=== PATIENT | male | born 1940 | race Caucasian/White ===

== ENCOUNTER 2019-03-23 14:05 | Outpatient (CLI) | payer MEDICARE, BC, SELFPAY ==
--- NOTE | 2019-03-23 14:14 | XR_ITS ---
WS: [id number] DEXA (DUAL ENERGY X-RAY ABSORPTIOMETRY) Bone mineral density was performed using a [employer] machine. HISTORY: AGE RELATED OSTEOPOROSIS WITHOUT CURRENT PATHOLOGICAL FRACTURE, 76-year-old male. COMPARISON: None available. Lumbar spine BMD (L1-L4): 1.057 g/cm2 T score: -1.4 Z score: -1.2 Total hip BMD: Left: 0.802 g/cm2. T score: -2.1 Z score: -1.4 Right: 0.763 g/cm2. T score: -2.3 Z score: -1.7 10 year probability of a major osteoporotic fracture is 13%. XR/XR DEXA axial skeleton* [id number] IMPRESSION: OSTEOPENIA.
== END 2019-03-23 14:06 | disposition home or self-care (01) ==
LOC: RADWPI 14:13
PROVIDERS: Family Provider Family Medicine; PCP Family Medicine; Visit Provider Nurse Practitioner
DX: M81.0 Age-related osteoporosis without current pathological fracture (principal)
CPT/HCPCS: 77080

== ENCOUNTER → 2019-10-19 10:33 | Outpatient (BNVA) | payer MEDICARE, BC, SELFPAY | PROVIDERS: Family Provider Family Medicine; PCP Family Medicine; Visit Provider Internal Medicine Rheumatology | DX: Z79.899 Other long term (current) drug therapy (principal); M81.0 Age-related osteoporosis without current pathological fracture | CPT/HCPCS: 36415; 82310 ==

== ENCOUNTER 2019-10-27 12:59 | Outpatient (CLI) | payer MEDICARE, BC, SELFPAY ==
[2019-10-27 13:00] VITALS: BP 138/74; PULSE 50; RESP 16; TEMP 36.9; O2SAT 94
[2019-10-27] MEDS: denosumab 60 mg SDV SUBCUT (13:20)
[2019-10-27 13:54] VITALS: BP 145/76; PULSE 53; RESP 16; TEMP 36.6; O2SAT 97
== END 2019-10-27 13:00 | disposition home or self-care (01) ==
LOC: RHEOACUTE 13:01
PROVIDERS: Family Provider Family Medicine; PCP Family Medicine; Visit Provider Internal Medicine Rheumatology
DX: M81.0 Age-related osteoporosis without current pathological fracture (principal)
CPT/HCPCS: 96372; J0897

== ENCOUNTER 2020-05-08 08:07 | Outpatient (CLI) | payer MEDICARE, BC, SELFPAY ==
[2020-05-08 09:02] LABS: Calcium 9.3 mg/dL (8.5-10.5)
== END 2020-05-08 08:08 | disposition home or self-care (01) ==
LOC: LAB 08:12
PROVIDERS: Family Provider Family Medicine; PCP Family Medicine; Visit Provider Nurse Practitioner
DX: M80.021A Age-related osteoporosis with current pathological fracture, right humerus, initial encounter for fracture (principal); X58.XXXA Exposure to other specified factors, initial encounter
CPT/HCPCS: 82310

== ENCOUNTER 2020-05-16 13:14 | Outpatient (CLI) | payer MEDICARE, BC, SELFPAY ==
[2020-05-16 13:25] VITALS: BP 148/84; PULSE 52; RESP 16; TEMP 37.2; O2SAT 97
[2020-05-16 13:35] VITALS: BP 148/84; PULSE 52; RESP 16; TEMP 37.2; O2SAT 97
[2020-05-16] MEDS: denosumab 60 mg SDV SUBCUT (13:35)
== END 2020-05-16 13:15 | disposition home or self-care (01) ==
PROVIDERS: Family Provider Family Medicine; PCP Family Medicine; Visit Provider Nurse Practitioner
DX: M80.021A Age-related osteoporosis with current pathological fracture, right humerus, initial encounter for fracture (principal)
CPT/HCPCS: 96372; J0897

== ENCOUNTER 2020-11-09 10:47 | Outpatient (CLI) | payer MEDICARE, BC, SELFPAY ==
[2020-11-09 12:48] LABS: Albumin Level 4.4 g/dL (3.5-5.2); Calcium 8.7 mg/dL (8.5-10.5)
== END 2020-11-09 10:48 | disposition home or self-care (01) ==
PROVIDERS: PCP Family Medicine; Referring Provider Nurse Practitioner; Visit Provider Nurse Practitioner
DX: M81.0 Age-related osteoporosis without current pathological fracture (principal)
CPT/HCPCS: 36415; 82040; 82310

== ENCOUNTER 2020-11-17 05:52 | Outpatient (CLI) | payer MEDICARE, BC, SELFPAY ==
[2020-11-17 09:37] VITALS: BP 150/78; PULSE 56; RESP 18; TEMP 36.8; O2SAT 96
[2020-11-17] MEDS: denosumab 60 mg SDV SUBCUT (09:45)
[2020-11-17 09:59] VITALS: BP 142/76; PULSE 55; RESP 18; TEMP 36.6; O2SAT 96
== END 2020-11-17 05:53 | disposition home or self-care (01) ==
LOC: ONCMED 05:53
PROVIDERS: PCP Family Medicine; Referring Provider Nurse Practitioner; Visit Provider Nurse Practitioner
DX: M81.0 Age-related osteoporosis without current pathological fracture (principal)
CPT/HCPCS: 96372; J0897

== ENCOUNTER 2021-02-03 09:40 | Emergency (ER) | payer MEDICARE, BC, SELFPAY ==
[2021-02-03 09:42] VITALS: BP 183/87; PULSE 62; RESP 15; O2SAT 97; BMI 27.3
--- NOTE | 2021-02-03 09:45 | CTR_ITS ---
PROCEDURE INFORMATION: Exam: CT Head Without Contrast Exam date and time: 02/03/2021 9:45 AM Age: 80 years old Clinical indication: Injury or trauma; Blunt trauma (contusions or hematomas); Patient HX: Fall hitting head on concrete TECHNIQUE: Imaging protocol: Computed tomography of the head without contrast. Total images: 208 Radiation optimization: All CT scans at this facility use at least one of these dose optimization techniques: automated exposure control; mA and/or kV adjustment per patient size (includes targeted exams where dose is matched to clinical indication); or iterative reconstruction. COMPARISON: No relevant prior studies available. RADIATION DOSE METRICS: Total DLP (mGy-cm): 950.16 FINDINGS: Brain: Global brain atrophy and chronic white matter ischemic changes are present. Cerebral ventricles: Ventricles are appropriate in size for degree of atrophy. Paranasal sinuses: Air-fluid level present in the left maxillary sinus. Mastoid air cells: Visualized mastoid air cells are well aerated. Bones/joints: Unremarkable. No acute fracture. Soft tissues: Unremarkable. CT/CT head wo con* [id number] IMPRESSION: No acute intracranial abnormality. Radiation Dose CTDIVOL = (mGy): DLP = 950.16 (mGy-cm)
--- NOTE | 2021-02-03 09:45 | CTR_ITS ---
PROCEDURE INFORMATION: Exam: CT Maxillofacial Without Contrast Exam date and time: 02/03/2021 9:45 AM Age: 80 years old Clinical indication: Injury or trauma; Fall; Blunt trauma (contusions or hematomas); Patient HX: PT fell hitting forehead on concrete. Laceration to R forehead TECHNIQUE: Imaging protocol: Computed tomography images of the face without contrast. Total images: 255 Radiation optimization: All CT scans at this facility use at least one of these dose optimization techniques: automated exposure control; mA and/or kV adjustment per patient size (includes targeted exams where dose is matched to clinical indication); or iterative reconstruction. COMPARISON: CT head wo con* [id number] 02/03/2021 9:59 AM RADIATION DOSE METRICS: Total DLP (mGy-cm): 734.23 FINDINGS: Orbital cavity: Orbits are normal. Globes are unremarkable. Bones/joints: Cervical spine pathology previously discussed on CT of the cervical spine. No facial fractures detected. Paranasal sinuses: Mucosal thickening of the paranasal sinuses noted. Air-fluid level present in the left maxillary sinus. Soft tissues: Unremarkable. Other findings: Streak artifact from dental amalgam. CT/CT facial bones wo con* [id number] IMPRESSION: No facial fractures detected. Radiation Dose CTDIVOL = (mGy): DLP = 734.23 (mGy-cm)
--- NOTE | 2021-02-03 09:45 | CTR_ITS ---
PROCEDURE INFORMATION: Exam: CT Cervical Spine Without Contrast Exam date and time: 02/03/2021 9:45 AM Age: 80 years old Clinical indication: Injury or trauma; Fall; Blunt trauma; Prior surgery; Surgery date: 6+ months; Surgery type: Cervical fusion; Patient HX: PT fell this a. M hitting forehead on concrete TECHNIQUE: Imaging protocol: Computed tomography images of the cervical spine without contrast. Total images: 336 Radiation optimization: All CT scans at this facility use at least one of these dose optimization techniques: automated exposure control; mA and/or kV adjustment per patient size (includes targeted exams where dose is matched to clinical indication); or iterative reconstruction. COMPARISON: CT facial bones wo con* [id number] 02/03/2021 10:01 AM RADIATION DOSE METRICS: Total DLP (mGy-cm): 660.53 FINDINGS: Bones/joints: Remote healed type 2 dens fracture with surgical occipital to C3 fusion. C4-6 anterior cervical spine fusion. Plate and screws in place with no evidence of hardware failure. Discs/Spinal canal/Neural foramina: Prominent atlantodental degenerative changes. C3-C4 Degenerative disc disease with disc space narrowing and osteophyte formation. Facet joint degenerative changes are present. C6-C7 Degenerative disc disease with disc space narrowing and osteophyte formation. Facet joint degenerative changes are present. Lungs: Lung apices are normal. Soft tissues: Unremarkable. CT/CT cervical spin wo con* [id number] IMPRESSION: No acute findings. Radiation Dose CTDIVOL = (mGy): DLP = 660.53 (mGy-cm)
--- NOTE | 2021-02-03 10:30 | W.ED.GENADLT ---
HPI - General Adult General: Chief complaint: Fall Stated complaint: HEAD LACERATION FROM FALL Time Seen by Provider: 02/03/21 09:43 History of Present Illness: HPI narrative: 82-year-old male with a history of Parkinson's disease, atrial fibrillation not on anticoagulation presented to the emergency room after an episode of mechanical fall. Patient reportedly tripped on his right toe and fell to the ground. Patient denies LOC. He has a mild bruise over the right forehead. Patient came to the emergency room for an eval. No other focal complaints of pain. No associated chest pain, shortness breath, palpitation, nausea/vomiting, diarrhea, lightheadedness prior to the episode of fall. Onset:9am Duration:1 hr ago Location:home Severity:mild Review of Systems Narrative: Constitutional: No fever, no chills. HEENT: No vision changes CV: No chest pain, no palpitations PULM: no cough, no dyspnea. GI: No abdominal pain, no N/V/D. : No dysuria MSKEL: No muscle pain SKIN: +R forehead bruise NEURO: No headache, no focal weakness. HEME: No visible bruises PSYCH: Normal mood PFS ED PFSH: Medical History Atrial fibrillation Diastolic dysfunction HTN (hypertension) Family History Mother , CHF age 66 CHF (congestive heart failure) Social History Smoking and tobacco status: never smoked Physical Exam Narrative: EXAM NARRATIVE: Head: Atraumatic Eyes: PERRL, conjunctiva without injection ENT: Mucous membrane moist NECK: Supple, ROM intact LUNGS: LCTAB, no crackles/rhonchi CV: RRR ABDOMEN: Soft, nontender in all quadrants EXTREMITY: Normal ROM SKIN: +R forehead bruise NEURO: Awake and alert, no focal motor deficits PSYCH: Normal mood and affect Course Vital Signs: Vital signs: Vital Signs Pulse Rate 57 L 02/03/21 10:48 Respiratory Rate 16 02/03/21 10:48 Blood Pressure 183/87 02/03/21 10:48 Pulse Oximetry 93 02/03/21 10:48 MDM - General Adult MDM Narrative: Medical decision making narrative: 80-year-old male with a history of atrial fibrillation Parkinson's disease presented to the emergency room with chest episode mechanical fall. Patient has a mild abrasion of her of the right forehead was cleaned today. Patient is given bacitracin ointment to apply daily. CT brain, CT face, CT C-spine negative for any acute findings. Rx Tylenol as needed concussion/headache Disposition: Discharge. Patient counseled regarding diagnostic impression, treatment plan. Patient given ED strict return precautions to return for continuation, worsening, or development of new symptoms. Instructed to f/u w/ PCP regarding symptoms today. Patient verbalized understanding. Imaging Data^: Other Imaging: Radiologist's impression: [employer] [id number] Scan ReportSigned Patient: Naun Schneider #: [id number]: 3Acct#:[id number]/Sex: 80 / MADM Date: 02/03/21Loc: [facility]/Bed:Attending Dr: Ordering Provider/Ordering MD: Caitlyn Andrews MD Date of Service: 02/03/21 Procedure(s): CT head wo con* [id number] Accession Number(s): [id number] Report Number: [id number] PROCEDURE INFORMATION: Exam: CT Head Without Contrast Exam date and time: 02/03/2021 9:45 AM Age: 80 years old Clinical indication: Injury or trauma; Blunt trauma (contusions or hematomas); Patient HX: Fall hitting head on concrete TECHNIQUE: Imaging protocol: Computed tomography of the head without contrast. Total images: 208 Radiation optimization: All CT scans at this facility use at least one of these dose optimization techniques: automated exposure control; mA and/or kV adjustment per patient size (includes targeted exams where dose is matched to clinical indication); or iterative reconstruction. COMPARISON: No relevant prior studies available. RADIATION DOSE METRICS: Total DLP (mGy-cm): 950.16 FINDINGS: Brain: Global brain atrophy and chronic white matter ischemic changes are present. Cerebral ventricles: Ventricles are appropriate in size for degree of atrophy. Paranasal sinuses: Air-fluid level present in the left maxillary sinus. Mastoid air cells: Visualized mastoid air cells are well aerated. Bones/joints: Unremarkable. No acute fracture. Soft tissues: Unremarkable. CT/CT head wo con* [id number] IMPRESSION: No acute intracranial abnormality. Radiation Dose CTDIVOL = (mGy): DLP = 950.16 (mGy-cm) Dictated By:Steven Guzman MDSigned By:Steven Guzman MDSigned Date/Time:02/03/21 1021DD/ [address] [id number] Scan ReportSigned Patient: Naun Schneider #: [id number]: 1942cct#:[id number]/Sex: 80 / MADM Date: 02/03/21Loc: ERRoom/Bed:Attending Dr: Ordering Provider/Ordering MD: Caitlyn Andrews MD Date of Service: 02/03/21 Procedure(s): CT facial bones wo con* [id number] Accession Number(s): [id number] Report Number: [id number] PROCEDURE INFORMATION: Exam: CT Maxillofacial Without Contrast Exam date and time: 02/03/2021 9:45 AM Age: 80 years old Clinical indication: Injury or trauma; Fall; Blunt trauma (contusions or hematomas); Patient HX: PT fell hitting forehead on concrete. Laceration to R forehead TECHNIQUE: Imaging protocol: Computed tomography images of the face without contrast. Total images: 255 Radiation optimization: All CT scans at this facility use at least one of these dose optimization techniques: automated exposure control; mA and/or kV adjustment per patient size (includes targeted exams where dose is matched to clinical indication); or iterative reconstruction. COMPARISON: CT head wo con* [id number] 02/03/2021 9:59 AM RADIATION DOSE METRICS: Total DLP (mGy-cm): 734.23 FINDINGS: Orbital cavity: Orbits are normal. Globes are unremarkable. Bones/joints: Cervical spine pathology previously discussed on CT of the cervical spine. No facial fractures detected. Paranasal sinuses: Mucosal thickening of the paranasal sinuses noted. Air-fluid level present in the left maxillary sinus. Soft tissues: Unremarkable. Other findings: Streak artifact from dental amalgam. CT/CT facial bones wo con* [id number] IMPRESSION: No facial fractures detected. Radiation Dose CTDIVOL = (mGy): DLP = 734.23 (mGy-cm) Dictated By:Steven Guzman MDSigned By:Steven Guzman MDSigned Date/Time:02/03/21 1027DD/ 0945 [facility]ike[facility]qlq[address] [place], [place] [address]AH Scan ReportSigned Patient: Naun Schneider #: [id number]: 1942cct#:[id number]/Sex: 80 / MADM Date: 02/03/21Loc: ERRoom/Bed:Attending Dr: Ordering Provider/Ordering MD: Caitlyn Andrews MD Date of Service: 02/03/21 Procedure(s): CT cervical spin wo con* [id number] Accession Number(s): [id number] Report Number: [id number] PROCEDURE INFORMATION: Exam: CT Cervical Spine Without Contrast Exam date and time: 02/03/2021 9:45 AM Age: 80 years old Clinical indication: Injury or trauma; Fall; Blunt trauma; Prior surgery; Surgery date: 6+ months; Surgery type: Cervical fusion; Patient HX: PT fell this a. M hitting forehead on concrete TECHNIQUE: Imaging protocol: Computed tomography images of the cervical spine without contrast. Total images: 336 Radiation optimization: All CT scans at this facility use at least one of these dose optimization techniques: automated exposure control; mA and/or kV adjustment per patient size (includes targeted exams where dose is matched to clinical indication); or iterative reconstruction. COMPARISON: CT facial bones wo con* [id number] 02/03/2021 10:01 AM RADIATION DOSE METRICS: Total DLP (mGy-cm): 660.53 FINDINGS: Bones/joints: Remote healed type 2 dens fracture with surgical occipital to C3 fusion. C4-6 anterior cervical spine fusion. Plate and screws in place with no evidence of hardware failure. Discs/Spinal canal/Neural foramina: Prominent atlantodental degenerative changes. C3-C4 Degenerative disc disease with disc space narrowing and osteophyte formation. Facet joint degenerative changes are present. C6-C7 Degenerative disc disease with disc space narrowing and osteophyte formation. Facet joint degenerative changes are present. Lungs: Lung apices are normal. Soft tissues: Unremarkable. CT/CT cervical spin wo con* [id number] IMPRESSION: No acute findings. Radiation Dose CTDIVOL = (mGy): DLP = 660.53 (mGy-cm) Dictated By:Steven Guzman MDSigned By:Steven Guzman MDSigned Date/Time:02/03/21 1025DD/ 0945 Discharge Plan Discharge Patient Disposition: Home Clinical Impression: Fall, Abrasion of face Condition: Stable Prescriptions: New acetaminophen 500 mg tablet 500 mg PO Q6H PRN (Reason: pain) 5 Days Qty: 20 RF: 0 No Action multivitamin Tablet 1 tab PO DAILY RF: 0 omega-3 fatty acids [Fish Oil Concentrate] 1,000 mg capsule 1,000 mg PO DAILY RF: 0 coQ10 (ubiquinol) 200 mg capsule 200 mg PO DAILY RF: 0 tamsulosin 0.4 mg capsule 0.4 mg PO DAILY RF: 0 aspirin 325 mg tablet 325 mg PO DAILY RF: 0 paroxetine HCl 40 mg tablet 40 mg PO DAILY RF: 0 ropinirole 2 mg tablet 3 mg PO TID RF: 0 cholecalciferol (vitamin D3) 50 mcg (2,000 unit) capsule 50 mcg PO DAILY RF: 0 calcium carbonate 600 mg calcium (1,500 mg) tablet 600 mg PO DAILY RF: 0 furosemide 20 mg tablet 20 mg PO DAILY PRN (Reason: edema) Qty: 90 RF: 3 potassium chloride 10 mEq tablet extended release 10 meq PO DAILY PRN (Reason: Take with Lasix) Qty: 90 RF: 3 diltiazem HCl [Cardizem] 60 mg tablet 60 mg PO DAILY PRN (Reason: atrial fibrillation) Qty: 30 RF: 6 carbidopa-levodopa 25-100 mg tablet 1 tab PO TID RF: 0 rivastigmine tartrate 1.5 mg capsule 1.5 mg PO BID RF: 0 zinc 50 mg tablet 50 mg PO DAILY RF: 0 Prolia 60 mg/mL syringe 60 mg SUBCUT Q7D RF: 0 clonidine HCl 0.1 mg tablet 0.1 mg PO DIRECTED PRN (Reason: hypertensive emergency) Qty: 90 RF: 3 famotidine 20 mg tablet 20 mg PO BID Qty: 60 RF: 3 amlodipine 2.5 mg tablet 2.5 mg PO BID Qty: 60 RF: 3 Discharge Orders: Discharge ED (Routine); Ordered 02/03/21 Ordered By: Caitlyn Andrews Referrals: Maxim Wang MD [Primary Care Provider] - Discharge Diet: Advance as tolerated Discharge Activity: Resume usual activity Patient Instructions: Concussion (ED), Fall Prevention (ED) Activity Restrictions/Additional Instructions: Our funeral location manager will have you follow-up with a primary care provider in the next few days. You would be expected to have a phone call with our funeral location manager who will put you on the schedule. Please come back to the emergency room you have any more episodes of fall, if you have any injuries, or any new concerning complaints. Coding Level of Care Code ED Licensed Psychologist Manager for [facility]
[2021-02-03] MEDS: bacitracin ointment Pkt 1 EACH TOPICAL (10:40)
[2021-02-03] MEDS: tetanus-dipt-pertussis 0.5 mL SDV IM (10:40)
[2021-02-03 10:48] VITALS: BP 183/87; PULSE 57; RESP 16; O2SAT 93
== END 2021-02-03 10:57 | disposition home or self-care (01) ==
PROVIDERS: Emergency Provider Emergency Medicine; PCP Family Medicine
DX: S00.81XA Abrasion of other part of head, initial encounter (principal); Z79.82 Long term (current) use of aspirin; I10 Essential (primary) hypertension; Z23 Encounter for immunization; G20 Parkinson's disease; W01.0XXA Fall on same level from slipping, tripping and stumbling without subsequent striking against object, initial encounter
CPT/HCPCS: 70450; 70486; 72125; 90471; 90715; 99283

== ENCOUNTER 2021-05-16 11:05 | Outpatient (CLI) | payer MEDICARE, BC, SELFPAY ==
[2021-05-16 12:00] LABS: Albumin Level 4.8 g/dL (3.5-5.2); Calcium 9.8 mg/dL (8.5-10.5)
== END 2021-05-16 11:06 | disposition home or self-care (01) ==
PROVIDERS: PCP Family Medicine; Referring Provider Nurse Practitioner; Visit Provider Nurse Practitioner
DX: M81.0 Age-related osteoporosis without current pathological fracture (principal); Z79.899 Other long term (current) drug therapy
CPT/HCPCS: 36415; 82040; 82310

== ENCOUNTER 2021-05-24 10:48 | Outpatient (CLI) | payer MEDICARE, BC, SELFPAY ==
[2021-05-24 11:05] VITALS: BP 162/83; PULSE 58; RESP 18; TEMP 36.8; O2SAT 98
[2021-05-24] MEDS: denosumab 60 mg SDV SUBCUT (11:09)
[2021-05-24 11:19] VITALS: BP 143/77; PULSE 59; RESP 18; TEMP 36.8; O2SAT 97
== END 2021-05-24 10:49 | disposition home or self-care (01) ==
PROVIDERS: PCP Family Medicine; Referring Provider Nurse Practitioner; Visit Provider Nurse Practitioner
DX: M81.0 Age-related osteoporosis without current pathological fracture (principal)
CPT/HCPCS: 96372; J0897

== ENCOUNTER 2021-12-31 11:54 | Outpatient (CLI) | payer MEDICARE, BC, SELFPAY ==
[2021-12-31 12:47] LABS: Albumin Level 4.3 g/dL (3.5-5.2); Calcium 9.4 mg/dL (8.5-10.5)
[2021-12-31 12:55] VITALS: BP 151/81; PULSE 67; RESP 18; TEMP 36.5; O2SAT 95
[2021-12-31] MEDS: denosumab 60 mg SDV SUBCUT (13:01)
[2021-12-31 13:06] VITALS: BP 140/78; PULSE 57; RESP 18; TEMP 36.7; O2SAT 95
== END 2021-12-31 11:55 | disposition home or self-care (01) ==
PROVIDERS: PCP Family Medicine; Visit Provider Nurse Practitioner
DX: M81.0 Age-related osteoporosis without current pathological fracture (principal)
CPT/HCPCS: 36415; 82040; 82310; 96372; 96401; J0897

== ENCOUNTER 2022-01-15 12:53 | Outpatient (CLI) | payer MEDICARE, BC, SELFPAY ==
--- NOTE | 2022-01-15 13:27 | XR_ITS ---
WS: [id number] DEXA (DUAL ENERGY X-RAY ABSORPTIOMETRY) Bone mineral density was performed using a [employer] machine. HISTORY: OSTEOPOROSIS COMPARISON: 03/23/2019 Lumbar spine BMD (L1-L4): 1.186 g/cm2 T score: -0.3 Z score: -0.3 Total hip BMD: Left: 0.818 g/cm2. T score: -2.0 Z score: -1.3 Right: 0.805 g/cm2. T score: -2.1 Z score: -1.4 10 year probability of a major osteoporotic fracture is 13.1%. Compared to the prior study from 03/23/2019. Lumbar spine bone mineral density has increased by 12.2%. Bilateral hips bone mineral density has increased by 3.7%. XR/XR DEXA axial skeleton* [id number] IMPRESSION: OSTEOPENIA based upon the WHO classification for females. Significant increase in bone mineral density within the lumbar spine and hips since the prior study.
== END 2022-01-15 12:54 | disposition home or self-care (01) ==
LOC: RAD 12:53
PROVIDERS: PCP Family Medicine; Visit Provider Family Medicine
DX: M81.0 Age-related osteoporosis without current pathological fracture (principal)
CPT/HCPCS: 77080

== ENCOUNTER → 2022-02-05 13:27 | Outpatient (BNVA) | payer MEDICARE, BC, SELFPAY | PROVIDERS: PCP Family Medicine; Visit Provider Internal Medicine Cardiovascular Disease | DX: I11.9 Hypertensive heart disease without heart failure (principal); I48.91 Unspecified atrial fibrillation; G20 Parkinson's disease | CPT/HCPCS: 99213 ==

== ENCOUNTER 2022-08-14 16:12 | Outpatient (CLI) | payer MEDICARE, BC, SELFPAY ==
[2022-08-14 17:02] LABS: Add Urine Microscopic? YES; Bilirubin Urine 1+ (Negative); Blood Urine 3+ (Negative); Glucose Urine UA Norm (Normal); Ketones Urine 1+ (Negative); Leukocyte Esterase Urine Negative (Negative); Nitrate Urine Positive (Negative); Protein Urine Trace (Negative); Specific Gravity, Urine 1.025 (1.005-1.030); Urine Appearance Cloudy (CLEAR); Urine Color Orange (Yellow); pH Urine 6 (5-7)
[2022-08-14 17:12] LABS: Bacteria Urine 1+ /hpf; Mucus Urine 2+ /hpf; RBC Urine 15-25 /hpf (0-2); Squamous Epithelial Cell Urine RARE /hpf (0-5); WBC Urine >100 /hpf (0-5)
[2022-08-14 17:13] LABS: Add Urine Culture? No; Calcium Oxalate Crystals Urine TOO NUMEROUS TO CNT /hpf
[2022-08-14 17:42] LABS: Urobilinogen Urine Norm (Negative)
== END 2022-08-14 16:13 | disposition home or self-care (01) ==
LOC: LAB 16:15
PROVIDERS: PCP Family Medicine; Visit Provider Family Medicine
DX: N40.1 Benign prostatic hyperplasia with lower urinary tract symptoms (principal); R33.8 Other retention of urine
CPT/HCPCS: 81001

== ENCOUNTER 2022-10-03 11:05 | Oncology outpatient (recurring) (ONCR) | payer MEDICARE, BC, SELFPAY ==
[2022-10-03] MEDS: denosumab 60 mg SDV SUBCUT (11:10)
== END 2022-10-31 23:59 | disposition home or self-care (01) ==
LOC: ONCMED 11:06
PROVIDERS: PCP Family Medicine; Visit Provider Family Medicine
DX: M81.0 Age-related osteoporosis without current pathological fracture (principal)
CPT/HCPCS: 96372; J0897

== ENCOUNTER 2022-12-25 14:40 | Outpatient (CLI) | payer MEDICARE, BC, SELFPAY ==
[2022-12-25 15:06] LABS: Bilirubin Urine Neg (Negative); Blood Urine 3+ (Negative); Glucose Urine UA Norm (Normal); Ketones Urine 1+ (Negative); Nitrate Urine Positive (Negative); Protein Urine 1+ (Negative); Urine Appearance Cloudy (CLEAR); Urine Color Yellow (Yellow); Urobilinogen Urine Norm (Negative); pH Urine 6 (5-7)
[2022-12-25 15:07] LABS: Add Urine Microscopic? YES; Leukocyte Esterase Urine 2+ (Negative)
[2022-12-25 15:25] LABS: RBC Urine 15-25 /hpf (0-2); WBC Urine >100 /hpf (0-5)
[2022-12-25 15:26] LABS: Amorphous Sediment Urine 1+ /hpf; Bacteria Urine 4+ /hpf; Calcium Oxalate Crystals Urine 0-4 /hpf; Mucus Urine 1+ /hpf
[2022-12-25 15:28] LABS: Add Urine Culture? No
== END 2022-12-25 14:41 | disposition home or self-care (01) ==
LOC: LAB 14:43
PROVIDERS: PCP Family Medicine; Visit Provider Family Medicine
DX: N40.1 Benign prostatic hyperplasia with lower urinary tract symptoms (principal)
CPT/HCPCS: 81001; 87077; 87086; 87186

== ENCOUNTER 2023-01-13 16:05 | Outpatient (CLI) | payer MEDICARE, BC, SELFPAY ==
[2023-01-13 16:49] LABS: Add Urine Microscopic? YES; Bacteria Urine TRACE /hpf; Bilirubin Urine Neg (Negative); Blood Urine 2+ (Negative); Glucose Urine UA Norm (Normal); Ketones Urine 1+ (Negative); Leukocyte Esterase Urine 2+ (Negative); Mucus Urine 2+ /hpf; Nitrate Urine Negative (Negative); Protein Urine 2+ (Negative); RBC Urine 0-4 /hpf (0-2); Squamous Epithelial Cell Urine 0-4 /hpf (0-5); Urine Appearance SL Hazy (CLEAR); Urine Color Yellow (Yellow); Urobilinogen Urine Norm (Negative); WBC Urine >100 /hpf (0-5); pH Urine 5 (5-7)
[2023-01-13 16:50] LABS: Add Urine Culture? No
== END 2023-01-13 16:06 | disposition home or self-care (01) ==
PROVIDERS: PCP Family Medicine; Visit Provider Family Medicine
DX: R33.8 Other retention of urine (principal)
CPT/HCPCS: 81001; 87077; 87086; 87186

== ENCOUNTER → 2023-01-28 13:43 | Outpatient (BNVA) | payer MEDICARE, BC, SELFPAY | PROVIDERS: PCP Family Medicine; Visit Provider Podiatrist Foot & Ankle Surgery | DX: L60.8 Other nail disorders (principal); M20.41 Other hammer toe(s) (acquired), right foot; M20.42 Other hammer toe(s) (acquired), left foot; L60.3 Nail dystrophy; I73.9 Peripheral vascular disease, unspecified | CPT/HCPCS: 11721; 99203 ==

== ENCOUNTER 2023-03-16 21:09 | Inpatient (IN) | payer MEDICARE, BC, SELFPAY ==
[2023-03-16] VITALS (12 sets, daily range): BP systolic 107–185; BP diastolic 59–90; PULSE 64–97; RESP 14–34; TEMP 37.9; O2SAT 90–99; BMI 26.2
--- NOTE | 2023-03-16 21:15 | CTR_ITS ---
PROCEDURE INFORMATION: Exam: CT Head Without Contrast Exam date and time: 03/16/2023 10:19 PM Age: 82 years old Clinical indication: Altered mental status/memory loss; Patient HX: EMS arrival for AMS and hypoxia. Intubated immediately upon arrival. History of parkinson's. TECHNIQUE: Imaging protocol: Computed tomography of the head without contrast. Radiation optimization: All CT scans at this facility use at least one of these dose optimization techniques: automated exposure control; mA and/or kV adjustment per patient size (includes targeted exams where dose is matched to clinical indication); or iterative reconstruction. COMPARISON: CT head wo con* [id number] 02/03/2021 9:59 AM RADIATION DOSE METRICS: Total DLP (mGy-cm): 2208.44 FINDINGS: Brain: Moderate diffuse white matter disease likely reflecting chronic microvascular ischemic changes. Cerebral ventricles: No ventriculomegaly. Paranasal sinuses: Visualized sinuses are unremarkable. No fluid levels. Mastoid air cells: Visualized mastoid air cells are well aerated. Bones/joints: Unremarkable. No acute fracture. Soft tissues: Unremarkable. CT/CT head wo con* [id number] IMPRESSION: Negative for intracranial hemorrhage or mass effect.
--- NOTE | 2023-03-16 21:15 | XRR_ITS ---
PROCEDURE INFORMATION: Exam: XR Chest Exam date and time: 03/16/2023 9:36 PM Age: 82 years old Clinical indication: Device placement; Ett placement (vent status); Patient HX: Respiratory distress; Ett, og, central line placement TECHNIQUE: Imaging protocol: Radiologic exam of the chest. Views: 1 view. COMPARISON: CR XR abdomen 1V* [id number] 09/24/2022 11:18 AM FINDINGS: Tubes, catheters and devices: Endotracheal tube tip in place 3.8 cm above the barrie. Right central venous catheter tip at the atrial caval junction. Enteric tube tip extending below the diaphragm over the gastric bubble. Lungs: Emphysematous changes. Left mid to lower lung field pneumonia. Pleural spaces: Unremarkable. No pleural effusion. No pneumothorax. Heart/Mediastinum: Unremarkable. No cardiomegaly. Bones/joints: Unremarkable. XR/XR chest 1V portable [id number] IMPRESSION: 1. Endotracheal tube tip in place 3.8 cm above the barrie. 2. Right central venous catheter tip at the atrial caval junction. 3. Enteric tube tip extending below the diaphragm over the gastric bubble. 4. Emphysematous changes. 5. Left mid to lower lung field pneumonia.
[2023-03-16 21:23] LABS: Basophils # 0.1 10^3/uL (0.0-0.1); Basophils % 0.4 %; Eosinophils % 0.1 %; Hematocrit 45.6 % (37-53); Lymphocytes % 7.1 %; Mean Corpuscular HGB Conc 31.8 g/dL (30-55); Mean Corpuscular Hemoglobin 27.6 pg (27-33); Mean Corpuscular Volume 86.9 fl (82-101); Mean Platelet Volume 12.3 fL (7.4-10.4); Monocytes # 0.6 10^3/uL (0.2-0.9); Monocytes % 4.6 %; Neutrophils # 11.65 10^3/uL (1.8-7.7); Neutrophils % 87.4 %; Nucleated Red Blood Cells % 0 %; Platelet Count 187 10^3/cmm (157-399); Red Blood Count 5.25 10^6/uL (3.85-5.65); Red Cell Distribution Width 14.9 % (12.1-15.1); White Blood Count 13.34 10^3/uL (3.29-11.43)
[2023-03-16] MEDS: etomidate 2 mg/mL INJ SDV 10 mL 15 MG IVP (21:23)
[2023-03-16] MEDS: succinylcholine 20 mg/mL SDV 10mL 150 MG IVP (21:23)
[2023-03-16] MEDS: propofol 1,000 MG/100 ML INJ 2.93 MG IV (21:35)
[2023-03-16] MEDS: fentaNYL 1,000 MCG/100 ML BAG 0.5 MCG IV (21:36)
--- NOTE | 2023-03-16 21:41 | PC.NURSE ---
per Dr Linder verbal order 30mg bolus was drawn from vile and given to pt prior to drip being started.
--- NOTE | 2023-03-16 21:42 | PC.NURSE ---
Pt was given 30mg bolus at 2142
[2023-03-16 21:51] LABS: ABG PH Result 7.32 (7.35-7.45); Arterial Blood Gas Hematocrit 44.9 % (42-52); Base Excess ABG -1.7 mmol/L (-2.0-2.0); Blood Gas Allen Test Pos; Blood Gas Sample Site Radial, left; Blood Gas Sample Type Arterial; Fractionated Inspired Oxygen 0.8 %; HCO3 ABG 24.9 mmol/L (22-26); Oxygen Device VENT; PO2 ABG 98.2 mmHg (80.0-100.0); PO2 FiO2 Ratio Arterial Blood 0
[2023-03-16 21:55] LABS: INR 1.11 (0.8-1.2)
[2023-03-16 21:56] LABS: Partial Thromboplastin Time 27.1 SECONDS (23.9-36.7)
[2023-03-16 21:58] LABS: Bilirubin Urine 1+ (Negative); Glucose Urine UA 2+ (Normal); Ketones Urine 2+ (Negative); Nitrate Urine Positive (Negative); Protein Urine 2+ (Negative); Urine Appearance Cloudy (CLEAR); Urine Color Brown (Yellow); pH Urine 5 (5-7)
[2023-03-16 21:59] LABS: Add Urine Microscopic? YES; Blood Urine 3+ (Negative); Leukocyte Esterase Urine 2+ (Negative); Urobilinogen Urine Norm (Negative)
[2023-03-16 22:04] LABS: Add Urine Culture? Yes; Amorphous Sediment Urine 1+ /hpf; Bacteria Urine 2+ /hpf; Hyaline Casts Urine 0-4 /lpf; Mucus Urine 1+ /hpf; RBC Urine 15-25 /hpf (0-2); Squamous Epithelial Cell Urine 0-4 /hpf (0-5); WBC Urine 55-80 /hpf (0-5)
[2023-03-16 22:14] LABS: Alanine Aminotransferase 21 U/L (0-41); Albumin Level 4.3 g/dL (3.5-5.2); Alkaline Phosphatase 81 U/L (40-130); Anion Gap 19.2 (5-19); Aspartate Amino Transferase 14 U/L (0-40); Blood Urea Nitrogen 13 mg/dL (8-23); Calcium 9.1 mg/dL (8.5-10.5); Carbon Dioxide 24 mmol/L (22-29); Chloride 99 mmol/L (98-107); Globulin 2.7 g/dL (1.3-4.6); Glucose 205 mg/dL (65-115); Magnesium 1.9 mg/dL (1.7-2.3); NT Pro B Type Natriuretic Pept 910 pg/mL (0-450); Osmolality Calculated 292 mOsm/kg (285-295); Potassium 4.2 mmol/L (3.5-5.1); Sodium 138 mmol/L (136-145); Total Bilirubin 1.2 mg/dL (0.15-1.2)
--- NOTE | 2023-03-16 22:30 | ED_ITS ---
HPI - General Adult 2 General: Chief complaint: General Medical Stated complaint: WEAKNESS Time Seen by Provider: 03/16/23 21:10 History of Present Illness: 82-year-old male with a history of parki nsonism intermittent atrial fibrillation, and UTI. He has an indwelling Moreau catheter, as well as a PEG tube. He presents with increasing shortness of breath over the course of today. He has not felt well in a couple of days his says. He has had intermittent increased confusion, generalized weakness. He coughs more today, and began to get significantly short of breath this evening. Lift assist was called yesterday for weakness, but he seemed to do okay last night. Tonight became acutely short of breath, with respiratory distress. EMS called. He presents on 15 L nonrebreather satting 85% in respiratory distress. He is awake eyes open with some purposeful movement, but not following commands. He is unable to give a history. Associated symptoms: Reports confusion and dyspnea; Deny vomiting Review of Systems 2 Const: Reports: fever(s) Resp: Reports: dyspnea and non-productive cough GI: Denies: vomiting Musc: Reports: neck pain (Chronic) Neuro: Reports: weakness in extremities and confusion PFSH ED 2 PFSH: Medical History BPH (benign prostatic hyperplasia) Parkinsons disease Atrial fibrillation Rate control HTN (hypertension) Diastolic dysfunction Surgical History S/P cervical spinal fusion S/P tonsillectomy and adenoidectomy S/P appendectomy S/P hemilaminotomy Foraminotomy Family History Mother , CHF age 66 CHF (congestive heart failure) Social History (Updated 03/16/23 @ 23:50 by Justin Santoyo MD) Smoking and tobacco/nicotine status: never used tobacco/nicotine Alcohol intake: never Substance/Drug Use: never Physical Exam 2 Const: GENERAL APPEARANCE: in distress, ill appearing and frail appearing HENMT: COMMON NORMALS: normocephalic, atraumatic and Normal external nose present HEAD & SCALP: normocephalic and atraumatic FACE & SINUS: face symmetric NOSE: Normal external nose present Eye: COMMON NORMALS: Equal, round and reactive pupils present and EOMs intact bilaterally PUPIL: Yes Equal, round and reactive pupils present Neck/C-Spine: GENERAL: Yes trachea midline and No anterior neck swelling Chest: CHEST: Yes Symmetrical chest wall rise Resp: EFFORT & INSPECTION: Yes respiratory distress and Yes labored A USCULTATION: diminished lung sounds Cardio: COMMON NORMALS: regular rhythm RATE: tachycardic RHYTHM: regular rhythm GI: COMMON NORMALS: Normal to inspection, nondistended, normoactive bowel sounds present and Soft to palpation PALPATION: Yes Soft to palpation Extremity: COMMON NORMALS: no pedal edema Neuro: [place] COMA SCALE: document GCS findings [place] coma scale eye opening: Spontaneous [place] coma scale verbal response: Sounds [place] coma scale motor response: Normal flexion [place] coma scale total score: 10 Procedures Central Line Placement Right IJ: Time Out Performed: No Patient Placed on Monitor/Pulse Ox: Yes MD Prep: mask, gown and gloves Central Line Prep: Chlorhexidine scrub Local Anesthetic: lidocaine 1% Amount of anesthesia used (mL): 3 Central Line Lumen Inserted: triple Post Procedure: sutured in place, good blood return, all ports aspirated, flushed, capped and sterile dressing applied Post Procedure X-Ray: tip of catheter in good position and no pneumothorax seen Patient Tolerated Procedure: no complications Complications: none Intubation Time out performed: No sedative: Etomidate Mg Given: 15 paralytic: Succinylcholine Mg Given: 150 Laryngoscope: fiber optic video scope ET Tube Size: 7.5 ET Tube Uncuffed: No Tube Secured Depth (cm): 24 Tube Secured Location: lips Tube Placement Confirmation: visualized tube passing through cords, equal breath sounds bilaterally and confirmation by capnometry Patient Tolerated Procedure: well and no complications Intubation Complications: none Course 2 Vital Signs: Vital signs: Vital Signs Temperature 100.3 F H 03/16/23 21:12 Pulse Rate 72 03/16/23 23:25 Respiratory Rate 18 03/16/23 23:25 Blood Pressure 116/64 03/16/23 23:25 Pulse Oximetry 98 03/16/23 23:25 Oxygen Delivery Me thod Mechanical Ventil ation 03/16/23 23:01 Oxygen Flow Rate 15 03/16/23 21:12 Fraction of Inspir ed Oxygen 80 03/16/23 23:01 MDM - General Adult Medical Decision Making Patient presents in respiratory distress with significant decrease in mentation. Distress was significant. He was hypertensive. He was significantly hypoxic. Due to significant respiratory distress and hypoxia with decreased mentation, elected to proceed with intubation. Intubation proceeded without complication. He has a history of neck fusion, so use videoscope. Central line placed. Patient is given a sepsis bolus, antibiotics started after blood cultures. Chest x-ray reveals left lower and midlung field pneumonia. ET tube is a bit high, but appropriate. Other tubes in place on chest x-ray. Head CT is pending. The patient does have a urinary tract infection with chronic indwelling catheter. Previous cultures indicate E. coli sensitive to some antibiotics. He has received vancomycin and Zosyn here. He is sedated with propofol and fentanyl. Lab Data 03/16/23 20:23 03/16/23 21:35 Radiology Impressions Chest X-Ray 03/16/23 21:15 IMPRESSION: 1. Endotracheal tube tip in place 3.8 cm above the barrie. 2. Right central venous catheter tip at the atrial caval junction. 3. Enteric tube tip extending below the diaphragm over the gastric bubble. 4. Emphysematous changes. 5. Left mid to lower lung field pneumonia. Head CT 03/16/23 21:15 IMPRESSION: Negative for intracranial hemorrhage or mass effect. Laboratory Results WBC 13.34 10^3/uL (3.29-11.43) H 03/16/23 20:23 RBC 5.25 10^6/uL (3.85-5.65) 03/16/23 20:23 Hgb 14.50 g/dL (11.27-16.99) 03/16/23 20: Hct 45.6 % (37-53) 03/16/23 20:23 MCV 86.9 fl (82-101) 03/16/23 20:23 MCH 27.6 pg (27-33) 03/16/23 20: MCHC 31.8 g/dL (30-55) 03/16/23 20: RDW 14.9 % (12.1-15.1) 03/16/23 20:23 Plt Count 187 10^3/cmm (157-399) 03/16/23 20: MPV 12.3 fL (7.4-10.4) H 03/16/23 20:23 Neut % (Auto) 87.4 % 03/16/23 20:23 Lymph % (Auto) 7.1 % 03/16/23 20:23 [place] % (Auto) 4.6 % 03/16/23 20: Eos % (Auto) 0.1 % 03/16/23 20:23 Baso % (Auto) 0.4 % 03/16/23 20:23 Neut # (Auto) 11.65 10^3/uL (1.8-7.7) H 03/16/23 20:23 Lymph # (Auto) 1.0 10^3/uL (0.8-4.8) 03/16/23 20:23 [place] # (Auto) 0.6 10^3/uL (0.2-0.9) 03/16/23 20: Eos # (Auto) 0.0 10^3/uL (0.0-0.8) 03/16/23 20:23 Baso # (Auto) 0.1 10^3/uL (0.0-0.1) 03/16/23 20: Nucleated RBC % (auto) 0 % 03/16/23 20: Nucleated RBCs # 0.0 /100WBC 03/16/23 20:23 PT 14.70 SECONDS (12.1-14.9) 03/16/23 21:35 INR 1.11 (0.8-1.2) 03/16/23 21:35 APTT 27.1 SECONDS (23.9-36.7) 03/16/23 21:35 D-Dimer 2.12 ug/mLFEU (0-0.59) H 03/16/23 20:23 Specimen Type Arterial 03/16/23 21:45 Sample Site Radial, left 03/16/23 21:45 ABG pH 7.32 (7.35-7.45) L 03/16/23 21:45 ABG pCO2 48.0 mmHg (35-45) H 03/16/23 21:45 ABG pO2 98.2 mmHg (80.0-100.0) 03/16/23 21:45 ABG PO2/FiO2 Ratio 0 03/16/23 21:45 ABG HCO3 24.9 mmol/L (22-26) 03/16/23 21:45 ABG Base Excess -1.7 mmol/L (-2.0-2.0) 03/16/23 21:45 Ruben Test Pos 03/16/23 21:45 Hematocrit 44.9 % (42-52) 03/16/23 21:45 O2 Delivery Device Vent 03/16/23 21:45 Mechanical Rate 14.0 03/16/23 21:45 FiO2 0.8 % 03/16/23 21:45 Tidal Volume 0.50 03/16/23 21:45 PEEP 8.0 cmH20 03/16/23 21:45 Chief Growth Officer ID Alewe 03/16/23 21:45 Sodium 138 mmol/L (136-145) 03/16/23 21:35 Potassium 4.2 mmol/L (3.5-5.1) 03/16/23 21:35 Chloride 99 mmol/L (98-107) 03/16/23 21:35 Carbon Dioxide 24 mmol/L (22-29) 03/16/23 21:35 Anion Gap 19.2 (5-19) H 03/16/23 21:35 BUN 13 mg/dL (8-23) 03/16/23 21:35 Creatinine 0.9 mg/dL (0.7-1.2) 03/16/23 21:35 GFR Calculation Not Reportable 03/16/23 21:35 Glucose 205 mg/dL (65-115) H 03/16/23 21:35 Calculated Osmolality 292 mOsm/kg (285-295) 03/16/23 21:35 Lactic Acid 2.7 mmol/L (0.5-2.2) H 03/16/23 22:47 Calcium 9.1 mg/dL (8.5-10.5) 03/16/23 21:35 Magnesium 1.9 mg/dL (1.7-2.3) 03/16/23 21:35 Total Bilirubin 1.2 mg/dL (0.15-1.2) 03/16/23 21:35 AST 14 U/L (0-40) 03/16/23 21:35 ALT 21 U/L (0-41) 03/16/23 21:35 Alkaline Phosphatase 81 U/L (40-130) 03/16/23 21:35 C-Reactive Protein 3.0 mg/L (0.0-4.9) 03/16/23 21:35 NT-Pro-B Natriuret Pep 910 pg/mL (0-450) H 03/16/23 21:35 Total Protein 7.0 g/dL (6.6-8.7) 03/16/23 21:35 Albumin 4.3 g/dL (3.5-5.2) 03/16/23 21:35 Globulin 2.7 g/dL (1.3-4.6) 03/16/23 21:35 Urine Color Brown (Yellow) A 03/16/23 21:15 Urine Appearance Cloudy (CLEAR) A 03/16/23 21:15 Urine pH 5 (5-7) 03/16/23 21:15 Ur Specific [place] 1.030 (1.005-1.030) 03/16/23 21:15 Urine Protein 2+ (Negative) H 03/16/23 21:15 Urine Glucose (UA) 2+ (Normal) H 03/16/23 21:15 Urine Ketones 2+ (Negative) H 03/16/23 21:15 Urine Blood 3+ (Negative) H 03/16/23 21:15 Urine Nitrate Positive (Negative) H 03/16/23 21:15 Urine Bilirubin 1+ (Negative) H 03/16/23 21:15 Urine Urobilinogen Norm mg/dL (Negative) 03/16/23 21:15 Ur Leukocyte Esterase 2+ (Negative) H 03/16/23 21:15 Urine RBC 15-25 /hpf (0-2) H 03/16/23 21:15 Urine WBC 55-80 /hpf (0-5) H 03/16/23 21:15 Ur Squamous Epith Cells 0-4 /hpf (0-5) H 03/16/23 21:15 Amorphous Sediment 1+ /hpf 03/16/23 21:15 Urine Bacteria 2+ /hpf (NONE) H 03/16/23 21:15 Hyaline Casts 0-4 /lpf H 03/16/23 21:15 Urine Mucus 1+ /hpf 03/16/23 21:15 Urine Yeast 1+ /hpf H 03/16/23 21:15 All radiology interpretation(s) finalized by discharge Critical Care Time 2 Critical Care Time: Critical Care Time: Yes Total Critical Care Time: 40 Attestation: This case had a high probability of a clinically significant, sudden, or life threatening deterioration of this patient's condition which required my full and direct attention, intervention and personal management. Time excludes any procedures performed such as an ablation or central line placement Discharge Plan Discharge Patient Disposition: Admitted As Inpatient Admit Provider: Justin Santoyo Clinical Impression: Pneumonia, Acute hypoxic respiratory failure, Sepsis, Urinary tract infection Condition: Stable Coding Level of Care Code ED Heel Slugger for Miguel Cote
[2023-03-16] MEDS: sodium chloride 0.9% 2,925.66 ML 2925.66 ML IV (22:51)
[2023-03-16] MEDS: vancomycin 1,250 MG/250 ML PIGGYBACK 250 MG IV (22:56)
[2023-03-16] MEDS: piperacillin-tazobactam 4.5 GM in sodium chloride 0.9% (plus) 50 ML IV (22:57)
--- NOTE | 2023-03-16 22:58 | P.HP_ITS ---
Providers/Chief Complaint 2 Admitting Physician: Justin Santoyo MD Primary Care Provider: Maxim Wang MD Chief Complaint: WEAKNESS History of Present Illness Naun Schneider is a 82 year old male with a past medical history significant for Parkinson's disease, atrial fibrillation, diastolic dysfunction, and hypertension who presents to the emergency department with respiratory distress with onset prior to arrival. Upon evaluation, patient is intubated and sedated on propofol and fentanyl. His spouse and son are bedside. They provide collateral information. Patient was in his usual state of health until about 2 days ago when he was acting more tired and possibly a little bit more confused. The symptoms are not uncommon with his Parkinson's disease. He then developed shortness of breath today. They report there were a birthday constitution party earlier today. Patient was brought in by EMS. Is reportedly in severe respiratory distress. Required intubation which was challenging per ED provider given his history of cervical fusions. Further workup revealed patient was septic from left-sided community-acquired pneumonia. He started on broad-spectrum antibiotics. Family denies prior intubations for respiratory failure. They deny prior known pulmonary disease. 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 He has been intubated before for various procedures. They report patient was actually quite healthy up until about May of 2022. He contracted COVID-19 while they were down in [place]. Spent about 5 months in between hospitals. His mentation is never returned to baseline since. His Parkinson's dementia now. Feeding tube was placed due to him failing repeat swallow studies. Swallow eventually has improved and they are not using his feeding tube other than her flushing it once daily. They plan to leave it for the winter to see how he did. He also has a chronic Moreau catheter after failing multiple voiding trials. He follows with a neurologist for many years out of the [facility]. Review of Systems 2 Narrative: Attempted to obtain a complete review of systems but was unable due to clinical status of intubation/sedated status. Medications/Allergies Home Medications Medication Instructions Recorded Confirmed Last Taken Type aspirin 325 mg tablet 325 mg PO DAILY 10/25/19 01/28/23 Unknown History calcium carbonate 600 mg calcium 600 mg PO DAILY 10/25/19 01/28/23 Unknown History (1,500 mg) tablet cholecalciferol (vitamin D3) 50 50 mcg PO DAILY 10/25/19 01/28/23 Unknown History mcg (2,000 unit) capsule coQ10 (ubiquinol) 200 mg capsule 200 mg PO DAILY 10/25/19 01/28/23 Unknown History furosemide 20 mg tablet 20 mg PO DAILY PRN edema #90 tabs 10/25/19 01/28/23 Unknown Rx multivitamin 1 tab PO DAILY 10/25/19 01/28/23 Unknown History omega-3 fatty acids 1,000 mg 1,000 mg PO DAILY 10/25/19 01/28/23 Unknown History capsule (Fish Oil Concentrate) paroxetine HCl 40 mg tablet 40 mg PO DAILY 10/25/19 01/28/23 Unknown History potassium chloride 10 mEq 10 meq PO DAILY PRN Take with 10/25/19 01/28/23 Unknown Rx tablet,extended release Lasix #90 tabs ropinirole 2 mg tablet 3 mg PO TID 10/25/19 01/28/23 Unknown History tamsulosin 0.4 mg capsule 0.4 mg PO DAILY 10/25/19 01/28/23 Unknown History carbidopa 25 mg-levodopa 100 mg 1 tab PO TID 04/26/20 01/28/23 Unknown History tablet rivastigmine tartrate 1.5 mg 1.5 mg PO BID 04/26/20 01/28/23 Unknown History capsule zinc 50 mg tablet 50 mg PO DAILY 04/26/20 01/28/23 Unknown History clonidine HCl 0.1 mg tablet 0.1 mg PO DIRECTED PRN 05/17/20 01/28/23 Unknown Rx hypertensive emergency #90 tabs famotidine 20 mg tablet 20 mg PO BID #60 tabs 09/27/20 01/28/23 Unknown Rx denosumab 60 mg/mL subcutaneous 60 mg SUBCUT .twice yearly 02/06/21 01/28/23 Unknown History syringe (Prolia) diltiazem HCl 60 mg tablet 60 mg PO DAILY PRN atrial 02/06/22 01/28/23 Unknown Rx (Cardizem) fibrillation #90 tabs amlodipine 2.5 mg tablet 2.5 mg PO BID #180 tabs 05/29/22 01/28/23 Unknown Rx Allergies Allergy/AdvReac Type Severity Reaction Status Date / Time Sulfa (Sulfonamide Allergy Unknown Unknown Verified 03/16/23 21:19 Antibiotics) PFSH Acute 2 PFSH: Medical History BPH (benign prostatic hyperplasia) Parkinsons disease Atrial fibrillation Rate control HTN (hypertension) Diastolic dysfunction Surgical History S/P cervical spinal fusion S/P tonsillectomy and adenoidectomy S/P appendectomy S/P hemilaminotomy Foraminotomy Family History Mother , CHF age 66 CHF (congestive heart failure) Social History Smoking and tobacco/nicotine status: never used tobacco/nicotine Alcohol intake: never Substance/Drug Use: never Vitals/I&O/Wt Last Vital Signs Temp 100.3 F H 03/16/23 21:12 Pulse 97 03/16/23 21:12 Resp 24 H 03/16/23 21:38 BP 185/90 03/16/23 21:12 Pulse Ox 90 03/16/23 21:12 O2 Del Method Non-Rebreather 03/16/23 21:12 O2 Flow Rate 15 03/16/23 21:12 FiO2 0.80 03/16/23 21:38 03/16/23 03/16/23 03/16/23 06:59 14:59 22:59 Intake Total 3.576 / 3.576 Balance 3.576 / 3.576 Weight last 48 hrs Weight 97.522 kg Physical Exam 2 Narrative: General: Patient is intubated and sedated. Febrile. Head: Normocephalic. Intubated. Neck: No JVD. Cardiovascular: RRR. No gallops. No murmurs. Trace lower extremity edema. Lungs: Breath sounds are coarse, left-sided rhonchi, no use of accessory muscles, no crackles or wheezes. Intubated. Skin: No jaundice. No rashes. Abdomen: Hypoactive bowel sounds, abdomen soft. Feeding tube present. Genito Urinary: Catheter Rectal: Rectal exam not performed since no symptoms indicated blood loss. Extremities: No cyanosis or clubbing. Musculoskeletal:No swollen or erythematous joints. Neurological: Intubated and sedated. No myoclonus. Data 03/16/23 20:23 03/16/23 21:35 A&P Assessment and plan (1) Sepsis: Source: Community-acquired pneumonia Endorgan damage: Respiratory failure Blood cultures x 2 Vanco and Zosyn Qualifiers: Acute respiratory failure type: with hypoxia Sepsis acute organ dysfunction status: with acute organ dysfunction Sepsis type: sepsis due to unspecified organism Severe sepsis acute organ dysfunction type: acute respiratory failure Severe sepsis shock status: without septic shock Qualified Code(s): A41.9 - Sepsis, unspecified organism; R65.20 - Severe sepsis without septic shock; J96.01 - Acute respiratory failure with hypoxia (2) Acute hypoxic respiratory failure: Intubated 03/16 Daily chest x-ray ABG Vent management Fentanyl for analgesia Propofol for sedation (3) Pneumonia: In the setting of history of silent aspiration Hold off on initiation of tube feeds tonight, monitor closely for development of shock Check inflammatory markers Bacterial antigens Broad-spectrum antibiotics Qualifiers: Pneumonia type: due to unspecified organism (4) Parkinsons disease: Continue home medications Anticipate may complicate extubation Qualifiers: Dyskinesia presence: unspecified whether dyskinesia Fluctuating manifestations: unspecified whether manifestations fluctuate Qualified Code(s): G20.A1 - Parkinson's disease without dyskinesia, without mention of fluctuations (5) Urinary tract infection: Suspect colonization On antibiotics which will cover UTIs Follow cultures Qualifiers: Encounter type: initial encounter Indwelling urinary catheter type: i ndwelling urethral catheter Urinary tract infection type: catheter-associated UTI Qualified Code(s): T83.511A - Infection and inflammatory reaction due to indwelling urethral catheter, initial encounter; N39.0 - Urinary tract infection, site not specified (6) Atrial fibrillation: Does not appear to be on anticoagulation Monitor blood pressure closely Respiratory status increases risk for RVR (7) Diastolic dysfunction: Daily assessments of volume Strict I's and O's Daily weights (8) HTN (hypertension): Blood pressure soft, likely multifactorial Hold home medications Qualifiers: Hypertension type: essential hypertension Qualified Code(s): I10 - Essential (primary) hypertension Plan DVT prophylaxis: Lovenox GI prophylaxis: PPI Attestations 2 Medical Necessity Statement*: Patient presents in respiratory distress requiring intubation mechanical ventilation secondary to left-sided community-acquired pneumonia with expected hospitalization to 2 midnights. Critical Care Time: The high probability of a clinically significant, sudden or life threatening deterioration of the patient's respiratory system(s) required my full and direct attention, intervention and personal management. The critical care time is as shown. This time is in addition to time spent performing any reported procedures but includes the following: [x] Data and vital sign review and interpretation [x] Patient assessment, examination and intervention [x] Documentation [x] Medication orders and management Critical Care Time (min): 45 Coding Level of Care Code Acute Code for Chg Fwd Diagnoses Sepsis with acute hypoxic respiratory failure without septic shock, due to unspecified organism A41.9; R65.20; J96.01 Acute respiratory failure type: with hypoxia Sepsis acute organ dysfunction status: with acute organ dysfunction Sepsis type: sepsis due to unspecified organism Severe sepsis acute organ dysfunction type: acute respiratory failure Severe sepsis shock status: without septic shock Acute hypoxic respiratory failure J96.01 Pneumonia J18.9 Pneumonia type: due to unspecified organism Parkinson's disease, unspecified whether dyskinesia present, unspecified whether manifestations fluctuate G20.A1 Dyskinesia presence: unspecified whether dyskinesia Fluctuating manifestations: unspecified whether manifestations fluctuate Urinary tract infection associated with indwelling urethral catheter, initial encounter T83.511A; N39.0 Encounter type: initial encounter Indwelling urinary catheter type: indwelling urethral catheter Urinary tract infection type: catheter-associated UTI Atrial fibrillation I48.91 Diastolic dysfunction I51.89 Essential hypertension I10 Hypertension type: essential hypertension
[2023-03-16 23:21] LABS: D Dimer 2.12 ug/mLFEU (0-0.59)
[2023-03-16 23:24] LABS: Lactic Sepsis W/Reflex 2.7 mmol/L (0.5-2.2)
[2023-03-17] VITALS (125 sets, daily range): BP systolic 75–189; BP diastolic 45–105; PULSE 56–120; RESP 13–26; TEMP 36.7–37.2; O2SAT 94–100; BMI 25.6
--- NOTE | 2023-03-17 00:17 | CTR_ITS ---
PROCEDURE INFORMATION: Exam: CTA Chest With Contrast Exam date and time: 03/17/2023 4:13 AM Age: 82 years old Clinical indication: Abnormal findings; Abnormal diagnostic tests; Elevated d-dimer; Shortness of breath; Prior surgery; Surgery date: 6+ months; Surgery type: Cervical fusion. Humeral fixation; Patient HX: SOB with hypoxia. Dimer 2.1. Intubated with RT central line. ; Additional info: SOB, hypoxia, increased d dimer TECHNIQUE: Imaging protocol: Computed tomographic angiography of the chest with contrast. Exam focused on the arteries. 3D rendering (Not supervised by radiologist): MIP and/or 3D reconstructed images were created by the technologist. Radiation optimization: All CT scans at this facility use at least one of these dose optimization techniques: automated exposure control; mA and/or kV adjustment per patient size (includes targeted exams where dose is matched to clinical indication); or iterative reconstruction. Contrast material: OMNI 350; Contrast volume: 46 ml; Contrast route: INTRAVENOUS (IV); COMPARISON: CR (CHEST, ) 03/16/2023 9:36 PM RADIATION DOSE METRICS: Total DLP (mGy-cm): 556.05 FINDINGS: Tubes, catheters and devices: Right IJ line, NGT and ETT in place. Pulmonary arteries: No evidence of main, lobar, or segmental occlusive PE. The heart is large. Aorta: Unremarkable. No aortic aneurysm. No aortic dissection. Lungs: Mild COPD. Mild areas of bilateral mid to lower lung atelectasis, edema or developing airspace disease. Rpsi-[id number]-rryy-right areas of bibasilar atelectasis or developing pneumonia. Few lung nodular opacities are probably airspace disease. No definite lung mass. Pleural spaces: No pneumothorax or effusion. Heart: The heart is large. No pericardial effusion. Lymph nodes: No bulky hilar or mediastinal lymphadenopathy noted. Stomach and bowel: The colon is rather fecal filled. Bones/joints: Right humeral ORIF. Insy-xz-aughlshm spine DJD. Soft tissues: Unremarkable. CT/CT angio chest PE protcl [id number] IMPRESSION: 1. No evidence of PE. 2. Large heart with scattered hazy areas of atelectasis, edema or developing pneumonia with lcqz-ruebsbv-hiir-right areas of bibasilar consolidation. 3. Lines and tubes in place as discussed. 4. Other findings above. Recommend three-month follow-up.
[2023-03-17 00:48] LABS: Reflex Lactate Order REFLEX LACTIC ORDERD
[2023-03-17 00:49] LABS: Adenovirus Not Detected (NOT DETECT); Chlamydia Pneumoniae Not Detected (NOT DETECT); Coronavirus 229E,HKU1,NL63,OC4 Not Detected (NOT DETECT); Human Metapneumovirus Not Detected (NOT DETECT); Human Rhinovirus/Enterovirus Not Detected (NOT DETECT); Influenza A Not Detected (NOT DETECT); Influenza A H1 Not Detected (NOT DETECT); Influenza A H1-2009 Not Detected (NOT DETECT); Influenza A H3 Not Detected (NOT DETECT); Influenza B Not Detected (NOT DETECT); Mycoplasma Pneumoniae Not Detected (NOT DETECT); Parainfluenza Virus Type 1 Not Detected (NOT DETECT); Parainfluenza Virus Type 2 Not Detected (NOT DETECT); Parainfluenza Virus Type 3 Not Detected (NOT DETECT); Parainfluenza Virus Type 4 Not Detected (NOT DETECT); Respiratory Syncytial Virus A Not Detected (NOT DETECT); Respiratory Syncytial Virus B Not Detected (NOT DETECT); SARS-COV-2 Not Detected (NOT DETECT)
[2023-03-17] MEDS: enoxaparin 40 mg/0.4 mL Syringe SUBCUT (01:34)
[2023-03-17] MEDS: pantoprazole 40 mg SDV IVP (01:36)
--- NOTE | 2023-03-17 01:40 | PC.NURSE ---
Pt's stated the pt's decubitus ulcer on his bottom has been being managed by Dr. Wang. Pt's stated the wound is being taken care of by a home health nurse. Pt's stated he was recently placed on Triad paste that has been helping with his wound healing. Pt's wound is normally covered with heart shaped coccyx bandage but today she was unable to place due to his condition.
[2023-03-17 02:35] LABS: Basophils % 0.2 %; Hematocrit 39.3 % (37-53); Lymphocytes # 0.6 10^3/uL (0.8-4.8); Lymphocytes % 4.3 %; Mean Corpuscular HGB Conc 31.6 g/dL (30-55); Mean Corpuscular Hemoglobin 27.7 pg (27-33); Mean Corpuscular Volume 87.9 fl (82-101); Mean Platelet Volume 11.3 fL (7.4-10.4); Monocytes # 0.8 10^3/uL (0.2-0.9); Monocytes % 5.9 %; Neutrophils # 11.94 10^3/uL (1.8-7.7); Neutrophils % 89.3 %; Nucleated Red Blood Cells % 0 %; Platelet Count 166 10^3/cmm (157-399); Red Blood Count 4.47 10^6/uL (3.85-5.65); Red Cell Distribution Width 14.9 % (12.1-15.1); White Blood Count 13.37 10^3/uL (3.29-11.43)
[2023-03-17 02:56] LABS: Lactic Acid level (Lactate) 2.3 mmol/L (0.5-2.2)
[2023-03-17 02:58] LABS: Albumin Level 3.6 g/dL (3.5-5.2); Alkaline Phosphatase 70 U/L (40-130); Anion Gap 16.7 (5-19); Blood Urea Nitrogen 10 mg/dL (8-23); Calcium 7.9 mg/dL (8.5-10.5); Carbon Dioxide 22 mmol/L (22-29); Chloride 105 mmol/L (98-107); Globulin 2.1 g/dL (1.3-4.6); Glucose 164 mg/dL (65-115); Magnesium 1.8 mg/dL (1.7-2.3); Osmolality Calculated 293 mOsm/kg (285-295); Phosphorus 2.5 mg/dL (2.5-4.5); Potassium 3.7 mmol/L (3.5-5.1); Sodium 140 mmol/L (136-145); Total Bilirubin 1.7 mg/dL (0.15-1.2); Total Protein 5.7 g/dL (6.6-8.7)
[2023-03-17 03:02] LABS: Procalcitonin 3.48 ng/mL (0-0.5)
[2023-03-17 03:20] LABS: Alanine Aminotransferase 18 U/L (0-41); Aspartate Amino Transferase 10 U/L (0-40)
[2023-03-17] MEDS: sodium chloride 0.9% 250 ML 999 ML IV (03:41)
[2023-03-17] MEDS: sodium chloride 0.9% 1,000 ML 125 ML IV (03:43)
[2023-03-17] MEDS: iohexol 350 mg/mL 500 mL Btl (per mL) IV (04:19)
[2023-03-17 05:52] LABS: ABG PH Result 7.32 (7.35-7.45); Arterial Blood Gas Hematocrit 39.1 % (42-52); Base Excess ABG -3.2 mmol/L (-2.0-2.0); Blood Gas Allen Test Pos; Blood Gas Sample Type Arterial; HCO3 ABG 23.1 mmol/L (22-26)
[2023-03-17 05:53] LABS: Blood Gas Operator Identificat JB; Blood Gas Sample Site Radial, right; Oxygen Device VENT; PO2 FiO2 Ratio Arterial Blood 0
--- NOTE | 2023-03-17 06:00 | XRR_ITS ---
PROCEDURE INFORMATION: Exam: XR Chest Exam date and time: 03/17/2023 7:08 AM Age: 82 years old Clinical indication: Condition or disease; Lung condition and disease; Respiratory failure; Status not specified; Additional info: Evaluate respiratory failure TECHNIQUE: Imaging protocol: Radiologic exam of the chest. Views: 1 view. COMPARISON: CT angio chest PE protcl [id number] 03/17/2023 4:13 AM FINDINGS: Lungs: Stable left lower lobe pneumonia. Pleural spaces: Unremarkable. No pleural effusion. No pneumothorax. Heart/Mediastinum: No change in the heart or mediastinum. Bones/joints: Unremarkable. Other findings: Unchanged life support lines. XR/XR chest 1V portable [id number] IMPRESSION: No significant change.
[2023-03-17] MEDS: piperacillin-tazobactam 3.375 GM in sodium chloride 0.9% (plus) 50 ML IV ×3 (06:13→22:09)
[2023-03-17] MEDS: norepinephrine 4 MG/250 ML BAG 7.5 MG IV (06:52)
--- NOTE | 2023-03-17 07:46 | US_ITS ---
WS: [id number] ULTRASOUND RENAL TECHNIQUE: Ultrasound examination of both kidneys. CLINICAL INFORMATION: UTI, sepsis COMPARISON: None. FINDINGS: Technically limited examination. RIGHT: Right kidney is normal in size and appearance. Echogenicity: Normal. Cortical thickness: cm; Normal. Hydronephrosis: None. Perinephric fluid: None. Right kidney measures: 10.8 cm x 6.1 cm x 4.7 cm. LEFT: Left kidney is normal in size and appearance. Echogenicity: Normal. Cortical thickness: cm; Normal. Hydronephrosis: None. Perinephric fluid: None. Left kidney measures: 12.5 cm x 5.7 cm x 6.0 cm. Normal visualized aorta. Moreau catheter. IMPRESSION: 1. Normal renal ultrasound. 2. Moreau catheter.
--- NOTE | 2023-03-17 07:46 | USCV_ITS ---
Naun Schneider Age: 82 Gender: M : 1940 Exam Date: 03/17/2023 08:26 Ordering Phys: Trav Leavitt MD Technologist: Dereck Cuba Exam Location: [facility] [place] Indication: septis ? ef BP: 74 / 54 HR: 61 Rhythm: Sinus Technical Quality: Adequate MEASUREMENTS (Male / Female) Normal Values 2D ECHO LV Diastolic Diameter PLAX 3.6 cm 4.2 - 5.9 / 3.9 - 5.3 cm LV Systolic Diameter PLAX 2.2 cm IVS Diastolic Thickness 1.0 cm 0.6 - 1.0 / 0.6 - 0.9 cm IVS Systolic Thickness 1.5 cm LVPW Diastolic Thickness 0.9 cm 0.6 - 1.0 / 0.6 - 0.9 cm LVPW Systolic Thickness 1.5 cm LVOT Diameter 2.1 cm LV Ejection Fraction 2D Teich 70.8 % LV Ejection Fraction MOD 2C 61.6 % LV Ejection Fraction 2C AL 61.8 % LA Diameter 3.1 cm M-MODE Aortic Annulus Diameter 3.4 cm LA Ao Ratio MM 0.7 MV E Point Septal Separation 0.9 cm DOPPLER AV Peak Velocity 171.0 cm/s LVOT Peak Velocity 97.0 cm/s AV Area Cont Eq vti 2.4 cm squared AV Area Cont Eq pk 2.0 cm squared MV Area PHT 2.5 cm squared Mitral E to A Ratio 0.7 MV E' Velocity 39.5 cm/s Mitral E to MV E' Ratio 13.5 Mitral E to LV E' Lateral Ratio 12.6 Mitral E to LV E' Septal Ratio 14.6 TR Peak Velocity 254.3 cm/s TR Peak Gradient 25.9 mmHg Right Atrial Pressure 5.0 mmHg Pulmonary Artery Systolic Pressu 30.9 mmHg RV Acceleration Time 0.1 s FINDINGS Left Ventricle Normal left ventricular size and systolic function, EF 66 %. Mild left ventricular hypertrophy. No regional wall motion abnormalities. Grade I/IV diastolic dysfunction (abnormal relaxation filling pattern), normal to mildly elevated filling pressures. Right Ventricle The right ventricle is normal in size and function. Right Atrium The right atrium is normal in size. Left Atrium The left atrium is normal in size. Mitral Valve Trace mitral valve regurgitation. Aortic Valve Thickened aortic valve. Tricuspid Valve Trace tricuspid valve regurgitation. Pulmonic Valve No gross abnormalities noted Pericardium Normal pericardium without effusion. Aorta Normal ascending aorta dimension. IVC The inferior vena cava appears normal. CONCLUSIONS Normal left ventricular size and systolic function, EF 66 %. Mild left ventricular hypertrophy. No regional wall motion abnormalities. Grade I/IV diastolic dysfunction (abnormal relaxation filling pattern), normal to mildly elevated filling pressures. Thickened aortic valve. Trace of mitral and tricuspid regurgitation Estimated PA pressure of 30 mmHg There is no pericardial effusion. There are no intracardiac masses. Compared to the study from 11/25/2013, there may not be a significant change Dr Terrance Davila MD FACC (Electronically Signed) Final Date: 17 March 2023 15:24 S
--- NOTE | 2023-03-17 07:46 | ECG_ITS ---
[facility] Test Date: 2023-03-17 Pat Name: Naun Schneider Department: Room: ICU11 Gender: Male Support Director: : 1940 Requested By: Trav Posey Order Number: [id number] Joaquin MD: Ernesto Gray M.D. Measurements Intervals [place] Rate: 59 P: 29 [place]: 166 QRS: 39 QRSD: 105 T: 48 QT: 422 QTc: 419 Interpretive Statements SINUS BRADYCARDIA POSSIBLE RIGHT VENTRICULAR CONDUCTION DELAY [RSR (QR) IN V1/V2] SEPTAL MYOCARDIAL INFARCTION , OF INDETERMINATE AGE [40+ ms Q WAVE IN V1/V2] Compared to ECG 04/30/2017 10:18:44 Myocardial infarct finding now present Electronically Signed On 03-17-2023 11:23:30 BOW MAKER MACHINE TENDER by Ernesto Gray M.D. [id number]
[2023-03-17] MEDS: ipratropium-albuterol 3 mL Neb INHALATION ×4 (08:02→20:34)
[2023-03-17 08:39] LABS: Troponin T (5th) Once 21 ng/L (0-15)
[2023-03-17 08:44] LABS: Estmated Average Glucose 100; Hemoglobin A1C 5.1 % (4.0-6.0)
[2023-03-17 08:45] LABS: Thyroid Stimulating Hormone 1.52 uIU/mL (0.27-4.20)
[2023-03-17] MEDS: aspirin 81 mg Chew Tablet PEG-TUBE (09:30)
[2023-03-17] MEDS: ropinirole 2 mg Tablet 3 MG PEG-TUBE ×3 (09:30→21:16)
[2023-03-17] MEDS: carbidopa-levodopa 25-100mg Tablet 1 EACH PEG-TUBE ×3 (09:30→21:16)
[2023-03-17] MEDS: vancomycin 1,250 MG/250 ML PIGGYBACK 250 MG IV (11:51)
--- NOTE | 2023-03-17 12:01 | P.PN_ITS ---
Subjective 2 Subjective: History and physical reviewed. Patient intubated and sedated. at bedside. Corollary history obtained from her. She reports that he had increasing confusion prior to the point of shortness of breath and ultimately intubation in the ER. Medications: Reviewed: Yes Vitals/I&O/Wt Last Vital Signs Temp 98.0 F 03/17/23 09:15 Pulse 68 03/17/23 10:15 Resp 17 03/17/23 10:34 BP 117/62 03/17/23 10:15 Pulse Ox 97 03/17/23 10:34 O2 Del Method Mechanical Ventilation 03/17/23 09:15 O2 Flow Rate 15 03/16/23 21:12 FiO2 40 03/17/23 10:34 03/16/23 03/17/23 03/17/23 22:59 06:59 14:59 Intake Total 6.891 / 6.891 3679.478 / 3686.369 50 / 50 Output Total 350 / 350 Balance 6.891 / 6.891 3329.478 / 3336.369 50 / 50 Weight last 48 hrs Weight 95.617 kg Weight 95.481 kg Weight 97.522 kg Physical Exam 2 Narrative: General exam is a white male, intubated and sedated HEENT: Endotracheal and oropharyngeal tube noted Neck is supple Cardiovascular regular rate and rhythm, no murmur Lungs clear Abdomen is soft, PEG tube noted. exam demonstrates Moreau Extremities trace edema Skin no rash but back not examined. Urinary Catheter Management: Moreau: Cath Placed During This Visit: yes Reason for Continuing Indwelling Catheter: Accurate Measurement of Urinary Output in Critically Ill Patients Urinary Catheter Date of Insertion: 03/17/23 Urinary Catheter Time of Insertion: 06:00 Data 03/17/23 02:19 03/17/23 02:19 Micro: Microbiology 03/17/23 05:00 Gram Stain - Final Sputum - Endotracheal Tube Aspirate A&P Assessment and plan (1) Sepsis: Patient presents with sepsis He has received an appropriate sepsis bolus Continue IV fluids at maintenance currently. Blood cultures were obtained Qualifiers: Acute respiratory failure type: with hypoxia Sepsis acute organ dysfunction status: with acute organ dysfunction Sepsis type: sepsis due to unspecified organism Severe sepsis acute organ dysfunction type: acute respiratory failure Severe sepsis shock status: without septic shock Qualified Code(s): A41.9 - Sepsis, unspecified organism; R65.20 - Severe sepsis without septic shock; J96.01 - Acute respiratory failure with hypoxia (2) Acute hypoxic respiratory failure: And abated in the emergency department Correct to position on chest x-ray which I reviewed Fentanyl, propofol for sedation Wean ventilator as tolerated. ABGs and settings reviewed. Chest x-ray in the morning (3) Pneumonia: IV antibiotics consisting of Zosyn, vancomycin Sputum culture Blood culture Qualifiers: Pneumonia type: due to unspecified organism (4) Parkinsons disease: Restart his home medications Qualifiers: Dyskinesia presence: unspecified whether dyskinesia Fluctuating manifestations: unspecified whether manifestations fluctuate Qualified Code(s): G20.A1 - Parkinson's disease without dyskinesia, without mention of fluctuations (5) Hypotension: Currently on norepinephrine, adjust as tolerated. Likely secondary to sepsis as well as sedative medicines Check EKG, echo, troponin (6) Urinary tract infection: Concern of UTI Await urine culture IV antibiotics of Zosyn should cover this Qualifiers: Encounter type: initial encounter Indwelling urinary catheter type: i ndwelling urethral catheter Urinary tract infection type: catheter-associated UTI Qualified Code(s): T83.511A - Infection and inflammatory reaction due to indwelling urethral catheter, initial encounter; N39.0 - Urinary tract infection, site not specified Plan Underlying dementia Full code currently Lovenox for DVT prophylaxis Protonix for GI prophylaxis Attestations 2 Medical Necessity Statement*: Needs continued hospitalization secondary to respiratory failure requiring mechanical ventilation Critical Care Time: The high probability of a clinically significant, sudden or life threatening deterioration of the patient's [pulmonary, neurologic, infectious disease] s ystem(s) required my full and direct attention, intervention and personal management. The critical care time is as shown. This time is in addition to time spent performing any reported procedures but includes the following: [x] Data and vital sign review and interpretation [x] Patient assessment, examination and intervention [x] Documentation [x] Medication orders and management Critical Care Time (min): 35 Coding Level of Care Code Critical Care >/= 30 minutes Critical care time (in minutes): 35 The high probability of a clinically significant, sudden or life threatening deterioration, as referenced in this documentation, required my full and direct attention, intervention and personal management. The critical care time shown is in addition to time spent performing any reported separately billable procedures and includes the following: [x] Data and vital sign review and interpretation [x ] Patient assessment, examination and intervention [x] Medication orders and management [x] Patient/Family updates as able [x] Care Coordination and Documentation. Diagnoses Sepsis with acute hypoxic respiratory failure without septic shock, due to unspecified organism A41.9; R65.20; J96.01 Acute respiratory failure type: with hypoxia Sepsis acute organ dysfunction status: with acute organ dysfunction Sepsis type: sepsis due to unspecified organism Severe sepsis acute organ dysfunction type: acute respiratory failure Severe sepsis shock status: without septic shock Acute hypoxic respiratory failure J96.01 Pneumonia J18.9 Pneumonia type: due to unspecified organism Parkinson's disease, unspecified whether dyskinesia present, unspecified whether manifestations fluctuate G20.A1 Dyskinesia presence: unspecified whether dyskinesia Fluctuating manifestations: unspecified whether manifestations fluctuate Hypotension I95.9 Urinary tract infection associated with indwelling urethral catheter, initial encounter T83.511A; N39.0 Encounter type: initial encounter Indwelling urinary catheter type: indwelling urethral catheter Urinary tract infection type: catheter-associated UTI
[2023-03-17] MEDS: sodium chloride 0.9% 1,000 ML 50 ML IV (12:52)
--- NOTE | 2023-03-17 12:59 | PC.PHAR ---
STATES PT TAKES 81 MG ASA NOW AND FISH OIL HAS BEEN DISCONTINUED. 03/17/23
--- NOTE | 2023-03-17 14:05 | PC.NUTR ---
Addendum entered and electronically signed by Archana Quijano 03/17/23 14:10: FWF 150 mls Q6H (not Q4H) or per MD discretion Original Note: PEG TF consult received. Spoke with on the phone who said that they haven't really used the PEG tube since July and when they did it was an occasional Boost or Ensure. If medically necessary/appropriate, recommend Jevity 1.2 beginning at 15 mls/hr and increasing 20 mls Q8H as tolerated until goal rate of 55 mls/hr is reached with 150 mls FWF Q4H or per MD discretion. Details in RD assessment.
[2023-03-17] MEDS: fentaNYL 1,000 MCG/100 ML BAG 5 MCG IV (15:25)
[2023-03-17] MEDS: propofol 1,000 MG/100 ML INJ 8.78 MG IV (15:31)
[2023-03-17] MEDS: zinc oxide oint 30 gm 1 APPLIC TOPICAL (19:11)
[2023-03-17] MEDS: PARoxetine 20 mg Tablet 40 MG PO (21:16)
[2023-03-18] VITALS (95 sets, daily range): BP systolic 85–158; BP diastolic 49–74; PULSE 57–77; RESP 16–18; TEMP 36.8–37.6; O2SAT 95–100; BMI 26.7
[2023-03-18] MEDS: pantoprazole 40 mg SDV IVP (00:34)
[2023-03-18] MEDS: enoxaparin 40 mg/0.4 mL Syringe SUBCUT (00:34)
[2023-03-18] MEDS: vancomycin 1,250 MG/250 ML PIGGYBACK 250 MG IV ×3 (00:39→23:58)
[2023-03-18] MEDS: ipratropium-albuterol 3 mL Neb INHALATION ×7 (00:44→23:37)
[2023-03-18 03:46] LABS: Basophils % 0.4 %; Eosinophils # 0.3 10^3/uL (0.0-0.8); Hematocrit 34.6 % (37-53); Lymphocytes # 1.1 10^3/uL (0.8-4.8); Lymphocytes % 11.8 %; Mean Corpuscular HGB Conc 31.2 g/dL (30-55); Mean Corpuscular Hemoglobin 27.8 pg (27-33); Mean Corpuscular Volume 89.2 fl (82-101); Mean Platelet Volume 11.4 fL (7.4-10.4); Monocytes # 0.5 10^3/uL (0.2-0.9); Monocytes % 5.5 %; Neutrophils # 7.53 10^3/uL (1.8-7.7); Nucleated Red Blood Cells % 0 %; Platelet Count 136 10^3/cmm (157-399); Red Blood Count 3.88 10^6/uL (3.85-5.65); Red Cell Distribution Width 15.4 % (12.1-15.1); White Blood Count 9.53 10^3/uL (3.29-11.43)
[2023-03-18] MEDS: propofol 1,000 MG/100 ML INJ 8.78 MG IV ×2 (03:46→13:38)
[2023-03-18] MEDS: chlorhexidine gluconate 4% Btl 118 mL 1 APPLIC TOPICAL (03:48)
[2023-03-18 04:08] LABS: Alanine Aminotransferase < 5 U/L (0-41); Albumin Level 3.3 g/dL (3.5-5.2); Alkaline Phosphatase 79 U/L (40-130); Anion Gap 10.5 (5-19); Aspartate Amino Transferase 12 U/L (0-40); Blood Urea Nitrogen 18 mg/dL (8-23); Calcium 7.5 mg/dL (8.5-10.5); Carbon Dioxide 26 mmol/L (22-29); Chloride 106 mmol/L (98-107); Globulin 2.3 g/dL (1.3-4.6); Glucose 102 mg/dL (65-115); Osmolality Calculated 290 mOsm/kg (285-295); Potassium 3.5 mmol/L (3.5-5.1); Sodium 139 mmol/L (136-145); Total Bilirubin 0.5 mg/dL (0.15-1.2); Total Protein 5.6 g/dL (6.6-8.7)
[2023-03-18 04:09] LABS: ABG PCO2 48.8 mmHg (35-45); ABG PH Result 7.34 (7.35-7.45); Arterial Blood Gas Hematocrit 35.2 % (42-52); Base Excess ABG 0.3 mmol/L (-2.0-2.0); Blood Gas Allen Test Pos; Blood Gas Sample Site Radial, left; Blood Gas Sample Type Arterial; HCO3 ABG 26.5 mmol/L (22-26); Oxygen Device VENT; PO2 ABG 98.2 mmHg (80.0-100.0); PO2 FiO2 Ratio Arterial Blood 0
[2023-03-18] MEDS: zinc oxide oint 30 gm 1 APPLIC TOPICAL (05:40)
[2023-03-18] MEDS: piperacillin-tazobactam 3.375 GM in sodium chloride 0.9% (plus) 50 ML IV ×3 (06:49→23:58)
--- NOTE | 2023-03-18 07:00 | XR_ITS ---
WS: [id number] Exam: XR chest 1V portable [id number] Date/Time of Exam: 03/18/2023 6:59 AM Reason For Exam: resp failure Comparison 03/17/2023. COMPARISON: 1523. LEFT lower lobe consolidating pneumonia shows little change. Remaining lung martinez are clear. Cardiom ediastinal silhouette is unremarkable. No pleural effusion. RIGHT IJ catheter ends at the cavoatrial junction. NG tube extends into the stomach. ET tube ends about 6 cm above the barrie in satisfactory position. Hardware partially visualized in the upper RIGHT humerus. Mild DJD of the thoracic spine. IMPRESSION: 1. Unchanged left-sided pneumonia since previous study. 2. Central line, NG tube and ET tube all in satisfactory location.
[2023-03-18] MEDS: ropinirole 2 mg Tablet 3 MG PEG-TUBE ×3 (08:12→20:44)
[2023-03-18] MEDS: carbidopa-levodopa 25-100mg Tablet 1 EACH PEG-TUBE ×3 (08:12→20:44)
[2023-03-18] MEDS: aspirin 81 mg Chew Tablet PEG-TUBE (08:12)
[2023-03-18] MEDS: fentaNYL 1,000 MCG/100 ML BAG 2.5 MCG IV (08:27)
--- NOTE | 2023-03-18 09:11 | P.PN_ITS ---
Documented by User: MARV Saels STDTHOMAS 03/18/23 09:28 Subjective 2 Subjective: Patient intubated and sedated. Plans to continue to wean down ventilator requirements as tolerated with possible extubation tomorrow AM. Medications: Reviewed: Yes Vitals/I&O/Wt Last Vital Signs Temp 99.6 F 03/18/23 05:15 Pulse 60 03/18/23 07:35 Resp 16 03/18/23 07:35 BP 119/59 03/18/23 06:00 Pulse Ox 98 03/18/23 07:35 O2 Del Method Mechanical Ventilation 03/18/23 07:35 O2 Flow Rate 15 03/16/23 21:12 FiO2 35 03/18/23 07:35 03/17/23 03/18/23 03/18/23 22:59 06:59 14:59 Intake Total 326.769 / 666.852 521.75 / 1171.092 5241.292 / 1009.292 Output Total 200 / 200 525 / 725 Balance 126.769 / 466.852 -3.25 / 964.840 6984.292 / 1009.292 Weight last 48 hrs Weight 219 lb 12.8 oz Weight 210 lb 12.8 oz Weight 210 lb 8 oz Weight 215 lb Physical Exam 2 Narrative: General exam is a white male, intubated and sedated HEENT: Endotracheal and oropharyngeal tube noted Neck is supple, no lymphadenopathy, Cardiovascular regular rate and rhythm, no murmur Lungs sounds noted to be coarse on right anterior, left anterior noted to be diminished range. Abdomen is soft, PEG tube noted. exam demonstrates Moreau Extremities noted to have 2+ pitting edema bilateral lower extremities. Skin no rash but back not examined. Urinary Catheter Management: Moreau: Cath Placed During This Visit: yes Reason for Continuing Indwelling Catheter: Accurate Measurement of Urinary Output in Critically Ill Patients Urinary Catheter Date of Insertion: 03/17/23 Urinary Catheter Time of Insertion: 06:00 Data 03/18/23 03:27 03/18/23 03:27 Micro: Microbiology 03/16/23 21:15 Urine Culture - Preliminary Urine,Clean Catch Gram Negative Rods 03/17/23 05:00 Gram Stain - Final Sputum - Endotracheal Tube Aspirate A&P Assessment and plan (1) Sepsis: Patient presents with sepsis Received an appropriate sepsis bolus on 03/17/23. Discontinue IV fluids. Blood cultures were obtained, pending. Qualifiers: Acute respiratory failure type: with hypoxia Sepsis acute organ dysfunction status: with acute organ dysfunction Sepsis type: sepsis due to unspecified organism Severe sepsis acute organ dysfunction type: acute respiratory failure Severe sepsis shock status: without septic shock Qualified Code(s): A41.9 - Sepsis, unspecified organism; R65.20 - Severe sepsis without septic shock; J96.01 - Acute respiratory failure with hypoxia (2) Acute hypoxic respiratory failure: Patient was intubated in the emergency department 03/17/23. Correct to position on chest x-ray which I reviewed Continue Fentanyl, propofol for sedation Wean ventilator as tolerated. ABGs and settings reviewed. Chest x-ray in the morning (3) Pneumonia: Continue IV antibiotics consisting of Zosyn, vancomycin Sputum culture, pending. Blood culture, pending. Qualifiers: Pneumonia type: due to unspecified organism (4) Parkinsons disease: Restart his home medications Qualifiers: Dyskinesia presence: unspecified whether dyskinesia Fluctuating manifestations: unspecified whether manifestations fluctuate Qualified Code(s): G20.A1 - Parkinson's disease without dyskinesia, without mention of fluctuations (5) Hypotension: Norepinephrine paused at 2348 on 03/17/23, adjust as tolerated. Likely secondary to sepsis as well as sedative medicines Tropoin Echo on 03/17/23 demonstrated a normal EF of 66%. EKG demonstrated sinus bradycardia with a HR of 59.1. (6) Urinary tract infection: Concern of UTI Await urine culture IV antibiotics of Zosyn should cover this Qualifiers: Encounter type: initial encounter Indwelling urinary catheter type: i ndwelling urethral catheter Urinary tract infection type: catheter-associated UTI Qualified Code(s): T83.511A - Infection and inflammatory reaction due to indwelling urethral catheter, initial encounter; N39.0 - Urinary tract infection, site not specified Plan Underlying dementia Full code currently Lovenox for DVT prophylaxis Protonix for GI prophylaxis Coding Level of Care Code Critical Care >/= 30 minutes Diagnoses Sepsis with acute hypoxic respiratory failure without septic shock, due to unspecified organism A41.9; R65.20; J96.01 Acute respiratory failure type: with hypoxia Sepsis acute organ dysfunction status: with acute organ dysfunction Sepsis type: sepsis due to unspecified organism Severe sepsis acute organ dysfunction type: acute respiratory failure Severe sepsis shock status: without septic shock Acute hypoxic respiratory failure J96.01 Pneumonia J18.9 Pneumonia type: due to unspecified organism Parkinson's disease, unspecified whether dyskinesia present, unspecified whether manifestations fluctuate G20.A1 Dyskinesia presence: unspecified whether dyskinesia Fluctuating manifestations: unspecified whether manifestations fluctuate Hypotension I95.9 Urinary tract infection associated with indwelling urethral catheter, initial encounter T83.511A; N39.0 Encounter type: initial encounter Indwelling urinary catheter type: indwelling urethral catheter Urinary tract infection type: catheter-associated UTI Documented by User: Trav Leavitt MD 03/18/23 10:12 Physical Exam 2 Narrative: General exam is a white male, intubated and sedated, significant secretions HEENT: Endotracheal and oropharyngeal tube noted Neck is supple, no lymphadenopathy, Cardiovascular regular rate and rhythm, no murmur Lungs sounds noted to be coarse on right anterior, left anterior noted to be diminished range. Abdomen is soft, PEG tube noted. exam demonstrates Moreau Extremities noted to have 2+ pitting edema bilateral lower extremities. Skin no rash but back not examined. Urinary Catheter Management: Moreau: Cath Placed During This Visit: yes Data 03/18/23 03:27 03/18/23 03:27 Other Labs: Chest x-ray reviewed. Tubes okay. Slight increase infiltrate right lung ABG and ventilator settings reviewed A&P Assessment and plan (1) Sepsis: Qualifiers: Acute respiratory failure type: with hypoxia Sepsis acute organ dysfunction status: with acute organ dysfunction Sepsis type: sepsis due to unspecified organism Severe sepsis acute organ dysfunction type: acute respiratory failure Severe sepsis shock status: without septic shock Qualified Code(s): A41.9 - Sepsis, unspecified organism; R65.20 - Severe sepsis without septic shock; J96.01 - Acute respiratory failure with hypoxia (2) Acute hypoxic respiratory failure: (3) Pneumonia: Continue IV antibiotics consisting of Zosyn, vancomycin Sputum culture, pending. Blood culture, pending. Await MRSA PCR COVID and flu negative Qualifiers: Pneumonia type: due to unspecified organism (4) Parkinsons disease: Continue his home medications Qualifiers: Dyskinesia presence: unspecified whether dyskinesia Fluctuating manifestations: unspecified whether manifestations fluctuate Qualified Code(s): G20.A1 - Parkinson's disease without dyskinesia, without mention of fluctuations (5) Hypotension: (6) Urinary tract infection: Qualifiers: Encounter type: initial encounter Indwelling urinary catheter type: i ndwelling urethral catheter Urinary tract infection type: catheter-associated UTI Qualified Code(s): T83.511A - Infection and inflammatory reaction due to indwelling urethral catheter, initial encounter; N39.0 - Urinary tract infection, site not specified Attestations 2 Medical Necessity Statement*: Needs continued hospitalization secondary to respiratory failure requiring mechanical ventilation. Critical Care Time: The high probability of a clinically significant, sudden or life threatening deterioration of the patient's [respiratory, cardiovascular, infectious] s ystem(s) required my full and direct attention, intervention and personal management. The critical care time is as shown. This time is in addition to time spent performing any reported procedures but includes the following: [x] Data and vital sign review and interpretation [x] Patient assessment, examination and intervention [x] Documentation [x] Medication orders and management Critical Care Time (min): 31 Coding Level of Care Code Critical Care >/= 30 minutes Critical care time (in minutes): 31 The high probability of a clinically significant, sudden or life threatening deterioration, as referenced in this documentation, required my full and direct attention, intervention and personal management. The critical care time shown is in addition to time spent performing any reported separately billable procedures and includes the following: [x] Data and vital sign review and interpretation [x ] Patient assessment, examination and intervention [x] Medication orders and management [x] Patient/Family updates as able [x] Care Coordination and Documentation. Diagnoses Sepsis with acute hypoxic respiratory failure without septic shock, due to unspecified organism A41.9; R65.20; J96.01 Acute respiratory failure type: with hypoxia Sepsis acute organ dysfunction status: with acute organ dysfunction Sepsis type: sepsis due to unspecified organism Severe sepsis acute organ dysfunction type: acute respiratory failure Severe sepsis shock status: without septic shock Acute hypoxic respiratory failure J96.01 Pneumonia J18.9 Pneumonia type: due to unspecified organism Parkinson's disease, unspecified whether dyskinesia present, unspecified whether manifestations fluctuate G20.A1 Dyskinesia presence: unspecified whether dyskinesia Fluctuating manifestations: unspecified whether manifestations fluctuate Hypotension I95.9 Urinary tract infection associated with indwelling urethral catheter, initial encounter T83.511A; N39.0 Encounter type: initial encounter Indwelling urinary catheter type: indwelling urethral catheter Urinary tract infection type: catheter-associated UTI
[2023-03-18] MEDS: PARoxetine 20 mg Tablet 40 MG PO (20:43)
[2023-03-19] VITALS (58 sets, daily range): BP systolic 105–195; BP diastolic 55–98; PULSE 56–90; RESP 10–22; TEMP 36.5–37.7; O2SAT 90–100; BMI 26.7
[2023-03-19] MEDS: pantoprazole 40 mg SDV IVP (01:40)
[2023-03-19] MEDS: propofol 1,000 MG/100 ML INJ 8.78 MG IV (01:41)
[2023-03-19] MEDS: enoxaparin 40 mg/0.4 mL Syringe SUBCUT (01:41)
[2023-03-19] MEDS: fentaNYL 1,000 MCG/100 ML BAG 10 MCG IV (02:16)
[2023-03-19 03:20] LABS: Basophils % 0.2 %; Eosinophils # 0.3 10^3/uL (0.0-0.8); Eosinophils % 4.1 %; Lymphocytes # 0.9 10^3/uL (0.8-4.8); Lymphocytes % 10.9 %; Mean Corpuscular HGB Conc 31.4 g/dL (30-55); Mean Corpuscular Hemoglobin 27.9 pg (27-33); Mean Corpuscular Volume 88.8 fl (82-101); Mean Platelet Volume 11.2 fL (7.4-10.4); Monocytes # 0.6 10^3/uL (0.2-0.9); Monocytes % 7.2 %; Neutrophils # 6.36 10^3/uL (1.8-7.7); Neutrophils % 77.2 %; Nucleated Red Blood Cells % 0 %; Platelet Count 131 10^3/cmm (157-399); Red Blood Count 3.94 10^6/uL (3.85-5.65); Red Cell Distribution Width 15.2 % (12.1-15.1); White Blood Count 8.24 10^3/uL (3.29-11.43)
[2023-03-19 03:37] LABS: Alanine Aminotransferase < 5 U/L (0-41); Albumin Level 3.2 g/dL (3.5-5.2); Alkaline Phosphatase 54 U/L (40-130); Anion Gap 11.5 (5-19); Aspartate Amino Transferase 12 U/L (0-40); Blood Urea Nitrogen 10 mg/dL (8-23); Calcium 7.9 mg/dL (8.5-10.5); Carbon Dioxide 26 mmol/L (22-29); Chloride 104 mmol/L (98-107); Globulin 2.3 g/dL (1.3-4.6); Glucose 84 mg/dL (65-115); Magnesium 2.1 mg/dL (1.7-2.3); Osmolality Calculated 284 mOsm/kg (285-295); Potassium 3.5 mmol/L (3.5-5.1); Sodium 138 mmol/L (136-145); Total Bilirubin 0.6 mg/dL (0.15-1.2); Total Protein 5.5 g/dL (6.6-8.7)
[2023-03-19] MEDS: ipratropium-albuterol 3 mL Neb INHALATION ×5 (04:19→20:20)
[2023-03-19 04:34] LABS: ABG PCO2 47.3 mmHg (35-45); ABG PH Result 7.37 (7.35-7.45); Arterial Blood Gas Hematocrit 35.9 % (42-52); Base Excess ABG 1.1 mmol/L (-2.0-2.0); Blood Gas Allen Test Pos; Blood Gas Sample Site Brachial, right; Blood Gas Sample Type Arterial; Oxygen Device VENT; PO2 ABG 95.2 mmHg (80.0-100.0); PO2 FiO2 Ratio Arterial Blood 0
[2023-03-19] MEDS: piperacillin-tazobactam 3.375 GM in sodium chloride 0.9% (plus) 50 ML IV ×3 (06:11→22:25)
--- NOTE | 2023-03-19 07:00 | XRR_ITS ---
PROCEDURE INFORMATION: Exam: XR Chest Exam date and time: 03/19/2023 6:34 AM Age: 82 years old Clinical indication: Shortness of breath; Additional info: Resp failure TECHNIQUE: Imaging protocol: Radiologic exam of the chest. Views: 1 view. COMPARISON: CR XR chest 1V portable [id number] 03/18/2023 7:05 AM FINDINGS: Lungs: Persistent left-sided pulmonary infiltrate, slightly increasing in the upper lobes. Stable infiltrate at the medial right lung base. Pleural spaces: Stable small left pleural effusion. Heart/Mediastinum: No change in the heart or mediastinum. Bones/joints: ORIF of the right humerus. Other findings: Stable life support lines. XR/XR chest 1V portable [id number] IMPRESSION: Little change although the left upper lobe infiltrate is increasing slightly.
--- NOTE | 2023-03-19 08:09 | P.PN_ITS ---
Documented by User: stanley Mcwilliams 03/19/23 08:26 Subjective 2 Subjective: Patient was evaluated this morning while lying in bed mechanically ventilated. Nursing/respiratory staff in at same time and was performing sedation vacation. Patient currently on propofol and fentanyl. Plan is to continue to wean down ventilator settings and extubate as soon as tolerated. Medications: Reviewed: Yes Vitals/I&O/Wt Last Vital Signs Temp 97.7 F 03/19/23 01:00 Pulse 57 L 03/19/23 07:17 Resp 12 03/19/23 07:25 BP 105/55 03/19/23 06:00 Pulse Ox 97 03/19/23 07:25 O2 Del Method Mechanical Ventilation 03/19/23 07:17 O2 Flow Rate 15 03/16/23 21:12 FiO2 30 03/19/23 07:25 03/18/23 03/19/23 03/19/23 22:59 06:59 14:59 Intake Total 113.417 / 1513.463 182.458 / 1695.921 99.662 / 99.662 Output Total 925 / 925 850 / 1775 Balance -811.583 / 588.463 -667.542 / -79.079 99.662 / 99.662 Weight last 48 hrs Weight 99.7 kg Weight 99.7 kg Physical Exam 2 Narrative: General exam is a white male, intubated and sedated, significant secretions HEENT: Endotracheal and oropharyngeal tube noted Neck is supple, no lymphadenopathy, Cardiovascular regular rate and rhythm, no murmur, sinus bradycardia on telemetry (58) Lungs sounds noted to be clear on right anterior, left anterior noted to be coarse diminished. Abdomen is soft. Active bowel sounds per auscultation. exam demonstrates Moreau Extremities noted to have 2+ pitting edema bilateral lower extremities. Skin no rash but back not examined. Urinary Catheter Management: Moreau: Cath Placed During This Visit: yes Reason for Continuing Indwelling Catheter: Accurate Measurement of Urinary Output in Critically Ill Patients Urinary Catheter Date of Insertion: 03/17/23 Urinary Catheter Time of Insertion: 06:00 Data 03/19/23 03:11 03/19/23 03:11 Micro: Microbiology 03/18/23 17:32 Bacterial Antigens - Final Urine,Clean Catch 03/17/23 05:00 Gram Stain - Final Sputum - Endotracheal Tube Aspirate Sputum Culture - Preliminary 03/16/23 21:15 Urine Culture - Preliminary Urine,Clean Catch Gram Negative Rods CXR: My impression: Per my interpretation, left upper lobe infiltration is slightly increasing than previous chest x-ray. Radiologist's impression: IMPRESSION: Little change although the left upper lobe infiltrate is increasing slightly. ABG Interpretation 1: 03/16/23 03/17/23 03/18/23 21:45 05:35 04:00 ABG pH 7.32 L 7.32 L 7.34 L ABG pCO2 48.0 H 45.0 48.8 H ABG pO2 98.2 122.0 H 98.2 ABG HCO3 24.9 23.1 26.5 H ABG Base Excess -1.7 -3.2 L 0.3 03/19/23 04:25 ABG pH 7.37 ABG pCO2 47.3 H ABG pO2 95.2 ABG HCO3 27.0 H ABG Base Excess 1.1 A&P Assessment and plan (1) Sepsis: Patient presents with sepsis. Multifactorial due to pneumonia and possible UTI. Pending blood cultures. Qualifiers: Acute respiratory failure type: with hypoxia Sepsis acute organ dysfunction status: with acute organ dysfunction Sepsis type: sepsis due to unspecified organism Severe sepsis acute organ dysfunction type: acute respiratory failure Severe sepsis shock status: without septic shock Qualified Code(s): A41.9 - Sepsis, unspecified organism; R65.20 - Severe sepsis without septic shock; J96.01 - Acute respiratory failure with hypoxia (2) Acute hypoxic respiratory failure: Patient was intubated in the emergency department 03/17/23. Slightly worsening infiltrate on left upper lobe per x-ray this a.m. Continue Fentanyl, propofol for sedation Wean ventilator as tolerated. ABGs and settings reviewed. Once patient more alert and able to follow commands, we will potentiate extubation as patient is on minimal settings. FiO2 30% with a oxygen saturation of 98%. (3) Pneumonia: Continue IV antibiotics consisting of Zosyn, vancomycin Sputum culture, pending. Blood culture, pending. Await MRSA PCR COVID and flu negative Qualifiers: Pneumonia type: due to unspecified organism (4) Parkinsons disease: Continue home medication, carbidopa levodopa. Qualifiers: Dyskinesia presence: unspecified whether dyskinesia Fluctuating manifestations: unspecified whether manifestations fluctuate Qualified Code(s): G20.A1 - Parkinson's disease without dyskinesia, without mention of fluctuations (5) Hypotension: Resolved Normotensive this a.m. Sinus bradycardia on telemetry with a heart rate of 59. Norepinephrine drip as needed for hypotensive episodes. (6) Urinary tract infection: Urine culture pending. Bacterial antigens negative. Continue IV Zosyn for coverage. Qualifiers: Encounter type: initial encounter Indwelling urinary catheter type: i ndwelling urethral catheter Urinary tract infection type: catheter-associated UTI Qualified Code(s): T83.511A - Infection and inflammatory reaction due to indwelling urethral catheter, initial encounter; N39.0 - Urinary tract infection, site not specified Plan Plan as stated above. We will continue to wean ventilator settings as tolerated. Patient currently undergoing sedation vacation this a.m. Once patient more alert and able to follow commands, we will potentiate extubation. Full code currently Lovenox for DVT prophylaxis Protonix for GI prophylaxis Attestations 2 Medical Necessity Statement*: Needs continued hospitalization secondary to respiratory failure requiring mechanical ventilation. Coding Level of Care Code Critical Care >/= 30 minutes Diagnoses Sepsis with acute hypoxic respiratory failure without septic shock, due to unspecified organism A41.9; R65.20; J96.01 Acute respiratory failure type: with hypoxia Sepsis acute organ dysfunction status: with acute organ dysfunction Sepsis type: sepsis due to unspecified organism Severe sepsis acute organ dysfunction type: acute respiratory failure Severe sepsis shock status: without septic shock Acute hypoxic respiratory failure J96.01 Pneumonia J18.9 Pneumonia type: due to unspecified organism Parkinson's disease, unspecified whether dyskinesia present, unspecified whether manifestations fluctuate G20.A1 Dyskinesia presence: unspecified whether dyskinesia Fluctuating manifestations: unspecified whether manifestations fluctuate Hypotension I95.9 Urinary tract infection associated with indwelling urethral catheter, initial encounter T83.511A; N39.0 Encounter type: initial encounter Indwelling urinary catheter type: indwelling urethral catheter Urinary tract infection type: catheter-associated UTI Documented by User: Trav Leavitt MD 03/19/23 08:43 Physical Exam 2 Narrative: General exam is a white male, intubated and sedated, significant secretions HEENT: Endotracheal and oropharyngeal tube noted Neck is supple, no lymphadenopathy, Cardiovascular regular rate and rhythm, no murmur, sinus bradycardia on telemetry (58) Lungs sounds noted to be clear on right anterior, left anterior noted to be coarse diminished. Abdomen is soft. Active bowel sounds per auscultation. exam demonstrates Moreau Extremities noted to have 1 plus pitting edema bilateral lower extremities. Skin no rash but back not examined. Urinary Catheter Management: Moreau: Cath Placed During This Visit: yes Data 03/19/23 03:11 03/19/23 03:11 CXR: My impression: Per my interpretation, not much change from yesterday. A&P Assessment and plan (1) Sepsis: Qualifiers: Acute respiratory failure type: with hypoxia Sepsis acute organ dysfunction status: with acute organ dysfunction Sepsis type: sepsis due to unspecified organism Severe sepsis acute organ dysfunction type: acute respiratory failure Severe sepsis shock status: without septic shock Qualified Code(s): A41.9 - Sepsis, unspecified organism; R65.20 - Severe sepsis without septic shock; J96.01 - Acute respiratory failure with hypoxia (2) Acute hypoxic respiratory failure: Patient was intubated in the emergency department 03/17/23. Slightly worsening infiltrate on left upper lobe per x-ray this a.m. Continue Fentanyl, propofol for sedation Wean ventilator as tolerated. ABGs and settings reviewed. Once patient more alert and able to follow commands, we will potentiate extubation as patient is on minimal settings. FiO2 30% with a oxygen saturation of 98%. Possible extubation today Lasix 40 mg IV to facilitate extubation. When extubated, will need speech therapy evaluation as aspiration not excluded for cause of pneumonia in this patient with Parkinson's and dementia. (3) Pneumonia: Qualifiers: Pneumonia type: due to unspecified organism (4) Parkinsons disease: Qualifiers: Dyskinesia presence: unspecified whether dyskinesia Fluctuating manifestations: unspecified whether manifestations fluctuate Qualified Code(s): G20.A1 - Parkinson's disease without dyskinesia, without mention of fluctuations (5) Hypotension: Resolved Normotensive this a.m. Sinus bradycardia on telemetry with a heart rate of 59. Discontinue norepinephrine drip order although it has not been used in over 24 hours. Echocardiogram is done and showed normal EF, 1/4 diastolic dysfunction (6) Urinary tract infection: Qualifiers: Encounter type: initial encounter Indwelling urinary catheter type: i ndwelling urethral catheter Urinary tract infection type: catheter-associated UTI Qualified Code(s): T83.511A - Infection and inflammatory reaction due to indwelling urethral catheter, initial encounter; N39.0 - Urinary tract infection, site not specified Attestations 2 Critical Care Time: The high probability of a clinically significant, sudden or life threatening deterioration of the patient's [infectious disease, pulmonary] system(s) required my full and direct attention, intervention and personal management. The critical care time is as shown. This time is in addition to time spent performing any reported procedures but includes the following: [x] Data and vital sign review and interpretation [x] Patient assessment, examination and intervention [x] Documentation [x] Medication orders and management Critical Care Time (min): 37 Coding Level of Care Code Critical Care >/= 30 minutes Critical care time (in minutes): 37 The high probability of a clinically significant, sudden or life threatening deterioration, as referenced in this documentation, required my full and direct attention, intervention and personal management. The critical care time shown is in addition to time spent performing any reported separately billable procedures and includes the following: [x] Data and vital sign review and interpretation [x ] Patient assessment, examination and intervention [x] Medication orders and management [x] Patient/Family updates as able [x] Care Coordination and Documentation. Diagnoses Sepsis with acute hypoxic respiratory failure without septic shock, due to unspecified organism A41.9; R65.20; J96.01 Acute respiratory failure type: with hypoxia Sepsis acute organ dysfunction status: with acute organ dysfunction Sepsis type: sepsis due to unspecified organism Severe sepsis acute organ dysfunction type: acute respiratory failure Severe sepsis shock status: without septic shock Acute hypoxic respiratory failure J96.01 Pneumonia J18.9 Pneumonia type: due to unspecified organism Parkinson's disease, unspecified whether dyskinesia present, unspecified whether manifestations fluctuate G20.A1 Dyskinesia presence: unspecified whether dyskinesia Fluctuating manifestations: unspecified whether manifestations fluctuate Hypotension I95.9 Urinary tract infection associated with indwelling urethral catheter, initial encounter T83.511A; N39.0 Encounter type: initial encounter Indwelling urinary catheter type: indwelling urethral catheter Urinary tract infection type: catheter-associated UTI
[2023-03-19] MEDS: carbidopa-levodopa 25-100mg Tablet 1 EACH PEG-TUBE ×3 (08:19→20:41)
[2023-03-19] MEDS: aspirin 81 mg Chew Tablet PEG-TUBE (08:19)
[2023-03-19] MEDS: ropinirole 2 mg Tablet 3 MG PEG-TUBE ×3 (08:19→20:41)
[2023-03-19] MEDS: FUROsemide 10 mg/mL SDV 4mL 40 MG IVP (08:58)
--- NOTE | 2023-03-19 11:35 | PC.NURSE ---
Patient extubated to 3L NC ,RT Parviz,this nurse also at bedside, and son present. Bilateral wrist restraints removed. Uneventful extubation, patient is resting with family at bedside.
[2023-03-19] MEDS: vancomycin 1,250 MG/250 ML PIGGYBACK 250 MG IV (11:48)
--- NOTE | 2023-03-19 11:58 | PC.NURSE ---
Addendum entered by Myesha Gilbert RN 03/19/23 18:22: Witnessed Waste Original Note: Medication Waste: Fentanyl 49.125mls, Propofol 50.344mls waste with SHANON Brunner.
[2023-03-19 12:35] LABS: Methicillin-Resist S.aureu PCR NOT DETECTED (NOT DETECTED)
--- NOTE | 2023-03-19 14:22 | PC.NUTR ---
Addendum entered by Viraj Walton 03/25/23 09:54: Bolus regimen: Jevity 1.2 @300ml q6 with 150 ml FWF q6 Original Note: PEG EN regimen: Jevity 1.2 beginning at 15 mls/hr and increasing 20ml q8 until goal rate of 55 mls/hr is reached with 150 mls FWF q6. See RD note for details
--- NOTE | 2023-03-19 14:53 | PC.NURSE ---
Tube feed started per data processing mechanic recommendations. 15ml/hr, jevity 1.2, with 150ml/ 6hr FWF.
[2023-03-19] MEDS: lisinopril 5 mg Tablet PO (15:48)
[2023-03-19] MEDS: atropine 1% op soln 2 mL Btl 3 DROP SUBLINGUAL (16:19)
[2023-03-19] MEDS: PARoxetine 20 mg Tablet 40 MG PO (20:41)
[2023-03-19] MEDS: hyDRALAzine 20 mg/mL INJ 1 mL 10 MG IVP (20:44)
[2023-03-20] VITALS (33 sets, daily range): BP systolic 118–197; BP diastolic 56–89; PULSE 64–94; RESP 17–24; TEMP 36.6–37.9; O2SAT 90–94; BMI 24.3
[2023-03-20] MEDS: ipratropium-albuterol 3 mL Neb INHALATION ×4 (00:17→20:20)
[2023-03-20] MEDS: vancomycin 1,250 MG/250 ML PIGGYBACK 250 MG IV ×3 (00:33→23:19)
[2023-03-20] MEDS: enoxaparin 40 mg/0.4 mL Syringe SUBCUT (00:33)
[2023-03-20] MEDS: pantoprazole 40 mg SDV IVP (00:34)
[2023-03-20 04:51] LABS: Basophils % 0.3 %; Eosinophils % 0.4 %; Hematocrit 39.3 % (37-53); Lymphocytes % 9.3 %; Mean Corpuscular HGB Conc 31.8 g/dL (30-55); Mean Corpuscular Hemoglobin 27.2 pg (27-33); Mean Corpuscular Volume 85.4 fl (82-101); Mean Platelet Volume 11.5 fL (7.4-10.4); Monocytes # 0.9 10^3/uL (0.2-0.9); Monocytes % 7.9 %; Neutrophils % 81.7 %; Nucleated Red Blood Cells % 0 %; Platelet Count 198 10^3/cmm (157-399); Red Cell Distribution Width 14.6 % (12.1-15.1)
[2023-03-20 05:11] LABS: Anion Gap 15.1 (5-19); Blood Urea Nitrogen 8 mg/dL (8-23); Calcium 8.7 mg/dL (8.5-10.5); Carbon Dioxide 27 mmol/L (22-29); Chloride 102 mmol/L (98-107); Glucose 110 mg/dL (65-115); Magnesium 2.1 mg/dL (1.7-2.3); Osmolality Calculated 291 mOsm/kg (285-295); Potassium 3.1 mmol/L (3.5-5.1); Sodium 141 mmol/L (136-145)
[2023-03-20] MEDS: piperacillin-tazobactam 3.375 GM in sodium chloride 0.9% (plus) 50 ML IV ×3 (07:38→22:31)
[2023-03-20] MEDS: lisinopril 5 mg Tablet PO (08:00)
[2023-03-20] MEDS: aspirin 81 mg Chew Tablet PEG-TUBE (08:00)
[2023-03-20] MEDS: carbidopa-levodopa 25-100mg Tablet 1 EACH PEG-TUBE ×3 (08:00→21:24)
[2023-03-20] MEDS: acetaminophen 325 mg Tablet 650 MG PO ×2 (08:00→16:31)
[2023-03-20] MEDS: ropinirole 2 mg Tablet 3 MG PEG-TUBE ×3 (08:01→21:24)
[2023-03-20] MEDS: potassium chloride oral liq 20 mEq/15 mL UDC 40 MEQ PEG-TUBE (08:08)
--- NOTE | 2023-03-20 08:22 | P.PN_ITS ---
Documented by User: stanley Mcwilliams 03/20/23 08:47 Subjective 2 Subjective: Patient was evaluated this morning while lying in bed on 2L/NC. Patient was extubated yesterday a.m. and tolerated well. Transition to nasal cannula. This a.m., patient is able to open eyes though unable to converse well. Able to state name and one-word sentences. Patient reports no complaints at this time. Medications: Reviewed: Yes Vitals/I&O/Wt Last Vital Signs Temp 100.3 F H 03/20/23 07:30 Pulse 78 03/20/23 07:30 Resp 23 H 03/20/23 07:30 BP 158/72 03/20/23 07:30 Pulse Ox 92 03/20/23 07:30 O2 Del Method Nasal Cannula 03/20/23 07:30 O2 Flow Rate 2 03/20/23 07:30 FiO2 30 03/19/23 11:24 03/19/23 03/20/23 03/20/23 22:59 06:59 14:59 Intake Total 50 / 600.531 300 / 300 Output Total 1700 / 3850 250 / 4100 Balance -1650 / -3249.469 -250 / -3499.469 300 / 300 Weight last 48 hrs Weight 90.889 kg Weight 99.7 kg Physical Exam 2 Narrative: General exam is a white male, intubated and sedated, significant secretions HEENT: Erythema noted to oropharynx. Head normocephalic, eyes slight excoriation. Neck is supple, no lymphadenopathy, Cardiovascular regular rate and rhythm, no murmur, Lungs sounds coarse throughout. Abdomen is soft. Active bowel sounds per auscultation. exam demonstrates Moreau Extremities noted to have 1+ pitting edema bilateral lower extremities. Skin no rash. Urinary Catheter Management: Moreau: Cath Placed During This Visit: yes Reason for Continuing Indwelling Catheter: Accurate Measurement of Urinary Output in Critically Ill Patients Urinary Catheter Date of Insertion: 03/17/23 Urinary Catheter Time of Insertion: 06:00 Data 03/20/23 04:14 03/20/23 04:14 Other Labs: Potassium 3.1 Micro: Microbiology 03/17/23 05:00 Gram Stain - Final Sputum - Endotracheal Tube Aspirate Sputum Culture - Final 03/16/23 22:54 Blood Culture - Preliminary Blood 03/16/23 22:47 Blood Culture - Preliminary Blood 03/16/23 21:15 Urine Culture - Final Urine,Clean Catch Pseudomonas aeruginosa 03/18/23 17:32 Bacterial Antigens - Final Urine,Clean Catch A&P Assessment and plan (1) Sepsis: Patient presents with sepsis. Multifactorial due to pneumonia and Pseudomonas UTI. Pending blood cultures. CBC and BMP, magnesium in AM Qualifiers: Acute respiratory failure type: with hypoxia Sepsis acute organ dysfunction status: with acute organ dysfunction Sepsis type: sepsis due to unspecified organism Severe sepsis acute organ dysfunction type: acute respiratory failure Severe sepsis shock status: without septic shock Qualified Code(s): A41.9 - Sepsis, unspecified organism; R65.20 - Severe sepsis without septic shock; J96.01 - Acute respiratory failure with hypoxia (2) Urinary tract infection: Urine culture revealed Pseudomonas aeruginosa. We will continue IV Zosyn for coverage. Bacterial antigens negative. Qualifiers: Encounter type: initial encounter Indwelling urinary catheter type: i ndwelling urethral catheter Urinary tract infection type: catheter-associated UTI Qualified Code(s): T83.511A - Infection and inflammatory reaction due to indwelling urethral catheter, initial encounter; N39.0 - Urinary tract infection, site not specified (3) Acute hypoxic respiratory failure: Patient was intubated in the emergency department 03/17/23. Patient was extubated yesterday a.m. transition to nasal cannula. Tolerating well and appears in no respiratory distress at this time. Speech therapy eval Patient currently on Jevity 1.2 with a goal rate of 55 mL/h per RD. 150 mL free water flush every 6 hours. Scheduled Q6H breathing treatments. (4) Pneumonia: Continue IV antibiotics consisting of Zosyn, vancomycin Vancomycin trough within normal limits Sputum culture, pending. Blood culture, pending. MRSA PCR negative COVID and flu negative Qualifiers: Pneumonia type: due to unspecified organism (5) Parkinsons disease: Continue home medication, carbidopa levodopa. Qualifiers: Dyskinesia presence: unspecified whether dyskinesia Fluctuating manifestations: unspecified whether manifestations fluctuate Qualified Code(s): G20.A1 - Parkinson's disease without dyskinesia, without mention of fluctuations (6) Hypotension: Resolved Echocardiogram is done and showed normal EF, 1/4 diastolic dysfunction Plan Plan as stated above. We will replace potassium today with potassium chloride 40 mEq per PEG. Continue IV by antibiotic regimen. OT eval and treat. Physical therapy continue treatment. Trend blood culture results. CBC and BMP in AM. Full code currently Lovenox for DVT prophylaxis Protonix for GI prophylaxis Coding Level of Care Code 71120 Diagnoses Sepsis with acute hypoxic respiratory failure without septic shock, due to unspecified organism A41.9; R65.20; J96.01 Acute respiratory failure type: with hypoxia Sepsis acute organ dysfunction status: with acute organ dysfunction Sepsis type: sepsis due to unspecified organism Severe sepsis acute organ dysfunction type: acute respiratory failure Severe sepsis shock status: without septic shock Urinary tract infection associated with indwelling urethral catheter, initial encounter T83.511A; N39.0 Encounter type: initial encounter Indwelling urinary catheter type: indwelling urethral catheter Urinary tract infection type: catheter-associated UTI Acute hypoxic respiratory failure J96.01 Pneumonia J18.9 Pneumonia type: due to unspecified organism Parkinson's disease, unspecified whether dyskinesia present, unspecified whether manifestations fluctuate G20.A1 Dyskinesia presence: unspecified whether dyskinesia Fluctuating manifestations: unspecified whether manifestations fluctuate Hypotension I95.9 Time Spent (min) 25 Documented by User: Trav Leavitt MD 03/20/23 10:11 Physical Exam 2 Urinary Catheter Management: Moreau: Cath Placed During This Visit: yes Data 03/20/23 04:14 03/20/23 04:14 A&P Assessment and plan (1) Sepsis: Qualifiers: Acute respiratory failure type: with hypoxia Sepsis acute organ dysfunction status: with acute organ dysfunction Sepsis type: sepsis due to unspecified organism Severe sepsis acute organ dysfunction type: acute respiratory failure Severe sepsis shock status: without septic shock Qualified Code(s): A41.9 - Sepsis, unspecified organism; R65.20 - Severe sepsis without septic shock; J96.01 - Acute respiratory failure with hypoxia (2) Urinary tract infection: Qualifiers: Encounter type: initial encounter Indwelling urinary catheter type: i ndwelling urethral catheter Urinary tract infection type: catheter-associated UTI Qualified Code(s): T83.511A - Infection and inflammatory reaction due to indwelling urethral catheter, initial encounter; N39.0 - Urinary tract infection, site not specified (3) Acute hypoxic respiratory failure: (4) Pneumonia: Qualifiers: Pneumonia type: due to unspecified organism (5) Parkinsons disease: Qualifiers: Dyskinesia presence: unspecified whether dyskinesia Fluctuating manifestations: unspecified whether manifestations fluctuate Qualified Code(s): G20.A1 - Parkinson's disease without dyskinesia, without mention of fluctuations (6) Hypotension: Plan Plan as stated above. We will replace potassium today with potassium chloride 40 mEq per PEG. Continue IV by antibiotic regimen. OT eval and treat. Physical therapy continue treatment. Trend blood culture results. CBC and BMP in AM. Full code currently Lovenox for DVT prophylaxis Protonix for GI prophylaxis Transfer out of ICU Attestations 2 Medical Necessity Statement*: Needs continued hospitalization for send for IV antibiotics secondary to pneumonia. Diagnoses Sepsis with acute hypoxic respiratory failure without septic shock, due to unspecified organism A41.9; R65.20; J96.01 Acute respiratory failure type: with hypoxia Sepsis acute organ dysfunction status: with acute organ dysfunction Sepsis type: sepsis due to unspecified organism Severe sepsis acute organ dysfunction type: acute respiratory failure Severe sepsis shock status: without septic shock Urinary tract infection associated with indwelling urethral catheter, initial encounter T83.511A; N39.0 Encounter type: initial encounter Indwelling urinary catheter type: indwelling urethral catheter Urinary tract infection type: catheter-associated UTI Acute hypoxic respiratory failure J96.01 Pneumonia J18.9 Pneumonia type: due to unspecified organism Parkinson's disease, unspecified whether dyskinesia present, unspecified whether manifestations fluctuate G20.A1 Dyskinesia presence: unspecified whether dyskinesia Fluctuating manifestations: unspecified whether manifestations fluctuate Hypotension I95.9 Time Spent (min) 25
--- NOTE | 2023-03-20 12:45 | PC.NURSE ---
Report called to TEOFILO Allen. called and notified of transfer. Patient and belongings taken to room 256-1.
[2023-03-20] MEDS: hyDRALAzine 20 mg/mL INJ 1 mL 10 MG IVP (16:31)
--- NOTE | 2023-03-20 17:15 | PC.OT ---
OT eval hold to tomorrow due to patient's status of alertness; will attempt at later time.
[2023-03-20] MEDS: PARoxetine 20 mg Tablet 40 MG PO (21:24)
[2023-03-21] VITALS (16 sets, daily range): BP systolic 148–197; BP diastolic 67–94; PULSE 68–105; RESP 16–20; TEMP 37.4–38.3; O2SAT 92–96
[2023-03-21] MEDS: pantoprazole 40 mg SDV IVP (00:16)
[2023-03-21] MEDS: enoxaparin 40 mg/0.4 mL Syringe SUBCUT (00:16)
[2023-03-21] MEDS: ipratropium-albuterol 3 mL Neb INHALATION ×4 (01:19→20:20)
[2023-03-21 04:57] LABS: Basophils % 0.2 %; Eosinophils % 0.2 %; Hematocrit 42.2 % (37-53); Lymphocytes # 1.3 10^3/uL (0.8-4.8); Lymphocytes % 12.4 %; Mean Corpuscular HGB Conc 31.5 g/dL (30-55); Mean Corpuscular Hemoglobin 27.5 pg (27-33); Mean Corpuscular Volume 87.4 fl (82-101); Mean Platelet Volume 11.2 fL (7.4-10.4); Monocytes # 0.9 10^3/uL (0.2-0.9); Monocytes % 9.1 %; Neutrophils # 7.84 10^3/uL (1.8-7.7); Neutrophils % 77.7 %; Nucleated Red Blood Cells % 0 %; Platelet Count 220 10^3/cmm (157-399); Red Blood Count 4.83 10^6/uL (3.85-5.65); Red Cell Distribution Width 14.6 % (12.1-15.1); White Blood Count 10.09 10^3/uL (3.29-11.43)
[2023-03-21 05:16] LABS: Anion Gap 13.1 (5-19); Blood Urea Nitrogen 12 mg/dL (8-23); Calcium 8.8 mg/dL (8.5-10.5); Carbon Dioxide 27 mmol/L (22-29); Chloride 106 mmol/L (98-107); Glucose 146 mg/dL (65-115); Osmolality Calculated 298 mOsm/kg (285-295); Potassium 3.1 mmol/L (3.5-5.1); Sodium 143 mmol/L (136-145)
[2023-03-21] MEDS: piperacillin-tazobactam 3.375 GM in sodium chloride 0.9% (plus) 50 ML IV (06:02)
--- NOTE | 2023-03-21 08:38 | P.PN_ITS ---
Subjective 2 Subjective: Naun presents is open morning in the room. He says a few words. He can follow some directions but appears severely weak. Medications: Reviewed: Yes Vitals/I&O/Wt Last Vital Signs Temp 99.4 F 03/21/23 08:14 Pulse 74 03/21/23 08:32 Resp 18 03/21/23 08:32 BP 189/87 03/21/23 08:14 Pulse Ox 94 03/21/23 08:32 O2 Del Method Nasal Cannula 03/21/23 08:32 O2 Flow Rate 2 03/21/23 08:32 FiO2 30 03/19/23 11:24 03/20/23 03/21/23 03/21/23 22:59 06:59 14:59 Intake Total 50 / 1528 300 / 1828 Output Total 350 / 650 150 / 800 Balance -300 / 878 150 / 1028 Weight last 48 hrs Weight 94.914 kg Weight 90.889 kg Physical Exam 2 Narrative: General exam is a white male, awakens and tries to follow directions, speech difficult to understand Neck is supple, no lymphadenopathy, Cardiovascular regular rate and rhythm, no murmur Lungs diminished breath sounds at the bases Abdomen is soft. Active bowel sounds per auscultation. exam demonstrates Moreau Extremities noted to have 1 plus pitting edema bilateral lower extremities. Urinary Catheter Management: Moreau: Cath Placed During This Visit: yes Reason for Continuing Indwelling Catheter: Other Urinary Catheter Date of Insertion: 03/17/23 Urinary Catheter Time of Insertion: 06:00 Data 03/21/23 04:45 03/21/23 04:45 A&P Assessment and plan (1) Sepsis: Patient presents with sepsis. Multifactorial due to pneumonia and Pseudomonas UTI. Blood cultures negative to date Daily lab Qualifiers: Acute respiratory failure type: with hypoxia Sepsis acute organ dysfunction status: with acute organ dysfunction Sepsis type: sepsis due to unspecified organism Severe sepsis acute organ dysfunction type: acute respiratory failure Severe sepsis shock status: without septic shock Qualified Code(s): A41.9 - Sepsis, unspecified organism; R65.20 - Severe sepsis without septic shock; J96.01 - Acute respiratory failure with hypoxia (2) Urinary tract infection: Urine culture revealed Pseudomonas aeruginosa. We will continue IV Zosyn for coverage. Bacterial antigens negative. Qualifiers: Encounter type: initial encounter Indwelling urinary catheter type: i ndwelling urethral catheter Urinary tract infection type: catheter-associated UTI Qualified Code(s): T83.511A - Infection and inflammatory reaction due to indwelling urethral catheter, initial encounter; N39.0 - Urinary tract infection, site not specified (3) Acute hypoxic respiratory failure: Patient was intubated in the emergency department 03/17/23. Patient was extubated March 19. transition to nasal cannula. Tolerating well and appears in no respiratory distress at this time. Speech therapy eval appreciated Patient currently on Jevity 1.2 with a goal rate of 55 mL/h per RD. 150 mL free water flush every 6 hours. Scheduled Q6H breathing treatments. (4) Pneumonia: Continue IV antibiotics consisting of Zosyn, vancomycin Vancomycin trough within normal limits Sputum culture, pending. Blood culture, negative to date MRSA PCR negative COVID and flu negative Occasional low-grade temperature Qualifiers: Pneumonia type: due to unspecified organism (5) Parkinsons disease: Continue home medication, carbidopa levodopa. Qualifiers: Dyskinesia presence: unspecified whether dyskinesia Fluctuating manifestations: unspecified whether manifestations fluctuate Qualified Code(s): G20.A1 - Parkinson's disease without dyskinesia, without mention of fluctuations (6) Hypotension: Resolved Echocardiogram is done and showed normal EF, 1/4 diastolic dysfunction Plan Hypokalemia. Replace potassium Global weakness. Therapy consulted. Will need extensive therapy as an outpatient Allow natural Lovenox for DVT prophylaxis Protonix for GI prophylaxis Attestations 2 Medical Necessity Statement*: Needs continued hospitalization for IV antibiotics related to pneumonia Diagnoses Sepsis with acute hypoxic respiratory failure without septic shock, due to unspecified organism A41.9; R65.20; J96.01 Acute respiratory failure type: with hypoxia Sepsis acute organ dysfunction status: with acute organ dysfunction Sepsis type: sepsis due to unspecified organism Severe sepsis acute organ dysfunction type: acute respiratory failure Severe sepsis shock status: without septic shock Urinary tract infection associated with indwelling urethral catheter, initial encounter T83.511A; N39.0 Encounter type: initial encounter Indwelling urinary catheter type: indwelling urethral catheter Urinary tract infection type: catheter-associated UTI Acute hypoxic respiratory failure J96.01 Pneumonia J18.9 Pneumonia type: due to unspecified organism Parkinson's disease, unspecified whether dyskinesia present, unspecified whether manifestations fluctuate G20.A1 Dyskinesia presence: unspecified whether dyskinesia Fluctuating manifestations: unspecified whether manifestations fluctuate Hypotension I95.9 Time Spent (min) 24
--- NOTE | 2023-03-21 09:10 | PC.SOCIAL ---
IMM Update pg 2 of IMM updated and reviewed w/ patient. Copy provided and copy dated, initialed and placed in chart.
[2023-03-21] MEDS: carbidopa-levodopa 25-100mg Tablet 1 EACH PEG-TUBE ×3 (10:21→20:48)
[2023-03-21] MEDS: ropinirole 2 mg Tablet 3 MG PEG-TUBE ×3 (10:21→20:47)
[2023-03-21] MEDS: lisinopril 5 mg Tablet 10 MG PO (10:21)
[2023-03-21] MEDS: aspirin 81 mg Chew Tablet PEG-TUBE (10:22)
[2023-03-21] MEDS: potassium chloride oral liq 20 mEq/15 mL UDC 40 MEQ PO (12:01)
[2023-03-21] MEDS: hyDRALAzine 20 mg/mL INJ 1 mL 10 MG IVP (12:01)
[2023-03-21] MEDS: vancomycin 1,250 MG/250 ML PIGGYBACK 250 MG IV ×2 (12:02→23:07)
[2023-03-21] MEDS: meropenem 1,000 MG in sodium chloride 0.9% (plus) 50 ML 100 MG IV ×2 (16:18→23:06)
[2023-03-21] MEDS: acetaminophen 325 mg Tablet 650 MG PO (20:47)
[2023-03-21] MEDS: PARoxetine 20 mg Tablet 40 MG PO (20:48)
[2023-03-22] VITALS (15 sets, daily range): BP systolic 161–184; BP diastolic 78–87; PULSE 66–93; RESP 16–27; TEMP 37.1–38.1; O2SAT 95–98
[2023-03-22] MEDS: enoxaparin 40 mg/0.4 mL Syringe SUBCUT (00:05)
[2023-03-22] MEDS: pantoprazole 40 mg SDV IVP (00:53)
[2023-03-22] MEDS: ipratropium-albuterol 3 mL Neb INHALATION ×4 (02:54→20:11)
[2023-03-22 05:06] LABS: Basophils % 0.5 %; Eosinophils # 0.1 10^3/uL (0.0-0.8); Eosinophils % 0.6 %; Hematocrit 38.9 % (37-53); Lymphocytes # 1.2 10^3/uL (0.8-4.8); Lymphocytes % 15.5 %; Mean Corpuscular HGB Conc 32.4 g/dL (30-55); Mean Corpuscular Hemoglobin 27.5 pg (27-33); Mean Corpuscular Volume 84.7 fl (82-101); Mean Platelet Volume 11.5 fL (7.4-10.4); Monocytes # 0.9 10^3/uL (0.2-0.9); Monocytes % 11.1 %; Neutrophils # 5.73 10^3/uL (1.8-7.7); Nucleated Red Blood Cells % 0 %; Platelet Count 232 10^3/cmm (157-399); Red Blood Count 4.59 10^6/uL (3.85-5.65); Red Cell Distribution Width 14.8 % (12.1-15.1); White Blood Count 7.95 10^3/uL (3.29-11.43)
[2023-03-22 05:24] LABS: Alanine Aminotransferase 50 U/L (0-41); Albumin Level 3.4 g/dL (3.5-5.2); Alkaline Phosphatase 73 U/L (40-130); Anion Gap 13.3 (5-19); Aspartate Amino Transferase 92 U/L (0-40); Blood Urea Nitrogen 18 mg/dL (8-23); Calcium 8.4 mg/dL (8.5-10.5); Carbon Dioxide 27 mmol/L (22-29); Chloride 111 mmol/L (98-107); Glucose 160 mg/dL (65-115); Magnesium 2.4 mg/dL (1.7-2.3); Osmolality Calculated 311 mOsm/kg (285-295); Potassium 3.3 mmol/L (3.5-5.1); Sodium 148 mmol/L (136-145); Total Bilirubin 0.6 mg/dL (0.15-1.2); Total Protein 6.4 g/dL (6.6-8.7)
[2023-03-22] MEDS: meropenem 1,000 MG in sodium chloride 0.9% (plus) 50 ML 100 MG IV ×3 (09:03→23:02)
[2023-03-22] MEDS: lisinopril 5 mg Tablet 10 MG PO (09:05)
[2023-03-22] MEDS: carbidopa-levodopa 25-100mg Tablet 1 EACH PEG-TUBE ×3 (09:06→20:54)
[2023-03-22] MEDS: aspirin 81 mg Chew Tablet PEG-TUBE (09:06)
[2023-03-22] MEDS: ropinirole 2 mg Tablet 3 MG PEG-TUBE ×3 (09:06→20:54)
[2023-03-22] MEDS: vancomycin 1,250 MG/250 ML PIGGYBACK 250 MG IV ×2 (12:51→23:34)
[2023-03-22] MEDS: hyDRALAzine 20 mg/mL INJ 1 mL 10 MG IVP (13:01)
--- NOTE | 2023-03-22 14:46 | PM.PN ---
Subjective Subjective: Seen this morning. daughter, son-in-law at bedside. Patient actively gurgling and rattling sound heard in the room. He was suctioned by nurse. Currently running PEG feeds. RN brushes teeth. Vitals/I&O/Wt Last Vital Signs Temp 98.7 F 03/22/23 12:00 Pulse 68 03/22/23 13:18 Resp 22 H 03/22/23 13:11 BP 173/82 03/22/23 14:00 Pulse Ox 97 03/22/23 13:11 O2 Del Method Nasal Cannula 03/22/23 13:11 O2 Flow Rate 2 03/22/23 13:11 FiO2 30 03/19/23 11:24 03/21/23 03/22/23 03/22/23 22:59 06:59 14:59 Intake Total 300 / 350 300 / 650 50 / 50 Output Total 550 / 550 Balance 300 / 350 -250 / 100 50 / 50 Weight last 48 hrs Weight 94.914 kg Weight 94.914 kg Physical Exam Narrative: General exam is a white male, awakens and tries to follow directions, speech difficult to understand Neck is supple, no lymphadenopathy, Cardiovascular regular rate and rhythm, no murmur Lungs diminished breath sounds at the bases Abdomen is soft. Active bowel sounds per auscultation. exam demonstrates Moreau Extremities noted to have 1 plus pitting edema bilateral lower extremities. Urinary Catheter Management: Moreau: Cath Placed During This Visit: yes Reason for Continuing Indwelling Catheter: Acute Urinary Retention or Obstruction Urinary Catheter Date of Insertion: 03/17/23 Urinary Catheter Time of Insertion: 06:00 Data 03/22/23 04:40 03/22/23 04:40 A&P Assessment and plan (1) Sepsis: Patient presents with sepsis. Multifactorial due to pneumonia and Pseudomonas UTI. Blood cultures negative to date Daily lab Qualifiers: Acute respiratory failure type: with hypoxia Sepsis acute organ dysfunction status: with acute organ dysfunction Sepsis type: sepsis due to unspecified organism Severe sepsis acute organ dysfunction type: acute respiratory failure Severe sepsis shock status: without septic shock Qualified Code(s): A41.9 - Sepsis, unspecified organism; R65.20 - Severe sepsis without septic shock; J96.01 - Acute respiratory failure with hypoxia (2) Urinary tract infection: Urine culture revealed Pseudomonas aeruginosa. We will continue IV Zosyn for coverage. Bacterial antigens negative. Qualifiers: Encounter type: initial encounter Indwelling urinary catheter type: indwelling urethral catheter Urinary tract infection type: catheter-associated UTI Qualified Code(s): T83.511A - Infection and inflammatory reaction due to indwelling urethral catheter, initial encounter; N39.0 - Urinary tract infection, site not specified (3) Acute hypoxic respiratory failure: Patient was intubated in the emergency department 03/17/23. Patient was extubated March 19. transition to nasal cannula. Tolerating well and appears in no respiratory distress at this time. Speech therapy eval appreciated Patient currently on Jevity 1.2 with a goal rate of 55 mL/h per RD. 150 mL free water flush every 6 hours. Scheduled Q6H breathing treatments. (4) Pneumonia: Continue IV antibiotics consisting of Zosyn, vancomycin Vancomycin trough within normal limits Sputum culture, pending. Blood culture, negative to date MRSA PCR negative COVID and flu negative Occasional low-grade temperature Qualifiers: Pneumonia type: due to unspecified organism (5) Parkinsons disease: Continue home medication, carbidopa levodopa. Qualifiers: Dyskinesia presence: unspecified whether dyskinesia Fluctuating manifestations: unspecified whether manifestations fluctuate Qualified Code(s): G20.A1 - Parkinson's disease without dyskinesia, without mention of fluctuations (6) Hypotension: Resolved Echocardiogram is done and showed normal EF, 1/4 diastolic dysfunction (7) Hypernatremia: (8) Hypokalemia: Plan Hypokalemia. Replace potassium Global weakness. Therapy consulted. Will need extensive therapy as an outpatient Allow natural Lovenox for DVT prophylaxis Protonix for GI prophylaxis Today's plan 03/23/2023 ? Recheck chest x-ray in a.m. White count elevated most likely patient reaspirated. I believe he is continuing to aspirate. ? Continue PEG feeds ? Increase free water flushes to 250 every 6 hours. Sodium 148 today. Potassium 3.3. Replete potassium. ? Patient did try to get up with physical therapy but slumped over on the sit to stand. I do not believe he is a candidate for rehab at this time. PT to continue to work with patient. Family's goal is to get him over to rehab somehow. ? Had a conversation with family regarding patient's aspiration risk and him gurgling and rattling. Will place scopolamine patch on him today. ? Had a goals of care discussion, I also discussed the possibility of palliative care at this point. Discussed with and daughter. I also told them that even if this hospitalization he gets better and is able to go to a residential he will reaspirate and we will back to restarted. They they verbalized understanding. For now the plan is to continue to treat to try to get him out of the hospital and to a nursing facility for rehab. It seems patient has had a progressive decline since last year August from when he has been discharged from [facility]. ? Continue carbidopa-levodopa, meropenem, vancomycin at this time. Attestations Medical Necessity Statement*: Needs continued hospitalization for IV antibiotics related to pneumonia Diagnoses Sepsis with acute hypoxic respiratory failure without septic shock, due to unspecified organism A41.9; R65.20; J96.01 Acute respiratory failure type: with hypoxia Sepsis acute organ dysfunction status: with acute organ dysfunction Sepsis type: sepsis due to unspecified organism Severe sepsis acute organ dysfunction type: acute respiratory failure Severe sepsis shock status: without septic shock Urinary tract infection associated with indwelling urethral catheter, initial encounter T83.511A; N39.0 Encounter type: initial encounter Indwelling urinary catheter type: indwelling urethral catheter Urinary tract infection type: catheter-associated UTI Acute hypoxic respiratory failure J96.01 Pneumonia J18.9 Pneumonia type: due to unspecified organism Parkinson's disease, unspecified whether dyskinesia present, unspecified whether manifestations fluctuate G20.A1 Dyskinesia presence: unspecified whether dyskinesia Fluctuating manifestations: unspecified whether manifestations fluctuate Hypotension I95.9 Hypernatremia E87.0 Hypokalemia E87.6
--- NOTE | 2023-03-22 14:53 | XRR_ITS ---
PROCEDURE INFORMATION: Exam: XR Chest Exam date and time: 03/22/2023 3:38 PM Age: 82 years old Clinical indication: Condition or disease; Other: Pneumonia; Additional info: F/u TECHNIQUE: Imaging protocol: Radiologic exam of the chest. Views: 1 view. COMPARISON: CR (CHEST, ) 03/19/2023 6:34 AM FINDINGS: Tubes, catheters and devices: ET and NG/OG tubes and right IJ central venous catheter have been removed. Plate with interlocking screws spanning lower cervical spine and plate with interlocking screws spanning right humerus are partially visualized. Lungs: Prior, hazy opacities at left upper-mid lung have decreased markedly or resolved. Consolidation at left lower lobe is unchanged. Mild air-space opacities at right lower lung are overall stable. Pleural spaces: Unremarkable. No pleural effusion. No pneumothorax. Heart/Mediastinum: Heart remains at upper limit of normal in size. Aorta is mild-moderately calcified. Bones/joints: Mild right mid thoracic scoliosis is unchanged. Degenerative disc and facet disease of lower cervical spine and degenerative disc disease of mid-lower thoracic spine is present. Deformity of right proximal humeral shaft is partially visualized, suggesting old, healed fracture. XR/XR chest 1V portable [id number] IMPRESSION: 1. Markedly decreased or resolved, prior, hazy opacities at left upper-mid lung. Unchanged consolidation at left lower lobe and stable, mild air-space opacities at right lower lung . 2. Persistent, upper limit of normal sized heart. Atherosclerosis.
[2023-03-22] MEDS: potassium chloride oral liq 20 mEq/15 mL UDC 40 MEQ PO (15:15)
[2023-03-22] MEDS: diphenhydrAMINE 50 mg/mL SDV 1mL 25 MG IVP (15:36)
[2023-03-22] MEDS: acetaminophen 325 mg Tablet 650 MG PO ×2 (17:41→20:54)
[2023-03-22] MEDS: PARoxetine 20 mg Tablet 40 MG PO (20:54)
[2023-03-23] VITALS (11 sets, daily range): BP systolic 133–188; BP diastolic 67–92; PULSE 65–78; RESP 15–21; TEMP 37.1–38.2; O2SAT 94–98
[2023-03-23] MEDS: enoxaparin 40 mg/0.4 mL Syringe SUBCUT (00:03)
[2023-03-23] MEDS: pantoprazole 40 mg SDV IVP (00:16)
[2023-03-23] MEDS: ipratropium-albuterol 3 mL Neb INHALATION ×3 (01:32→20:48)
[2023-03-23 07:05] LABS: Blood Urea Nitrogen 20 mg/dL (8-23); Calcium 8.5 mg/dL (8.5-10.5); Carbon Dioxide 27 mmol/L (22-29); Chloride 110 mmol/L (98-107); Glucose 137 mg/dL (65-115); Osmolality Calculated 305 mOsm/kg (285-295); Phosphorus 2.3 mg/dL (2.5-4.5); Sodium 145 mmol/L (136-145)
[2023-03-23] MEDS: meropenem 1,000 MG in sodium chloride 0.9% (plus) 50 ML 100 MG IV ×3 (07:48→23:50)
[2023-03-23] MEDS: hyDRALAzine 20 mg/mL INJ 1 mL 10 MG IVP ×2 (07:49→16:56)
[2023-03-23] MEDS: ropinirole 2 mg Tablet 3 MG PEG-TUBE ×3 (08:32→21:05)
[2023-03-23] MEDS: lisinopril 5 mg Tablet 10 MG PO (08:32)
[2023-03-23] MEDS: aspirin 81 mg Chew Tablet PEG-TUBE (08:33)
[2023-03-23] MEDS: carbidopa-levodopa 25-100mg Tablet 1 EACH PEG-TUBE ×3 (08:33→21:05)
[2023-03-23] MEDS: vancomycin 1,250 MG/250 ML PIGGYBACK 250 MG IV (11:37)
--- NOTE | 2023-03-23 12:40 | P.PN_ITS ---
Subjective 2 Subjective: seen today patient up in chair, appears better family at bedisde phosph 2.3 cbc not obtained today Vitals/I&O/Wt Last Vital Signs Temp 99.4 F 03/23/23 11:48 Pulse 73 03/23/23 11:48 Resp 15 03/23/23 11:48 BP 155/74 03/23/23 11:48 Pulse Ox 94 03/23/23 11:48 O2 Del Method Room Air 03/23/23 11:48 O2 Flow Rate 3 03/23/23 07:58 FiO2 30 03/19/23 11:24 03/22/23 03/23/23 03/23/23 22:59 06:59 14:59 Intake Total 300 / 350 300 / 650 50 / 50 Output Total 1300 / 1300 Balance 300 / 350 -1000 / -650 50 / 50 Weight last 48 hrs Weight 94.914 kg Weight 94.914 kg Physical Exam 2 Narrative: General exam is a white male, awake sitting up in chair Neck is supple, no lymphadenopathy, Cardiovascular regular rate and rhythm, no murmur Lungs diminished breath sounds at the bases Abdomen is soft. Active bowel sounds per auscultation. exam demonstrates Moreau Extremities noted to have 1 plus pitting edema bilateral lower extremities. Urinary Catheter Management: Moreau: Cath Placed During This Visit: yes Reason for Continuing Indwelling Catheter: Other Urinary Catheter Date of Insertion: 03/17/23 Urinary Catheter Time of Insertion: 06:00 Data 03/22/23 04:40 03/23/23 05:45 A&P Assessment and plan (1) Sepsis: Patient presents with sepsis. Multifactorial due to pneumonia and Pseudomonas UTI. Blood cultures negative to date Daily lab Qualifiers: Acute respiratory failure type: with hypoxia Sepsis acute organ dysfunction status: with acute organ dysfunction Sepsis type: sepsis due to unspecified organism Severe sepsis acute organ dysfunction type: acute respiratory failure Severe sepsis shock status: without septic shock Qualified Code(s): A41.9 - Sepsis, unspecified organism; R65.20 - Severe sepsis without septic shock; J96.01 - Acute respiratory failure with hypoxia (2) Urinary tract infection: Urine culture revealed Pseudomonas aeruginosa. We will continue IV Zosyn for coverage. Bacterial antigens negative. Qualifiers: Encounter type: initial encounter Indwelling urinary catheter type: i ndwelling urethral catheter Urinary tract infection type: catheter-associated UTI Qualified Code(s): T83.511A - Infection and inflammatory reaction due to indwelling urethral catheter, initial encounter; N39.0 - Urinary tract infection, site not specified (3) Acute hypoxic respiratory failure: Patient was intubated in the emergency department 03/17/23. Patient was extubated March 19. transition to nasal cannula. Tolerating well and appears in no respiratory distress at this time. Speech therapy eval appreciated Patient currently on Jevity 1.2 with a goal rate of 55 mL/h per RD. 150 mL free water flush every 6 hours. Scheduled Q6H breathing treatments. (4) Pneumonia: Continue IV antibiotics consisting of Zosyn, vancomycin Vancomycin trough within normal limits Sputum culture, pending. Blood culture, negative to date MRSA PCR negative COVID and flu negative Occasional low-grade temperature Qualifiers: Pneumonia type: due to unspecified organism (5) Parkinsons disease: Continue home medication, carbidopa levodopa. Qualifiers: Dyskinesia presence: unspecified whether dyskinesia Fluctuating manifestations: unspecified whether manifestations fluctuate Qualified Code(s): G20.A1 - Parkinson's disease without dyskinesia, without mention of fluctuations (6) Hypotension: Resolved Echocardiogram is done and showed normal EF, 1/4 diastolic dysfunction (7) Hypernatremia: (8) Hypokalemia: Plan Hypokalemia. Replace potassium Global weakness. Therapy consulted. Will need extensive therapy as an outpatient Allow natural Lovenox for DVT prophylaxis Protonix for GI prophylaxis Today's plan 03/24/2023 ? Recheck chest x-ray in a.m. White count elevated most likely patient reaspirated. I believe he is continuing to aspirate.Markedly decreased or resolved, prior, hazy opacities at left upper-mid lung. Unchanged consolidation at left lower lobe and stable, mild air-space opacities at right lower lung . ? Continue PEG feeds ? Continue free water flushes to 250 every 6 hours. Sodium 145 today. Potassium 4.0. Replete potassium. ? Patient did try to get up with physical therapy but slumped over on the sit to stand. PT to continue to work with patient. Family's goal is to get him over to rehab somehow. ? Had a conversation with family regarding patient's aspiration risk and him gurgling and rattling. Will place scopolamine patch on him today. ? Had a goals of care discussion, I also discussed the possibility of palliative care at this point. Family interested in speaking to palliative care and getting a consult for possible hospice? They would like all the info before deciding which way to go. ? Continue carbidopa-levodopa, meropenem, vancomycin at this time. Attestations 2 Medical Necessity Statement*: Needs continued hospitalization for IV antibiotics related to pneumonia Diagnoses Sepsis with acute hypoxic respiratory failure without septic shock, due to unspecified organism A41.9; R65.20; J96.01 Acute respiratory failure type: with hypoxia Sepsis acute organ dysfunction status: with acute organ dysfunction Sepsis type: sepsis due to unspecified organism Severe sepsis acute organ dysfunction type: acute respiratory failure Severe sepsis shock status: without septic shock Urinary tract infection associated with indwelling urethral catheter, initial encounter T83.511A; N39.0 Encounter type: initial encounter Indwelling urinary catheter type: indwelling urethral catheter Urinary tract infection type: catheter-associated UTI Acute hypoxic respiratory failure J96.01 Pneumonia J18.9 Pneumonia type: due to unspecified organism Parkinson's disease, unspecified whether dyskinesia present, unspecified whether manifestations fluctuate G20.A1 Dyskinesia presence: unspecified whether dyskinesia Fluctuating manifestations: unspecified whether manifestations fluctuate Hypotension I95.9 Hypernatremia E87.0 Hypokalemia E87.6
[2023-03-23] MEDS: scopolamine 1.5 Patch 1 PATCH TRANSDERMA (14:13)
[2023-03-23] MEDS: acetaminophen 325 mg Tablet 650 MG PO ×2 (15:41→21:05)
[2023-03-23] MEDS: PARoxetine 20 mg Tablet 40 MG PO (21:05)
[2023-03-24] VITALS (12 sets, daily range): BP systolic 158–179; BP diastolic 73–87; PULSE 62–78; RESP 16–20; TEMP 36.4–37.8; O2SAT 94–96
[2023-03-24] MEDS: vancomycin 1,250 MG/250 ML PIGGYBACK 250 MG IV ×2 (00:26→11:41)
[2023-03-24] MEDS: enoxaparin 40 mg/0.4 mL Syringe SUBCUT (00:26)
[2023-03-24] MEDS: pantoprazole 40 mg SDV IVP (00:40)
[2023-03-24] MEDS: ipratropium-albuterol 3 mL Neb INHALATION ×3 (02:51→14:36)
[2023-03-24 05:20] LABS: Basophils % 0.5 %; Eosinophils # 0.5 10^3/uL (0.0-0.8); Eosinophils % 5.9 %; Hematocrit 40.3 % (37-53); Lymphocytes # 1.5 10^3/uL (0.8-4.8); Mean Corpuscular Hemoglobin 27.4 pg (27-33); Mean Corpuscular Volume 85.6 fl (82-101); Mean Platelet Volume 10.6 fL (7.4-10.4); Monocytes # 0.6 10^3/uL (0.2-0.9); Monocytes % 7.7 %; Neutrophils # 5.13 10^3/uL (1.8-7.7); Neutrophils % 66.6 %; Nucleated Red Blood Cells % 0 %; Platelet Count 258 10^3/cmm (157-399); Red Blood Count 4.71 10^6/uL (3.85-5.65); Red Cell Distribution Width 15.2 % (12.1-15.1); White Blood Count 7.69 10^3/uL (3.29-11.43)
[2023-03-24 05:34] LABS: Anion Gap 12.8 (5-19); Blood Urea Nitrogen 19 mg/dL (8-23); Calcium 8.2 mg/dL (8.5-10.5); Carbon Dioxide 27 mmol/L (22-29); Chloride 110 mmol/L (98-107); Glucose 140 mg/dL (65-115); Magnesium 2.4 mg/dL (1.7-2.3); Osmolality Calculated 307 mOsm/kg (285-295); Potassium 3.8 mmol/L (3.5-5.1); Sodium 146 mmol/L (136-145)
[2023-03-24] MEDS: aspirin 81 mg Chew Tablet PEG-TUBE (09:25)
[2023-03-24] MEDS: acetaminophen 325 mg Tablet 650 MG PO (09:25)
[2023-03-24] MEDS: meropenem 1,000 MG in sodium chloride 0.9% (plus) 50 ML 100 MG IV ×3 (09:25→23:27)
[2023-03-24] MEDS: ropinirole 2 mg Tablet 3 MG PEG-TUBE ×3 (09:26→21:23)
[2023-03-24] MEDS: lisinopril 5 mg Tablet 10 MG PO (09:26)
[2023-03-24] MEDS: carbidopa-levodopa 25-100mg Tablet 1 EACH PEG-TUBE ×3 (09:27→21:24)
[2023-03-24] MEDS: artificial tears Op Soln 15 mL Btl 1 DROP EYE-BOTH ×2 (17:22→23:23)
[2023-03-24] MEDS: trazodone 50 mg Tablet PO ×2 (17:22→21:24)
[2023-03-24] MEDS: olopatadine 0.1% Op Soln 5 mL Btl 1 DROP EYE-BOTH (18:22)
[2023-03-24] MEDS: PARoxetine 20 mg Tablet 40 MG PO (21:24)
--- NOTE | 2023-03-24 22:51 | P.PN_ITS ---
Subjective 2 Subjective: laying in bed, able to answer simple questions ,such as how do you feel, etc. Extensive discussion with patients' toda with decision to move ahead with hospice care Medications: Reviewed: Yes Vitals/I&O/Wt Last Vital Signs Temp 99.9 F H 03/24/23 20:00 Pulse 67 03/24/23 20:00 Resp 16 03/24/23 20:00 BP 160/73 03/24/23 20:00 Pulse Ox 95 03/24/23 20:00 O2 Del Method Room Air 03/24/23 20:00 O2 Flow Rate 3 03/23/23 07:58 FiO2 30 03/19/23 11:24 03/24/23 03/24/23 03/24/23 06:59 14:59 22:59 Intake Total 300 / 650 50 / 50 300 / 350 Output Total 300 / 1050 800 / 800 Balance 0 / -400 50 / 50 -500 / -450 Weight last 48 hrs Weight 95.396 kg Weight 94.914 kg Physical Exam 2 Narrative: General: No acute distress, AO x1-2 HEENT: PERRLA, pupils bilaterally equal and reactive, pallors not present Chest: Normal vesicular breath sounds, no added sounds, equal good air entry bilaterally CVS: S1-S2 regular, no murmurs, no tachycardia, no gallops, no rubs Abdomen: Soft, nontender, no organomegaly, bowel sounds present Neuro: No focal deficits, no facial deformity, AO x1-2 , power 5/5 in all limbs Urinary Catheter Management: Bernardo: Cath Placed During This Visit: yes Reason for Continuing Indwelling Catheter: Other Urinary Catheter Date of Insertion: 03/17/23 Urinary Catheter Time of Insertion: 06:00 Data 03/24/23 04:46 03/24/23 04:46 A&P Assessment and plan (1) Sepsis: Patient presents with sepsis. Multifactorial due to pneumonia and Pseudomonas UTI. Blood cultures negative to date Daily lab Qualifiers: Acute respiratory failure type: with hypoxia Sepsis acute organ dysfunction status: with acute organ dysfunction Sepsis type: sepsis due to unspecified organism Severe sepsis acute organ dysfunction type: acute respiratory failure Severe sepsis shock status: without septic shock Qualified Code(s): A41.9 - Sepsis, unspecified organism; R65.20 - Severe sepsis without septic shock; J96.01 - Acute respiratory failure with hypoxia (2) Urinary tract infection: Urine culture revealed Pseudomonas aeruginosa. We will continue IV Zosyn for coverage. Bacterial antigens negative. Qualifiers: Encounter type: initial encounter Indwelling urinary catheter type: i ndwelling urethral catheter Urinary tract infection type: catheter-associated UTI Qualified Code(s): T83.511A - Infection and inflammatory reaction due to indwelling urethral catheter, initial encounter; N39.0 - Urinary tract infection, site not specified (3) Acute hypoxic respiratory failure: Patient was intubated in the emergency department 03/17/23. Patient was extubated March 19. transition to nasal cannula. Tolerating well and appears in no respiratory distress at this time. Speech therapy eval appreciated Patient currently on Jevity 1.2 with a goal rate of 55 mL/h per RD. 150 mL free water flush every 6 hours. Scheduled Q6H breathing treatments. (4) Pneumonia: Continue IV antibiotics consisting of Zosyn, vancomycin Vancomycin trough within normal limits Sputum culture, pending. Blood culture, negative to date MRSA PCR negative COVID and flu negative Occasional low-grade temperature Qualifiers: Pneumonia type: due to unspecified organism (5) Parkinsons disease: Continue home medication, carbidopa levodopa. Qualifiers: Dyskinesia presence: unspecified whether dyskinesia Fluctuating manifestations: unspecified whether manifestations fluctuate Qualified Code(s): G20.A1 - Parkinson's disease without dyskinesia, without mention of fluctuations (6) Hypotension: Resolved Echocardiogram is done and showed normal EF, 1/4 diastolic dysfunction (7) Hypernatremia: (8) Hypokalemia: Plan Hypokalemia. Replace potassium Global weakness. Therapy consulted. Will need extensive therapy as an outpatient Allow natural Lovenox for DVT prophylaxis Protonix for GI prophylaxis Today's plan 03/24/2023 ? Extensive GOC discussion with at bedside. Patient has had a progressive deline since 2022. 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 Patient used the PEG for a few months at LTAC and rehab but then was eventually cleared to start a modified diet which he had been taking until day of admission. The PEG was not being used however he was noted to be coughing in the days leading up to admission, so possible that he may have been aspirating at home. He has had a chronic indwelling Bernardo since the last year which is changed at home via home health. SPC placement declined as family does not wish to put him through more procedures. He has been on chronic suppression with Macrobid and Keflex for recurrent UTIs without much success. Currently he has a Psuedomonas UTI. Patient has had intermittent fever at home the past few months which has been variously attributed to pneumonia vs UTIs. He has additionally had a signifcant cognitive decline with advancing Parkinson's dementia. He is forgetful, intermittently hallucinates and cannot keep with conversations anymore. He has limited mobility, needs 2 person assist to ambulate with walker. Currently patient has aspiration pneumonia leading to hypoxic respiratory failure needing intubation earlier in the admission, he has Pseudomonas UTI, evidence of ongoing aspiration, he is exclusively on tube feeding, he continues to have daily intermittent fever in spite of being on appropriate cx guided abx. Discussed with that given persistence of fever, we need to look at potential persistent sources of infection including CT abdomen/pelvis to evaluate for hydronephrosis and CT chest to evaluate for possible empyema. Alternately, if goals at this time are to be comfortable and provide quality of life, then further investigations without plans for surgical or more aggressive medical interventions are likely not going to be helpful. His states that patient has previously expressed his wishes to value quality of life when it appears he may be nearing the end. She wishes to transition to hospice/ palliative measures and would like more information regarding home vs SNF hospice care. Will place referral and attempt to obtain consult with Dr. Mercedes tomorrow. Resume hoem doses of trazodone. Attestations 2 Medical Necessity Statement*: C discussion, hospice referral, discharge planning. Coding Level of Care Code Acute Code for [facility] Diagnoses Sepsis with acute hypoxic respiratory failure without septic shock, due to unspecified organism A41.9; R65.20; J96.01 Acute respiratory failure type: with hypoxia Sepsis acute organ dysfunction status: with acute organ dysfunction Sepsis type: sepsis due to unspecified organism Severe sepsis acute organ dysfunction type: acute respiratory failure Severe sepsis shock status: without septic shock Urinary tract infection associated with indwelling urethral catheter, initial encounter T83.511A; N39.0 Encounter type: initial encounter Indwelling urinary catheter type: indwelling urethral catheter Urinary tract infection type: catheter-associated UTI Acute hypoxic respiratory failure J96.01 Pneumonia J18.9 Pneumonia type: due to unspecified organism Parkinson's disease, unspecified whether dyskinesia present, unspecified whether manifestations fluctuate G20.A1 Dyskinesia presence: unspecified whether dyskinesia Fluctuating manifestations: unspecified whether manifestations fluctuate Hypotension I95.9 Hypernatremia E87.0 Hypokalemia E87.6
[2023-03-25] VITALS (15 sets, daily range): BP systolic 124–185; BP diastolic 67–87; PULSE 56–88; RESP 14–20; TEMP 36.4–38.8; O2SAT 91–96; BMI 25.0
[2023-03-25] MEDS: pantoprazole 40 mg SDV IVP (00:34)
[2023-03-25] MEDS: ipratropium-albuterol 3 mL Neb INHALATION ×4 (02:40→21:08)
[2023-03-25] MEDS: artificial tears Op Soln 15 mL Btl 1 DROP EYE-BOTH ×3 (05:13→17:01)
--- NOTE | 2023-03-25 07:33 | PC.OT ---
SKILLED OT DISCHARGED DUE TO PATIENT PLACED ON PALLIATIVE CARE/HOSPICE
[2023-03-25] MEDS: meropenem 1,000 MG in sodium chloride 0.9% (plus) 50 ML 100 MG IV (09:04)
[2023-03-25] MEDS: ropinirole 2 mg Tablet 3 MG PEG-TUBE ×3 (09:05→21:41)
[2023-03-25] MEDS: lisinopril 5 mg Tablet 10 MG PO (09:05)
[2023-03-25] MEDS: carbidopa-levodopa 25-100mg Tablet 1 EACH PEG-TUBE ×3 (09:05→21:41)
[2023-03-25] MEDS: aspirin 81 mg Chew Tablet PEG-TUBE (09:06)
[2023-03-25] MEDS: olopatadine 0.1% Op Soln 5 mL Btl 1 DROP EYE-BOTH ×2 (09:58→17:01)
--- NOTE | 2023-03-25 16:17 | PM.PN ---
Subjective Subjective: No acute interim events. Patient is awake, lying in bed, able to have a simple conversation. Tmax 99.9 Fahrenheit last 24 hours. Awaiting hospice nurse to discuss specifics of hospice care with patient's family to move ahead with goals of care. Medications: Reviewed: Yes Vitals/I&O/Wt Last Vital Signs Temp 98.8 F 03/25/23 13:03 Pulse 71 03/25/23 13:59 Resp 18 03/25/23 13:54 BP 154/80 03/25/23 13:03 Pulse Ox 96 03/25/23 13:54 O2 Del Method Nasal Cannula 03/25/23 13:54 O2 Flow Rate 3 03/23/23 07:58 FiO2 30 03/19/23 11:24 03/25/23 03/25/23 03/25/23 06:59 14:59 22:59 Intake Total 50 / 400 50 / 50 Output Total 400 / 1450 Balance -350 / -1050 50 / 50 Weight last 48 hrs Weight 93.468 kg Weight 95.396 kg Physical Exam Narrative: General: No acute distress, AO x 2 HEENT: PERRLA, pupils bilaterally equal and reactive, pallors not present Chest: Normal vesicular breath sounds, no added sounds, equal good air entry bilaterally CVS: S1-S2 regular, no murmurs, no tachycardia, no gallops, no rubs Abdomen: Soft, nontender, no organomegaly, bowel sounds present Neuro: No focal deficits, no facial deformity, AO x 2 , power 5/5 in all limbs Urinary Catheter Management: Bernardo: Cath Placed During This Visit: yes Reason for Continuing Indwelling Catheter: Other Urinary Catheter Date of Insertion: 03/17/23 Urinary Catheter Time of Insertion: 06:00 Data 03/24/23 04:46 03/24/23 04:46 A&P Assessment and plan (1) Sepsis: Patient presents with sepsis. Multifactorial due to pneumonia and Pseudomonas UTI. Blood cultures negative to date Daily lab Qualifiers: Acute respiratory failure type: with hypoxia Sepsis acute organ dysfunction status: with acute organ dysfunction Sepsis type: sepsis due to unspecified organism Severe sepsis acute organ dysfunction type: acute respiratory failure Severe sepsis shock status: without septic shock Qualified Code(s): A41.9 - Sepsis, unspecified organism; R65.20 - Severe sepsis without septic shock; J96. - Acute respiratory failure with hypoxia (2) Urinary tract infection: Urine culture revealed Pseudomonas aeruginosa. We will continue IV Zosyn for coverage. Bacterial antigens negative. Qualifiers: Encounter type: initial encounter Indwelling urinary catheter type: indwelling urethral catheter Urinary tract infection type: catheter-associated UTI Qualified Code(s): T83.511A - Infection and inflammatory reaction due to indwelling urethral catheter, initial encounter; N39.0 - Urinary tract infection, site not specified (3) Acute hypoxic respiratory failure: Patient was intubated in the emergency department 03/17/23. Patient was extubated March 19. transition to nasal cannula. Tolerating well and appears in no respiratory distress at this time. Speech therapy eval appreciated Patient currently on Jevity 1.2 with a goal rate of 55 mL/h per RD. 150 mL free water flush every 6 hours. Scheduled Q6H breathing treatments. (4) Pneumonia: Continue IV antibiotics consisting of Zosyn, vancomycin Vancomycin trough within normal limits Sputum culture, pending. Blood culture, negative to date MRSA PCR negative COVID and flu negative Occasional low-grade temperature Qualifiers: Pneumonia type: due to unspecified organism (5) Parkinsons disease: Continue home medication, carbidopa levodopa. Qualifiers: Dyskinesia presence: unspecified whether dyskinesia Fluctuating manifestations: unspecified whether manifestations fluctuate Qualified Code(s): G20.A1 - Parkinson's disease without dyskinesia, without mention of fluctuations (6) Hypotension: Resolved Echocardiogram is done and showed normal EF, 1/4 diastolic dysfunction (7) Hypernatremia: (8) Hypokalemia: Plan Hypokalemia. Replace potassium Global weakness. Therapy consulted. Will need extensive therapy as an outpatient Allow natural Lovenox for DVT prophylaxis Protonix for GI prophylaxis Today's plan 03/24/2023 ? Extensive GOC discussion with at bedside. Patient has had a progressive deline since 2022. 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 Patient used the PEG for a few months at LTAC and rehab but then was eventually cleared to start a modified diet which he had been taking until day of admission. The PEG was not being used however he was noted to be coughing in the days leading up to admission, so possible that he may have been aspirating at home. He has had a chronic indwelling Bernardo since the last year which is changed at home via home health. SPC placement declined as family does not wish to put him through more procedures. He has been on chronic suppression with Macrobid and Keflex for recurrent UTIs without much success. Currently he has a Psuedomonas UTI. Patient has had intermittent fever at home the past few months which has been variously attributed to pneumonia vs UTIs. He has additionally had a signifcant cognitive decline with advancing Parkinson's dementia. He is forgetful, intermittently hallucinates and cannot keep with conversations anymore. He has limited mobility, needs 2 person assist to ambulate with walker. Currently patient has aspiration pneumonia leading to hypoxic respiratory failure needing intubation earlier in the admission, he has Pseudomonas UTI, evidence of ongoing aspiration, he is exclusively on tube feeding, he continues to have daily intermittent fever in spite of being on appropriate cx guided abx. Discussed with that given persistence of fever, we need to look at potential persistent sources of infection including CT abdomen/pelvis to evaluate for hydronephrosis and CT chest to evaluate for possible empyema. Alternately, if goals at this time are to be comfortable and provide quality of life, then further investigations without plans for surgical or more aggressive medical interventions are likely not going to be helpful. His states that patient has previously expressed his wishes to value quality of life when it appears he may be nearing the end. She wishes to transition to hospice/ palliative measures and would like more information regarding home vs SNF hospice care. Will place referral and attempt to obtain consult with Dr. Mercedes tomorrow. Resume hoem doses of trazodone. Plan for today March 25, 2023. Awaiting hospice nurse to discuss with family. is waiting to decide transition to home hospice versus correction with hospice after this discussion. Labs have been discontinued in keeping with overall goals of comfort. Fosfomycin susceptibility requested from Pseudomonas isolate from March 16, 2022 to have potential oral options for future treatment as I expect Pseudomonas UTI to be a recurrent process going forward. Add glycopyrrolate for oral secretions. Vancomycin discontinued. Attestations Medical Necessity Statement*: Ongoing goals of care discussion, disposition planning. Coding Level of Care Code Acute Code for [facility] Diagnoses Sepsis with acute hypoxic respiratory failure without septic shock, due to unspecified organism A41.9; R65.20; J96.01 Acute respiratory failure type: with hypoxia Sepsis acute organ dysfunction status: with acute organ dysfunction Sepsis type: sepsis due to unspecified organism Severe sepsis acute organ dysfunction type: acute respiratory failure Severe sepsis shock status: without septic shock Urinary tract infection associated with indwelling urethral catheter, initial encounter T83.511A; N39.0 Encounter type: initial encounter Indwelling urinary catheter type: indwelling urethral catheter Urinary tract infection type: catheter-associated UTI Acute hypoxic respiratory failure J96.01 Pneumonia J18.9 Pneumonia type: due to unspecified organism Parkinson's disease, unspecified whether dyskinesia present, unspecified whether manifestations fluctuate G20.A1 Dyskinesia presence: unspecified whether dyskinesia Fluctuating manifestations: unspecified whether manifestations fluctuate Hypotension I95.9 Hypernatremia E87.0 Hypokalemia E87.6
--- NOTE | 2023-03-25 21:03 | PC.NURSE ---
Reported to this nurse that pt has an axilla temp of 101.9. Acetaminophen to be administered with evening medications.
[2023-03-25] MEDS: acetaminophen 325 mg Tablet 650 MG PO (21:41)
[2023-03-25] MEDS: PARoxetine 20 mg Tablet 40 MG PO (21:41)
[2023-03-25] MEDS: trazodone 50 mg Tablet PO (21:44)
[2023-03-25] MEDS: NON-FORMULARY MEDICATION (Melatonin 5 mg Tablet) 5 EACH PO (21:44)
[2023-03-26] VITALS (13 sets, daily range): BP systolic 113–176; BP diastolic 62–86; PULSE 61–83; RESP 16–20; TEMP 36.6–37.8; O2SAT 90–98
[2023-03-26] MEDS: artificial tears Op Soln 15 mL Btl 1 DROP EYE-BOTH ×5 (00:03→23:35)
[2023-03-26] MEDS: ipratropium-albuterol 3 mL Neb INHALATION ×3 (07:42→20:29)
[2023-03-26] MEDS: ropinirole 2 mg Tablet 3 MG PEG-TUBE ×3 (08:18→21:02)
[2023-03-26] MEDS: olopatadine 0.1% Op Soln 5 mL Btl 1 DROP EYE-BOTH ×2 (08:18→17:07)
[2023-03-26] MEDS: aspirin 81 mg Chew Tablet PEG-TUBE (08:19)
[2023-03-26] MEDS: lisinopril 5 mg Tablet 10 MG PO (08:19)
[2023-03-26] MEDS: carbidopa-levodopa 25-100mg Tablet 1 EACH PEG-TUBE ×3 (08:19→21:02)
--- NOTE | 2023-03-26 08:41 | PC.NUTR ---
bolus EN feeding regimen: Jevity 1.2 @300 ml q6 (1200 ml total volume/day) with 150 ml q6 FWF
--- NOTE | 2023-03-26 11:18 | PC.NURSE ---
Info provided to pt on [employer].
--- NOTE | 2023-03-26 17:32 | PM.PN ---
Subjective Subjective: No acute interim events. Patient's has made the decision to transition to home hospice. Patient lost IV access, he has completed a course of antibiotics therefore these have not been attempted to be replaced. Medications: Reviewed: Yes Vitals/I&O/Wt Last Vital Signs Temp 98.1 F 03/26/23 12:00 Pulse 78 03/26/23 14:36 Resp 16 03/26/23 13:14 BP 113/80 03/26/23 12:00 Pulse Ox 95 03/26/23 13:14 O2 Del Method Room Air 03/26/23 13:14 O2 Flow Rate 3 03/23/23 07:58 FiO2 30 03/19/23 11:24 03/26/23 03/26/23 03/26/23 06:59 14:59 22:59 Intake Total 690 / 690 Output Total 850 / 850 Balance -850 / -350 690 / 690 Weight last 48 hrs Weight 92.487 kg Weight 93.468 kg Physical Exam Narrative: General: No acute distress,lethargic , AO x 2 HEENT: PERRLA, pupils bilaterally equal and reactive, pallors not present Chest: Normal vesicular breath sounds, no added sounds, equal good air entry bilaterally CVS: S1-S2 regular, no murmurs, no tachycardia, no gallops, no rubs Abdomen: Soft, nontender, no organomegaly, bowel sounds present Neuro: No focal deficits, no facial deformity, AO x 2 , power 5/5 in all limbs Urinary Catheter Management: Bernardo: Cath Placed During This Visit: yes Reason for Continuing Indwelling Catheter: Chronic Indwelling Urinary Catheter on Admission Urinary Catheter Date of Insertion: 03/17/23 Urinary Catheter Time of Insertion: 06:00 Data 03/24/23 04:46 03/24/23 04:46 A&P Assessment and plan (1) Sepsis: Patient presents with sepsis. Multifactorial due to pneumonia and Pseudomonas UTI. Blood cultures negative to date Daily lab Qualifiers: Acute respiratory failure type: with hypoxia Sepsis acute organ dysfunction status: with acute organ dysfunction Sepsis type: sepsis due to unspecified organism Severe sepsis acute organ dysfunction type: acute respiratory failure Severe sepsis shock status: without septic shock Qualified Code(s): A41.9 - Sepsis, unspecified organism; R65.20 - Severe sepsis without septic shock; J96.01 - Acute respiratory failure with hypoxia (2) Urinary tract infection: Urine culture revealed Pseudomonas aeruginosa. We will continue IV Zosyn for coverage. Bacterial antigens negative. Qualifiers: Encounter type: initial encounter Indwelling urinary catheter type: indwelling urethral catheter Urinary tract infection type: catheter-associated UTI Qualified Code(s): T83.511A - Infection and inflammatory reaction due to indwelling urethral catheter, initial encounter; N39.0 - Urinary tract infection, site not specified (3) Acute hypoxic respiratory failure: Patient was intubated in the emergency department 03/17/23. Patient was extubated March 19. transition to nasal cannula. Tolerating well and appears in no respiratory distress at this time. Speech therapy eval appreciated Patient currently on Jevity 1.2 with a goal rate of 55 mL/h per RD. 150 mL free water flush every 6 hours. Scheduled Q6H breathing treatments. (4) Pneumonia: Continue IV antibiotics consisting of Zosyn, vancomycin Vancomycin trough within normal limits Sputum culture, pending. Blood culture, negative to date MRSA PCR negative COVID and flu negative Occasional low-grade temperature Qualifiers: Pneumonia type: due to unspecified organism (5) Parkinsons disease: Continue home medication, carbidopa levodopa. Qualifiers: Dyskinesia presence: unspecified whether dyskinesia Fluctuating manifestations: unspecified whether manifestations fluctuate Qualified Code(s): G20.A1 - Parkinson's disease without dyskinesia, without mention of fluctuations (6) Hypotension: Resolved Echocardiogram is done and showed normal EF, 1/4 diastolic dysfunction (7) Hypernatremia: (8) Hypokalemia: Plan Hypokalemia. Replace potassium Global weakness. Therapy consulted. Will need extensive therapy as an outpatient Allow natural Lovenox for DVT prophylaxis Protonix for GI prophylaxis Today's plan 03/24/2023 ? Extensive GOC discussion with at bedside. Patient has had a progressive deline since May/June of 2022. 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 Patient used the PEG for a few months at LTAC and rehab but then was eventually cleared to start a modified diet which he had been taking until day of admission. The PEG was not being used however he was noted to be coughing in the days leading up to admission, so possible that he may have been aspirating at home. He has had a chronic indwelling Bernardo since the last year which is changed at home via home health. SPC placement declined as family does not wish to put him through more procedures. He has been on chronic suppression with Macrobid and Keflex for recurrent UTIs without much success. Currently he has a Psuedomonas UTI. Patient has had intermittent fever at home the past few months which has been variously attributed to pneumonia vs UTIs. He has additionally had a signifcant cognitive decline with advancing Parkinson's dementia. He is forgetful, intermittently hallucinates and cannot keep with conversations anymore. He has limited mobility, needs 2 person assist to ambulate with walker. Currently patient has aspiration pneumonia leading to hypoxic respiratory failure needing intubation earlier in the admission, he has Pseudomonas UTI, evidence of ongoing aspiration, he is exclusively on tube feeding, he continues to have daily intermittent fever in spite of being on appropriate cx guided abx. Discussed with that given persistence of fever, we need to look at potential persistent sources of infection including CT abdomen/pelvis to evaluate for hydronephrosis and CT chest to evaluate for possible empyema. Alternately, if goals at this time are to be comfortable and provide quality of life, then further investigations without plans for surgical or more aggressive medical interventions are likely not going to be helpful. His states that patient has previously expressed his wishes to value quality of life when it appears he may be nearing the end. She wishes to transition to hospice/ palliative measures and would like more information regarding home vs SNF hospice care. Will place referral and attempt to obtain consult with Dr. Mercedes tomorrow. Resume hoem doses of trazodone. Plan for today March 25, 2023. Awaiting hospice nurse to discuss with family. is waiting to decide transition to home hospice versus retirement with hospice after this discussion. Labs have been discontinued in keeping with overall goals of comfort. Fosfomycin susceptibility requested from Pseudomonas isolate from March 16, 2022 to have potential oral options for future treatment as I expect Pseudomonas UTI to be a recurrent process going forward. Add glycopyrrolate for oral secretions. Vancomycin discontinued. Plan for today March 26, 2023. Patient's has made the decision to transition to home with hospice. She has chosen [facility] for the same. We are awaiting hospice to set up his home to be able to receive him for appropriate care. Meropenem was discontinued. Patient has lost IV access, 1 will not be replaced in keeping with his overall goals of hospice/comfort management. Unable to get fosfomycin susceptibilities as we are out of E test test trips. Attestations Medical Necessity Statement*: Hospice care, awaiting transition to home with hospice, appropriate disposition planning Coding Level of Care Code Acute Code for Chg Fwd Diagnoses Sepsis with acute hypoxic respiratory failure without septic shock, due to unspecified organism A41.9; R65.20; J96.01 Acute respiratory failure type: with hypoxia Sepsis acute organ dysfunction status: with acute organ dysfunction Sepsis type: sepsis due to unspecified organism Severe sepsis acute organ dysfunction type: acute respiratory failure Severe sepsis shock status: without septic shock Urinary tract infection associated with indwelling urethral catheter, initial encounter T83.511A; N39.0 Encounter type: initial encounter Indwelling urinary catheter type: indwelling urethral catheter Urinary tract infection type: catheter-associated UTI Acute hypoxic respiratory failure J96.01 Pneumonia J18.9 Pneumonia type: due to unspecified organism Parkinson's disease, unspecified whether dyskinesia present, unspecified whether manifestations fluctuate G20.A1 Dyskinesia presence: unspecified whether dyskinesia Fluctuating manifestations: unspecified whether manifestations fluctuate Hypotension I95.9 Hypernatremia E87.0 Hypokalemia E87.6
[2023-03-26] MEDS: trazodone 50 mg Tablet PO (21:02)
[2023-03-26] MEDS: PARoxetine 20 mg Tablet 40 MG PO (21:02)
[2023-03-26] MEDS: NON-FORMULARY MEDICATION (Melatonin 5 mg Tablet) 5 EACH PO (21:03)
[2023-03-27] VITALS (11 sets, daily range): BP systolic 144–189; BP diastolic 71–90; PULSE 59–79; RESP 17–189; TEMP 36.4–37.4; O2SAT 94–98
[2023-03-27] MEDS: ipratropium-albuterol 3 mL Neb INHALATION ×4 (02:56→20:34)
[2023-03-27] MEDS: artificial tears Op Soln 15 mL Btl 1 DROP EYE-BOTH ×2 (07:33→17:31)
[2023-03-27] MEDS: olopatadine 0.1% Op Soln 5 mL Btl 1 DROP EYE-BOTH ×2 (07:33→17:31)
[2023-03-27] MEDS: lisinopril 5 mg Tablet 10 MG PO (07:34)
[2023-03-27] MEDS: aspirin 81 mg Chew Tablet PEG-TUBE (07:35)
[2023-03-27] MEDS: carbidopa-levodopa 25-100mg Tablet 1 EACH PEG-TUBE ×3 (07:35→21:41)
[2023-03-27] MEDS: ropinirole 2 mg Tablet 3 MG PEG-TUBE ×3 (07:35→21:41)
--- NOTE | 2023-03-27 12:16 | PM.PN ---
Subjective Subjective: No acute interim events. Patient accepted by hospice, Will be admitted to the home hospice service on Friday.(Today is ) Medications: Reviewed: Yes Vitals/I&O/Wt Last Vital Signs Temp 98 F 03/27/23 08:00 Pulse 77 03/27/23 09:13 Resp 189 H 03/27/23 09:02 BP 159/75 03/27/23 08:00 Pulse Ox 98 03/27/23 09:02 O2 Del Method Room Air 03/27/23 09:02 O2 Flow Rate 3 03/23/23 07:58 FiO2 30 03/19/23 11:24 03/26/23 03/27/23 03/27/23 22:59 06:59 14:59 Intake Total 450 / 1140 450 / 1590 Output Total 1300 / 1300 600 / 1900 Balance -850 / -160 -150 / -310 Weight last 48 hrs Weight 91.371 kg Weight 92.487 kg Physical Exam Narrative: General: No acute distress, AO x1-2 Overall patient is comfortable, no new needs. Urinary Catheter Management: Bernardo: Cath Placed During This Visit: yes Reason for Continuing Indwelling Catheter: Chronic Indwelling Urinary Catheter on Admission Urinary Catheter Date of Insertion: 03/17/23 Urinary Catheter Time of Insertion: 06:00 Data 03/24/23 04:46 03/24/23 04:46 A&P Assessment and plan (1) Sepsis: Patient presents with sepsis. Multifactorial due to pneumonia and Pseudomonas UTI. Blood cultures negative to date Daily lab Qualifiers: Acute respiratory failure type: with hypoxia Sepsis acute organ dysfunction status: with acute organ dysfunction Sepsis type: sepsis due to unspecified organism Severe sepsis acute organ dysfunction type: acute respiratory failure Severe sepsis shock status: without septic shock Qualified Code(s): A41.9 - Sepsis, unspecified organism; R65.20 - Severe sepsis without septic shock; J96.01 - Acute respiratory failure with hypoxia (2) Urinary tract infection: Urine culture revealed Pseudomonas aeruginosa. We will continue IV Zosyn for coverage. Bacterial antigens negative. Qualifiers: Encounter type: initial encounter Indwelling urinary catheter type: indwelling urethral catheter Urinary tract infection type: catheter-associated UTI Qualified Code(s): T83.511A - Infection and inflammatory reaction due to indwelling urethral catheter, initial encounter; N39.0 - Urinary tract infection, site not specified (3) Acute hypoxic respiratory failure: Patient was intubated in the emergency department 03/17/23. Patient was extubated March 19. transition to nasal cannula. Tolerating well and appears in no respiratory distress at this time. Speech therapy eval appreciated Patient currently on Jevity 1.2 with a goal rate of 55 mL/h per RD. 150 mL free water flush every 6 hours. Scheduled Q6H breathing treatments. (4) Pneumonia: Continue IV antibiotics consisting of Zosyn, vancomycin Vancomycin trough within normal limits Sputum culture, pending. Blood culture, negative to date MRSA PCR negative COVID and flu negative Occasional low-grade temperature Qualifiers: Pneumonia type: due to unspecified organism (5) Parkinsons disease: Continue home medication, carbidopa levodopa. Qualifiers: Dyskinesia presence: unspecified whether dyskinesia Fluctuating manifestations: unspecified whether manifestations fluctuate Qualified Code(s): G20.A1 - Parkinson's disease without dyskinesia, without mention of fluctuations (6) Hypotension: Resolved Echocardiogram is done and showed normal EF, 1/4 diastolic dysfunction (7) Hypernatremia: (8) Hypokalemia: Plan Hypokalemia. Replace potassium Global weakness. Therapy consulted. Will need extensive therapy as an outpatient Allow natural Lovenox for DVT prophylaxis Protonix for GI prophylaxis Today's plan 03/24/2023 ? Extensive GOC discussion with at bedside. Patient has had a progressive deline since May/June of 2022. 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 Patient used the PEG for a few months at LTAC and rehab but then was eventually cleared to start a modified diet which he had been taking until day of admission. The PEG was not being used however he was noted to be coughing in the days leading up to admission, so possible that he may have been aspirating at home. He has had a chronic indwelling Bernardo since the last year which is changed at home via home health. SPC placement declined as family does not wish to put him through more procedures. He has been on chronic suppression with Macrobid and Keflex for recurrent UTIs without much success. Currently he has a Psuedomonas UTI. Patient has had intermittent fever at home the past few months which has been variously attributed to pneumonia vs UTIs. He has additionally had a signifcant cognitive decline with advancing Parkinson's dementia. He is forgetful, intermittently hallucinates and cannot keep with conversations anymore. He has limited mobility, needs 2 person assist to ambulate with walker. Currently patient has aspiration pneumonia leading to hypoxic respiratory failure needing intubation earlier in the admission, he has Pseudomonas UTI, evidence of ongoing aspiration, he is exclusively on tube feeding, he continues to have daily intermittent fever in spite of being on appropriate cx guided abx. Discussed with that given persistence of fever, we need to look at potential persistent sources of infection including CT abdomen/pelvis to evaluate for hydronephrosis and CT chest to evaluate for possible empyema. Alternately, if goals at this time are to be comfortable and provide quality of life, then further investigations without plans for surgical or more aggressive medical interventions are likely not going to be helpful. His states that patient has previously expressed his wishes to value quality of life when it appears he may be nearing the end. She wishes to transition to hospice/ palliative measures and would like more information regarding home vs SNF hospice care. Will place referral and attempt to obtain consult with Dr. Mercedes tomorrow. Resume hoem doses of trazodone. Plan for today March 25, 2023. Awaiting hospice nurse to discuss with family. is waiting to decide transition to home hospice versus long term with hospice after this discussion. Labs have been discontinued in keeping with overall goals of comfort. Fosfomycin susceptibility requested from Pseudomonas isolate from March 16, 2022 to have potential oral options for future treatment as I expect Pseudomonas UTI to be a recurrent process going forward. Add glycopyrrolate for oral secretions. Vancomycin discontinued. Plan for today March 26, 2023. Patient's has made the decision to transition to home with hospice. She has chosen [facility] for the same. We are awaiting hospice to set up his home to be able to receive him for appropriate care. Meropenem was discontinued. Patient has lost IV access, 1 will not be replaced in keeping with his overall goals of hospice/comfort management. Unable to get fosfomycin susceptibilities as lab out of E test test trips, not expected to be back in stock any time soon. Reference lab does not run this test for Pseudomonas isolates Plan for today March 27, 2023. Awaiting appropriate disposition. Patient is planned to be discharged on Friday with [facility] hospice. Hospice company is able to admit him to their service on Friday. Until then patient to get hospice/comfort management in the hospital. Attestations Medical Necessity Statement*: continued admission for comfort management, disposition planning Coding Level of Care Code Acute Code for Chg Fwd Diagnoses Sepsis with acute hypoxic respiratory failure without septic shock, due to unspecified organism A41.9; R65.20; J96.01 Acute respiratory failure type: with hypoxia Sepsis acute organ dysfunction status: with acute organ dysfunction Sepsis type: sepsis due to unspecified organism Severe sepsis acute organ dysfunction type: acute respiratory failure Severe sepsis shock status: without septic shock Urinary tract infection associated with indwelling urethral catheter, initial encounter T83.511A; N39.0 Encounter type: initial encounter Indwelling urinary catheter type: indwelling urethral catheter Urinary tract infection type: catheter-associated UTI Acute hypoxic respiratory failure J96.01 Pneumonia J18.9 Pneumonia type: due to unspecified organism Parkinson's disease, unspecified whether dyskinesia present, unspecified whether manifestations fluctuate G20.A1 Dyskinesia presence: unspecified whether dyskinesia Fluctuating manifestations: unspecified whether manifestations fluctuate Hypotension I95.9 Hypernatremia E87.0 Hypokalemia E87.6
[2023-03-27] MEDS: trazodone 50 mg Tablet PO (21:41)
[2023-03-27] MEDS: PARoxetine 20 mg Tablet 40 MG PO (21:41)
[2023-03-28] VITALS: BP 129/67; PULSE 64; RESP 19; TEMP 36.4; O2SAT 94
[2023-03-28 04:00] VITALS: BP 169/86; PULSE 66; RESP 18; TEMP 36.4; O2SAT 97
[2023-03-28 07:56] VITALS: BP 166/79; PULSE 64; RESP 16; TEMP 36.3; O2SAT 96
[2023-03-28 08:26] VITALS: PULSE 69; RESP 18; O2SAT 96
[2023-03-28] MEDS: ipratropium-albuterol 3 mL Neb INHALATION (08:26)
[2023-03-28] MEDS: aspirin 81 mg Chew Tablet PEG-TUBE (09:51)
[2023-03-28] MEDS: lisinopril 5 mg Tablet 10 MG PO (09:52)
[2023-03-28] MEDS: carbidopa-levodopa 25-100mg Tablet 1 EACH PEG-TUBE (09:52)
[2023-03-28] MEDS: ropinirole 2 mg Tablet 3 MG PEG-TUBE (09:52)
[2023-03-28] MEDS: olopatadine 0.1% Op Soln 5 mL Btl 1 DROP EYE-BOTH (09:54)
[2023-03-28] MEDS: artificial tears Op Soln 15 mL Btl 1 DROP EYE-BOTH (11:33)
[2023-03-28 11:58] VITALS: BP 160/81; PULSE 63; RESP 18; TEMP 37; O2SAT 95
--- NOTE | 2023-03-28 12:30 | PC.NURSE ---
Discharge order was put in at 1034. Patient is awating PCS ride.
--- NOTE | 2023-03-28 12:59 | PC.NURSE ---
Called for EMS at this time.
--- NOTE | 2023-03-28 13:24 | PC.NURSE ---
Medications called into [facility] pharmacy at this time.
[2023-03-28 13:49] VITALS: BP 160/81; PULSE 63; RESP 18; TEMP 37; O2SAT 95
--- NOTE | 2023-03-28 14:46 | PM.DCS ---
Discharge Providers Date of Admission: 03/16/23 23:22 Date of Discharge: March 28, 2023 Attending Provider at Admission: Justin Santoyo MD Attending Provider at Discharge: Krysta Davis MD Primary Care Provider: Maxim Wang MD Diagnoses at Discharge Discharge Diagnosis (1) Sepsis: Status: Acute Qualifiers: Acute respiratory failure type: with hypoxia Sepsis acute organ dysfunction status: with acute organ dysfunction Sepsis type: sepsis due to unspecified organism Severe sepsis acute organ dysfunction type: acute respiratory failure Severe sepsis shock status: without septic shock Qualified Code(s): A41.9 - Sepsis, unspecified organism; R65.20 - Severe sepsis without septic shock; J96.01 - Acute respiratory failure with hypoxia (2) Urinary tract infection: Status: Acute Qualifiers: Encounter type: initial encounter Indwelling urinary catheter type: indwelling urethral catheter Urinary tract infection type: catheter-associated UTI Qualified Code(s): T83.511A - Infection and inflammatory reaction due to indwelling urethral catheter, initial encounter; N39.0 - Urinary tract infection, site not specified (3) Acute hypoxic respiratory failure: Status: Acute (4) Pneumonia: Status: Acute Qualifiers: Pneumonia type: due to unspecified organism (5) Parkinsons disease: Status: Acute Qualifiers: Dyskinesia presence: unspecified whether dyskinesia Fluctuating manifestations: unspecified whether manifestations fluctuate Qualified Code(s): G20.A1 - Parkinson's disease without dyskinesia, without mention of fluctuations (6) Hypotension: Status: Acute (7) Hypernatremia: Status: Acute (8) Hypokalemia: Status: Acute Reason for Visit Reason for Visit: WEAKNESS Brief History: Naun Schneider is a 82 year old male with a past medical history significant for Parkinson's disease, atrial fibrillation, diastolic dysfunction, and hypertension who presents to the emergency department with respiratory distress. Patient was intubated upon arrival due to respiratory distress. He was found to have pneumonia. He was eventually able to be extubated on March 19, 2023, remained on supplemental oxygen for a while afterwards but then was able to be transition to room air. He was also diagnosed with a Pseudomonas UTI likely related to a chronic indwelling Bernardo catheter during course of admission. He was treated with an extended course of IV antibiotics with meropenem and vancomycin. More detailed hospital course as below. Hospital Course Hospital Course Extensive and multiple GOC discussion were held with his at bedside. Patient has had a progressive deline since 2022. 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 Patient used the PEG for a few months at LTAC and rehab but then was eventually cleared to start a modified diet which he had been taking until day of admission. The PEG was not being used however he was noted to be coughing in the days leading up to admission, so possible that he may have been aspirating at home. He has had a chronic indwelling Bernardo since last year which is changed at home via home health. SPC placement was declined as family does not wish to put him through more procedures. He has been on chronic suppression with Macrobid and Keflex for recurrent UTIs without much success. Currently he has a Psuedomonas UTI. Patient has had intermittent fever at home the past few months which has been variously attributed to pneumonia vs UTIs. He has additionally had a signifcant cognitive decline with advancing Parkinson's dementia. He is forgetful, intermittently hallucinates and cannot keep with conversations anymore. He has limited mobility, needs 2 person assist to ambulate with walker. Currently patient has aspiration pneumonia leading to hypoxic respiratory failure needing intubation earlier in the admission, he has Pseudomonas UTI, evidence of ongoing aspiration, he is exclusively on tube feeding, he continues to have daily intermittent fever for most of the admission in keeping with in spite of being on appropriate cx guided abx. Discussed with that given persistence of fever, we need to look at potential persistent sources of infection including CT abdomen/pelvis to evaluate for hydronephrosis and CT chest to evaluate for possible empyema. Alternately, if goals at this time are to be comfortable and provide quality of life, then further investigations without plans for surgical or more aggressive medical interventions are likely not going to be helpful. His states that patient has previously expressed his wishes to value quality of life when it appears he may be nearing the end. In keeping with overall goals of comfort towards end-of-life, patient was transition to hospice care at home. Patient's chose [facility] and arrangements were made at home to receive patient today. Physical Exam Narrative: General: No acute distress, AO x1 HEENT: PERRLA, pupils bilaterally equal and reactive, pallors not present Detailed exam not performed to allow for patient comfort. Urinary Catheter Management: Bernardo: Cath Placed During This Visit: yes Reason for Continuing Indwelling Catheter: Chronic Indwelling Urinary Catheter on Admission Urinary Catheter Date of Insertion: 03/17/23 Urinary Catheter Time of Insertion: 06:00 Discharge Data Studies Completed and Pending Completed Studies During Hospitalization Category Date Time Status CT angio chest PE protcl [id number] Urgent Cat Scan 03/17/23 00:[address] head wo con* [id number] Stat Cat Scan 03/16/23 21:15 Completed CXRP [XR chest 1V portable [id number]] Routine Exams 03/17/23 06:00 Completed XR chest 1V portable [id number] Routine Exams 03/18/23 07:00 Completed XR chest 1V portable [id number] Routine Exams 03/19/23 07:00 Completed XR chest 1V portable [id number] Routine Exams 03/22/23 14:53 Completed XR chest 1V portable [id number] Stat Exams 03/16/23 21:15 Completed Blood Cultures ([facility]) Routine Lab 03/16/23 22:47 Completed Blood Cultures ([facility]) Routine Lab 03/16/23 22:54 Completed CV. echo complete* [id number] Routine Ultrasound 03/17/23 07:46 Completed US renal BI* [id number] Routine Ultrasound 03/17/23 07:46 Completed Radiology Impressions Head CT 03/16/23 21:15 IMPRESSION: Negative for intracranial hemorrhage or mass effect. Chest CTA 03/17/23 00:17 IMPRESSION: 1. No evidence of PE. 2. Large heart with scattered hazy areas of atelectasis, edema or developing pneumonia with [id number]-[id number]-[id number]-right areas of bibasilar consolidation. 3. Lines and tubes in place as discussed. 4. Other findings above. Recommend three-month follow-up. Chest X-Ray 03/22/23 14:53 IMPRESSION: 1. Markedly decreased or resolved, prior, hazy opacities at left upper-mid lung. Unchanged consolidation at left lower lobe and stable, mild air-space opacities at right lower lung . 2. Persistent, upper limit of normal sized heart. Atherosclerosis. Laboratory Results WBC 7.69 10^3/uL (3.29-11.43) 03/24/23 04:46 RBC 4.71 10^6/uL (3.85-5.65) 03/24/23 04:46 Hgb 12.90 g/dL (11.27-16.99) 03/24/23 04:46 Hct 40.3 % (37-53) 03/24/23 04:46 MCV 85.6 fl (82-101) 03/24/23 04:46 MCH 27.4 pg (27-33) 03/24/23 04:46 MCHC 32.0 g/dL (30-55) 03/24/23 04:46 RDW 15.2 % (12.1-15.1) H 03/24/23 04:46 Plt Count 258 10^3/cmm (157-399) 03/24/23 04:46 MPV 10.6 fL (7.4-10.4) H 03/24/23 04:46 Neut % (Auto) 66.6 % 03/24/23 04:46 Lymph % (Auto) 19.0 % 03/24/23 04:46 Logan % (Auto) 7.7 % 03/24/23 04:46 Eos % (Auto) 5.9 % 03/24/23 04:46 Baso % (Auto) 0.5 % 03/24/23 04:46 Neut # (Auto) 5.13 10^3/uL (1.8-7.7) 03/24/23 04:46 Lymph # (Auto) 1.5 10^3/uL (0.8-4.8) 03/24/23 04:46 Logan # (Auto) 0.6 10^3/uL (0.2-0.9) 03/24/23 04:46 Eos # (Auto) 0.5 10^3/uL (0.0-0.8) 03/24/23 04:46 Baso # (Auto) 0.0 10^3/uL (0.0-0.1) 03/24/23 04:46 Nucleated RBC % (auto) 0 % 03/24/23 04:46 Nucleated RBCs # 0.0 /100WBC 03/24/23 04:46 PT 14.70 SECONDS (12.1-14.9) 03/16/23 21:35 INR 1.11 (0.8-1.2) 03/16/23 21:35 APTT 27.1 SECONDS (23.9-36.7) 03/16/23 21:35 D-Dimer 2.12 ug/mLFEU (0-0.59) H 03/16/23 20:23 Specimen Type Arterial 03/19/23 04:25 Sample Site Brachial, right 03/19/23 04:25 ABG pH 7.37 (7.35-7.45) 03/19/23 04:25 ABG pCO2 47.3 mmHg (35-45) H 03/19/23 04:25 ABG pO2 95.2 mmHg (80.0-100.0) 03/19/23 04:25 ABG PO2/FiO2 Ratio 0 03/19/23 04:25 ABG HCO3 27.0 mmol/L (22-26) H 03/19/23 04:25 ABG Base Excess 1.1 mmol/L (-2.0-2.0) 03/19/23 04:25 Ruben Test Pos 03/19/23 04:25 Hematocrit 35.9 % (42-52) L 03/19/23 04:25 O2 Delivery Device Vent 03/19/23 04:25 Mechanical Rate 14.0 03/16/23 21:45 FiO2 30.0 % 03/19/23 04:25 Tidal Volume 0.50 03/19/23 04:25 PEEP 8.0 cmH20 03/19/23 04:25 Car Pilot ID [email or web address] 03/19/23 04:25 Sodium 146 mmol/L (136-145) H 03/24/23 04:46 Potassium 3.8 mmol/L (3.5-5.1) 03/24/23 04:46 Chloride 110 mmol/L (98-107) H 03/24/23 04:46 Carbon Dioxide 27 mmol/L (22-29) 03/24/23 04:46 Anion Gap 12.8 (5-19) 03/24/23 04:46 BUN 19 mg/dL (8-23) 03/24/23 04:46 Creatinine 0.5 mg/dL (0.7-1.2) L 03/24/23 04:46 GFR Calculation Not Reportable 03/24/23 04:46 Glucose 140 mg/dL (65-115) H 03/24/23 04:46 Estimat Average Glucose 100 03/17/23 02:19 Hemoglobin A1c 5.1 % (4.0-6.0) 03/17/23 02:19 Calculated Osmolality 307 mOsm/kg (285-295) H 03/24/23 04:46 Lactic Acid 2.7 mmol/L (0.5-2.2) H 03/16/23 22:47 Lactic Acid (Sepsis) 2.3 mmol/L (0.5-2.2) H 03/17/23 02:19 Calcium 8.2 mg/dL (8.5-10.5) L 03/24/23 04:46 Phosphorus 2.3 mg/dL (2.5-4.5) L 03/23/23 05:45 Magnesium 2.4 mg/dL (1.7-2.3) H 03/24/23 04:46 Total Bilirubin 0.6 mg/dL (0.15-1.2) 03/22/23 04:40 AST 92 U/L (0-40) H 03/22/23 04:40 ALT 50 U/L (0-41) H 03/22/23 04:40 Alkaline Phosphatase 73 U/L (40-130) 03/22/23 04:40 Troponin T 5th Gen ng/L 21 ng/L (0-15) H 03/17/23 02:19 C-Reactive Protein 3.0 mg/L (0.0-4.9) 03/16/23 21:35 NT-Pro-B Natriuret Pep 910 pg/mL (0-450) H 03/16/23 21:35 Total Protein 6.4 g/dL (6.6-8.7) L 03/22/23 04:40 Albumin 3.4 g/dL (3.5-5.2) L 03/22/23 04:40 Globulin 3.0 g/dL (1.3-4.6) 03/22/23 04:40 Procalcitonin 3.48 ng/mL (0-0.5) H 03/17/23 02:19 TSH 1.52 uIU/mL (0.27-4.20) 03/17/23 02:19 Urine Color Brown (Yellow) A 03/16/23 21:15 Urine Appearance Cloudy (CLEAR) A 03/16/23 21:15 Urine pH 5 (5-7) 03/16/23 21:15 Ur Specific [place] 1.030 (1.005-1.030) 03/16/23 21:15 Urine Protein 2+ (Negative) H 03/16/23 21:15 Urine Glucose (UA) 2+ (Normal) H 03/16/23 21:15 Urine Ketones 2+ (Negative) H 03/16/23 21:15 Urine Blood 3+ (Negative) H 03/16/23 21:15 Urine Nitrate Positive (Negative) H 03/16/23 21:15 Urine Bilirubin 1+ (Negative) H 03/16/23 21:15 Urine Urobilinogen Norm mg/dL (Negative) 03/16/23 21:15 Ur Leukocyte Esterase 2+ (Negative) H 03/16/23 21:15 Urine RBC 15-25 /hpf (0-2) H 03/16/23 21:15 Urine WBC 55-80 /hpf (0-5) H 03/16/23 21:15 Ur Squamous Epith Cells 0-4 /hpf (0-5) H 03/16/23 21:15 Amorphous Sediment 1+ /hpf 03/16/23 21:15 Urine Bacteria 2+ /hpf (NONE) H 03/16/23 21:15 Hyaline Casts 0-4 /lpf H 03/16/23 21:15 Urine Mucus 1+ /hpf 03/16/23 21:15 Urine Yeast 1+ /hpf H 03/16/23 21:15 Vancomycin Trough 13.0 ug/mL (10-15) 03/18/23 10:43 Adenovirus (PCR) Not detected (NOT DETECT) 03/16/23 23:02 C. pneumoniae DNA (PCR) Not detected (NOT DETECT) 03/16/23 23:02 Coronavirus 229E (PCR) Not detected (NOT DETECT) 03/16/23 23:02 Human Metapneumovir PCR Not detected (NOT DETECT) 03/16/23 23:02 Influenza A (H1) PCR Not detected (NOT DETECT) 03/16/23 23:02 Influ A (H1/09) PCR Not detected (NOT DETECT) 03/16/23 23:02 Influenza A (H3) PCR Not detected (NOT DETECT) 03/16/23 23:02 Influenza Type A (PCR) Not detected (NOT DETECT) 03/16/23 23:02 Influenza Type B (PCR) Not detected (NOT DETECT) 03/16/23 23:02 M. pneumoniae (PCR) Not detected (NOT DETECT) 03/16/23 23:02 Parainfluenza 1 (PCR) Not detected (NOT DETECT) 03/16/23 23:02 Parainfluenza 2 (PCR) Not detected (NOT DETECT) 03/16/23 23:02 Parainfluenza 3 (PCR) Not detected (NOT DETECT) 03/16/23 23:02 Parainfluenza 4 (PCR) Not detected (NOT DETECT) 03/16/23 23:02 RSV Type A (PCR) Not detected (NOT DETECT) 03/16/23 23:02 RSV Type B (PCR) Not detected (NOT DETECT) 03/16/23 23:02 Entero/Rhino (PCR) Not detected (NOT DETECT) 03/16/23 23:02 SARS-CoV-2 (PCR) Not detected (NOT DETECT) 03/16/23 23:02 MRSA (PCR) Not detected (NOT DETECTED) 03/18/23 12:58 Vitals Last Vital Signs Temp 98.6 F 03/28/23 13:49 Pulse 63 03/28/23 13:49 Resp 18 03/28/23 13:49 BP 160/81 03/28/23 13:49 Pulse Ox 95 03/28/23 13:49 O2 Del Method Room Air 03/28/23 11:58 O2 Flow Rate 3 03/23/23 07:58 FiO2 30 03/19/23 11:24 Discharge Plan Discharge Patient Disposition: Hospice - Home Condition: Stable Prescriptions: New olopatadine 0.1 % Drops 1 drp eye-both BID 7 Days Qty: 5 0RF Isopto Tears 0.5 % Drops 1 drp eye-both Q6H 30 Days Qty: 30 0RF Continued multivitamin Tablet 1 tab PO DAILY tamsulosin 0.4 mg capsule 0.4 mg PO DAILY cholecalciferol (vitamin D3) 50 mcg (2,000 unit) capsule 50 mcg PO DAILY calcium carbonate 600 mg calcium (1,500 mg) tablet 400 mg PO BID carbidopa-levodopa 25-100 mg tablet 1 tab PO TID Rx Instructions: 0700,1100,1300 rivastigmine tartrate 1.5 mg capsule 1.5 mg PO BID Prolia 60 mg/mL syringe 60 mg SUBCUT .twice yearly famotidine 20 mg tablet 20 mg PO BID Qty: 60 3RF lisinopril 5 mg Tablet 5 mg PO DAILY PRN (Reason: High BP) amantadine HCl 100 mg Capsule 100 mg PO BID methenamine hippurate 1 gram Tablet 1 g PO BID paroxetine HCl 40 mg Tablet 40 mg PO BEDTIME trazodone 50 mg Tablet 50 mg PO BEDTIME Miralax 17 gram Powder In Packet 17 g PO DAILY ropinirole 3 mg tablet 3 mg PO TID aspirin 81 mg Tablet,Delayed Release (Dr/Ec) 81 mg PO DAILY melatonin 5 mg Tablet 5 mg PO BEDTIME Discontinued cephalexin 500 mg Capsule 500 mg PO DAILY Discharge Orders: Discharge Order (Routine); Ordered 03/28/23 Ordered By: Krysta Davis Referrals: Maxim Wang MD [Primary Care Provider] - Patient Instructions: Opioid Safety Discharge Attestations Time Spent in Discharge Care*: greater than 30 min Quality Metrics Clinical Quality Measures [ No reported AMI, CVA or VTE this stay] Coding Level of Care Code Acute Code for Chg Fwd Diagnoses Sepsis with acute hypoxic respiratory failure without septic shock, due to unspecified organism A41.9; R65.20; J96.01 Acute respiratory failure type: with hypoxia Sepsis acute organ dysfunction status: with acute organ dysfunction Sepsis type: sepsis due to unspecified organism Severe sepsis acute organ dysfunction type: acute respiratory failure Severe sepsis shock status: without septic shock Urinary tract infection associated with indwelling urethral catheter, initial encounter T83.511A; N39.0 Encounter type: initial encounter Indwelling urinary catheter type: indwelling urethral catheter Urinary tract infection type: catheter-associated UTI Acute hypoxic respiratory failure J96.01 Pneumonia J18.9 Pneumonia type: due to unspecified organism Parkinson's disease, unspecified whether dyskinesia present, unspecified whether manifestations fluctuate G20.A1 Dyskinesia presence: unspecified whether dyskinesia Fluctuating manifestations: unspecified whether manifestations fluctuate Hypotension I95.9 Hypernatremia E87.0 Hypokalemia E87.6
== END 2023-03-28 13:35 | disposition hospice, home (50) | DRG 871 ==
LOC: ER 22:43 → ER IP 23:39 → ICU 03-17 03:35 → MEDSURG 03-20 13:21
PROVIDERS: Internal Medicine; Admitting Provider Internal Medicine; Emergency Provider Emergency Medicine; PCP Family Medicine; Visit Provider Student in an Organized Health Care Education/Training Program
DX: A41.9 Sepsis, unspecified organism (principal); J96.01 Acute respiratory failure with hypoxia; T83.511A Infection and inflammatory reaction due to indwelling urethral catheter, initial encounter; N39.0 Urinary tract infection, site not specified; E87.0 Hyperosmolality and hypernatremia; R65.20 Severe sepsis without septic shock; G20.C Parkinsonism, unspecified; F02.80 Dementia in other diseases classified elsewhere, unspecified severity, without behavioral disturbance, psychotic disturbance, mood disturbance, and anxiety; I48.91 Unspecified atrial fibrillation; Z79.2 Long term (current) use of antibiotics; N40.0 Benign prostatic hyperplasia without lower urinary tract symptoms; Z93.1 Gastrostomy status; I10 Essential (primary) hypertension; Z98.1 Arthrodesis status; Z86.16 Personal history of COVID-19; R00.1 Bradycardia, unspecified; E87.6 Hypokalemia; Z87.440 Personal history of urinary (tract) infections; Z87.01 Personal history of pneumonia (recurrent); Z51.5 Encounter for palliative care; B96.5 Pseudomonas (aeruginosa) (mallei) (pseudomallei) as the cause of diseases classified elsewhere; Y84.6 Urinary catheterization as the cause of abnormal reaction of the patient, or of later complication, without mention of misadventure at the time of the procedure
CPT/HCPCS: 31500; 36415; 36556; 36592; 36600; 51702; 70450; 71045; 71275; 76770; 80048; 80053; 80202; 81001; 82803; 83036; 83605; 83735; 83880; 84100; 84145; 84443; 84484; 85025; 85378; 85610; 85730; 86140; 86403; 87040; 87070; 87077; 87086; 87186; 87205; 87486; 87581; 87633; 87641; 92507; 92523; 92526; 92610; 93005; 93306; 94002; 94003; 94640; 94664; 94799; 96365; 96366; 96367; 96368; 96372; 96376; 97110; 97163; 97165; 97530; 97535; 99291; A4570; C1751; C9113; J0330; J0360; J1200; J1650; J1940; J2185; J2543; J2704; J3010; J3370; J3490; J7030; J7050; Q9967